=== PATIENT | male | born 1955 | race Caucasian/White ===

== ENCOUNTER 2016-08-04 11:47 | Inpatient (IN) ==
[2016-08-04] MEDS ORDERED: Ipratropium/Albuterol Neb 3 ML ONE (11:59)
[2016-08-04] MEDS ORDERED: Ipratropium/Albuterol Neb 3 ML IH ONE ×3 (12:12→12:38)
[2016-08-04] MEDS ORDERED: Levalbuterol Neb 1.25 MG/3 ML IH ONE (12:38)
--- NOTE | 2016-08-04 12:44 | Emergency Department Note ---
Disposition Clinical Impression: Acute exacerbation of chronic obstructive airways disease Disposition: Admitted As Inpatient Condition: Fair SOB HPI - General Chief Complaint: ED Shortness of Breath/Dyspnea Stated Complaint: has bad cold, Time Seen by Provider: 08/04/16 11:55 Source: patient Limitations: no limitations Nursing Notes Reviewed: Yes Vital Signs Reviewed: Yes - History of Present Illness 60-year-old male presents to the emergency department for evaluation of runny nose, sore throat, and productive cough. Patient is minimally symptoms for the last 6 days. Patient has a prior history of COPD and requires oxygen and nebulizers at home only when symptomatic. Patient has noticed over the last couple days of these require oxygen continuously around the clock and is required multiple breathing treatments at home. Patient complains of tightness to his chest and a feeling of not being able to breathe since last night. He states a fever 102 at home. He denies any localized chest pain denies any vomiting - Related Data Home Medications Medication Instructions Recorded Confirmed Albuterol Sulfate [Proair Hfa] 1 puff IH Q4H 08/04/16 08/04/16 Cyanocobalamin (Vitamin B-12) 1,000 mcg PO DAILY 08/04/16 08/04/16 [Vitamin B12] Cyclobenzaprine HCl 10 mg PO TID PRN 08/04/16 08/04/16 Diclofenac Sodium [Voltaren] 75 mg PO BID 08/04/16 08/04/16 Escitalopram [Lexapro] 10 mg PO DAILY 08/04/16 08/04/16 Fluticasone Propionate Nasal 50 mcg NS BID 08/04/16 08/04/16 [Flonase] Gabapentin [Neurontin] 400 mg PO TID 08/04/16 08/04/16 Ipratropium/Albuterol Neb [Duoneb] 3 ml IH Q6HR 08/04/16 08/04/16 Levofloxacin [Levaquin] 500 mg PO DAILY 08/04/16 08/04/16 Lisinopril [Zestril] 10 mg PO DAILY 08/04/16 08/04/16 Metformin [Glucophage] 1,000 mg PO BIDWM 08/04/16 08/04/16 Mupirocin [Bactroban Oint] 1 appl TP BID 08/04/16 08/04/16 PredniSONE [Deltasone] 20 mg PO DAILY 08/04/16 08/04/16 Allergies Allergy/AdvReac Type Severity Reaction Status Date / Time cephalexin AdvReac Rash Verified 08/04/16 12:08 clindamycin AdvReac Rash Verified 08/04/16 12:08 Review of Systems: Constitutional: See history of present illness HENT: [Negative for congestion.] Eyes: [Negative for discharge.] Respiratory: See history of present illness Cardiovascular: [Negative for chest pain.] Gastrointestinal: [Negative for nausea, vomiting, abdominal pain and diarrhea.] Endocrine: [Negative for excessive thirst,urination] Genitourinary: [Negative for dysuria and frequency.] Musculoskeletal: [Negative for myalgias and arthralgias.] Skin: [Negative for rash.] Neurological: [Negative for dizziness, localized weakness and headaches.] Psychiatric/Behavioral: [Negative for nervous/anxious.] All other systems reviewed and are negative. Past Medical History - Past Medical History Attestation: Yes The following information was validated with the patient. Source: patient Medical history: Reports: arthritis, asthma, COPD, diabetes, hypertension, liver disease, other Surgical history: Reports: hip replacement Psychiatric history: Reports: no psych history - Social History Smoking Status: Current every day smoker Smokeless Tobacco Status: Yes Alcohol use: Reports: none Drug use: Reports: none Physical Exam Constitutional: Patient is alert, obese, [well nourished, well developed], mildly tachypneic and cooperative. . The patient appears, nontoxic, and mildly ill. There is [no pain]. HENT: Head: Normocephalic and atraumatic. Right Ear: External ear normal. Left Ear: External ear normal. Nose: Nose normal. Mouth/Throat: Oropharynx is clear and mucous membranes show [good hydration.][] Eyes: Conjunctivae and EOM are normal. Pupils are equal, round, and reactive to light. Right eye exhibits no discharge. Left eye exhibits no discharge. Neck: Trachea is midline, normal range of motion and phonation normal. Neck supple. Cardiovascular: [Normal rate], regular rhythm, S1 normal, S2 normal, normal heart sounds and intact distal pulses. Exam reveals no gallop and no friction rub. No murmur heard. Pulmonary/Chest: Effort increased No stridor. Mild tachypnea. [No] respiratory distress. There are [no] decreased breath sounds. There are diffuse wheezes and rhonchi heard throughout all lung alexander. There are no Rales Abdominal: Soft. Bowel sounds are normal. There exhibits no distension and no mass. There is no hepatosplenomegaly. There is [no] tenderness, [no] CVA tenderness. There is no rigidity, no rebound, no guarding. Musculoskeletal: Normal range of motion and exhibits [no] edema or tenderness. Neurological: Patient is alert and oriented to [person, place, and time]. Patient displays no atrophy and no tremor. No cranial nerve deficit and exhibits normal muscle tone. Coordination normal. Skin: Skin is warm and dry. No rash noted. No erythema. Psychiatric: Patient has a normal mood,affect, behavior, judgment, and thought content. Course Vital Signs Temperature 99.0 F 08/04/16 12:04 Pulse Rate 109 08/04/16 12:04 Respiratory Rate 24 08/04/16 12:04 Blood Pressure 147/102 08/04/16 12:04 O2 Sat by Pulse Oximetry 98 08/04/16 12:04 Temperature 97.8 F 08/07/16 00:00 Pulse Rate 103 08/07/16 00:00 Respiratory Rate 16 08/07/16 00:00 Blood Pressure 130/85 08/07/16 00:00 O2 Sat by Pulse Oximetry 93 L 08/07/16 00:00 Oxygen Delivery Oxygen Delivery Aerosol Mask Shortness of Breath/Dyspnea - [facility] Narrative Medical decision making narrative: The patient has shown no improvement with breathing treatments and steroids. I discussed the case with Dr. David hospitalist who agrees with admission. - Lab Data Lab results reviewed: Yes I reviewed the patient's lab results. Result diagrams: 08/06/16 05:20 08/04/16 12:10 Lab Results 08/04/16 08/04/16 08/04/16 Range/Units 12:10 12:10 12:10 WBC 13.5 H (4.3-11.1) K/mcL RBC 4.34 (4.19-5.50) M/mcL Hgb 11.1 L (12.9-16.9) g/dL Hct 34.6 L (37.5-50.1) % MCV 79.7 L (83.0-100.0) fL MCH 25.6 L (28.0-33.3) pg MCHC 32.1 (31.6-35.5) g/dL RDW 15.3 H (11.5-14.5) % Plt Count 273 (140-400) K/mcL MPV 9.0 L (9.4-12.4) fL Immature Gran % 0.7 (0-4) % Seg Neutrophils % 79.2 % Lymphocytes % 12.3 % Monocytes % 6.6 % Eosinophils % 1.0 % Basophils % 0.2 % Neutrophils # 10.7 H (1.6-8.9) K/mcL Lymphocytes # 1.7 (0.6-4.6) K/mcL Monocytes # 0.9 (0.0-1.3) K/mcL Eosinophils # 0.1 (0.0-0.6) K/mcL Basophils # 0.0 (0.0-0.2) K/mcL PT 20.3 H (9.4-12.1) Seconds INR 1.8 APTT 31.9 (26.0-36.0) Seconds Sodium 136 (136-145) mEq/L Potassium 3.8 (3.5-4.5) mEq/L Chloride 97 L (98-109) mEq/L Carbon Dioxide 28 (19-29) mEq/L BUN 15 (8-26) mg/dL Creatinine 0.86 (0.72-1.25) mg/dL Est GFR ( Amer) > 60 (> 60) Est GFR (Non-Af Amer) > 60 (> 60) BUN/Creatinine Ratio 17 (6-26) Glucose 105 H (70-99) mg/dL POC Glucose (58-89) Calculated Osmolality 283 (280-300) Calcium 9.7 (8.6-10.8) mg/dL Total Bilirubin 0.8 (0.2-1.2) mg/dL Direct Bilirubin 0.4 (0.0-0.5) mg/dL Indirect Bilirubin 0.4 (0.0-1.2) mg/dL AST 26 (5-34) Units/L ALT 39 (0-55) Units/L Alkaline Phosphatase 94 (38-126) Units/L Troponin I (0-0.03) ng/mL B-Natriuretic Peptide (0-100) pg/mL Serum Total Protein 7.1 (6.0-8.3) g/dL Albumin 3.0 L (3.5-5.0) g/dL Globulin 4.1 H (2.4-3.5) g/dL Albumin/Globulin Ratio 0.7 L (1.1-2.2) 08/04/16 08/04/16 08/04/16 Range/Units 12:10 12:10 16:46 WBC (4.3-11.1) K/mcL RBC (4.19-5.50) M/mcL Hgb (12.9-16.9) g/dL Hct (37.5-50.1) % MCV (83.0-100.0) fL MCH (28.0-33.3) pg MCHC (31.6-35.5) g/dL RDW (11.5-14.5) % Plt Count (140-400) K/mcL MPV (9.4-12.4) fL Immature Gran % (0-4) % Seg Neutrophils % % Lymphocytes % % Monocytes % % Eosinophils % % Basophils % % Neutrophils # (1.6-8.9) K/mcL Lymphocytes # (0.6-4.6) K/mcL Monocytes # (0.0-1.3) K/mcL Eosinophils # (0.0-0.6) K/mcL Basophils # (0.0-0.2) K/mcL PT (9.4-12.1) Seconds INR APTT (26.0-36.0) Seconds Sodium (136-145) mEq/L Potassium (3.5-4.5) mEq/L Chloride (98-109) mEq/L Carbon Dioxide (19-29) mEq/L BUN (8-26) mg/dL Creatinine (0.72-1.25) mg/dL Est GFR ( Amer) (> 60) Est GFR (Non-Af Amer) (> 60) BUN/Creatinine Ratio (6-26) Glucose (70-99) mg/dL POC Glucose 148 H (58-89) Calculated Osmolality (280-300) Calcium (8.6-10.8) mg/dL Total Bilirubin (0.2-1.2) mg/dL Direct Bilirubin (0.0-0.5) mg/dL Indirect Bilirubin (0.0-1.2) mg/dL AST (5-34) Units/L ALT (0-55) Units/L Alkaline Phosphatase (38-126) Units/L Troponin I 0.01 (0-0.03) ng/mL B-Natriuretic Peptide < 10 (0-100) pg/mL Serum Total Protein (6.0-8.3) g/dL Albumin (3.5-5.0) g/dL Globulin (2.4-3.5) g/dL Albumin/Globulin Ratio (1.1-2.2) 08/04/16 08/05/16 08/05/16 Range/Units 20:09 07:19 11:25 WBC (4.3-11.1) K/mcL RBC (4.19-5.50) M/mcL Hgb (12.9-16.9) g/dL Hct (37.5-50.1) % MCV (83.0-100.0) fL MCH (28.0-33.3) pg MCHC (31.6-35.5) g/dL RDW (11.5-14.5) % Plt Count (140-400) K/mcL MPV (9.4-12.4) fL Immature Gran % (0-4) % Seg Neutrophils % % Lymphocytes % % Monocytes % % Eosinophils % % Basophils % % Neutrophils # (1.6-8.9) K/mcL Lymphocytes # (0.6-4.6) K/mcL Monocytes # (0.0-1.3) K/mcL Eosinophils # (0.0-0.6) K/mcL Basophils # (0.0-0.2) K/mcL PT (9.4-12.1) Seconds INR APTT (26.0-36.0) Seconds Sodium (136-145) mEq/L Potassium (3.5-4.5) mEq/L Chloride (98-109) mEq/L Carbon Dioxide (19-29) mEq/L BUN (8-26) mg/dL Creatinine (0.72-1.25) mg/dL Est GFR ( Amer) (> 60) Est GFR (Non-Af Amer) (> 60) BUN/Creatinine Ratio (6-26) Glucose (70-99) mg/dL POC Glucose 141 H 187 H 201 H (58-89) Calculated Osmolality (280-300) Calcium (8.6-10.8) mg/dL Total Bilirubin (0.2-1.2) mg/dL Direct Bilirubin (0.0-0.5) mg/dL Indirect Bilirubin (0.0-1.2) mg/dL AST (5-34) Units/L ALT (0-55) Units/L Alkaline Phosphatase (38-126) Units/L Troponin I (0-0.03) ng/mL B-Natriuretic Peptide (0-100) pg/mL Serum Total Protein (6.0-8.3) g/dL Albumin (3.5-5.0) g/dL Globulin (2.4-3.5) g/dL Albumin/Globulin Ratio (1.1-2.2) - Radiology Data Radiology results reviewed: Yes I reviewed the patient's radiology results. I have contemporaneously read the radiology report from the radiologist which has the following findings: Chest x-ray IMPRESSION: Mildly prominent lung markings at the bilateral infrahilar regions, may be related to bronchitis versus early pneumonia. - EKG Data EKG attestation: Yes I reviewed and interpreted this EKG. EKG shows normal: Reports: sinus rhythm, axis, intervals, QRS complexes, ST-T waves Rate: Reports: tachycardia
[2016-08-04 12:51] LABS: Basophils % 0.2 %; Eosinophils # 0.1 K/mcL (0.0-0.6); Hematocrit 34.6 % (37.5-50.1); Hemoglobin 11.1 g/dL (12.9-16.9); Immature Granulocytes % 0.7 % (0-4); Lymphocytes # 1.7 K/mcL (0.6-4.6); Lymphocytes % 12.3 %; Mean Corpuscular HGB Conc 32.1 g/dL (31.6-35.5); Mean Corpuscular Hemoglobin 25.6 pg (28.0-33.3); Mean Corpuscular Volume 79.7 fL (83.0-100.0); Monocytes # 0.9 K/mcL (0.0-1.3); Monocytes % 6.6 %; Neutrophils # 10.7 K/mcL (1.6-8.9); Platelet Count 273 K/mcL (140-400); Red Blood Count 4.34 M/mcL (4.19-5.50); Red Cell Distribution Width 15.3 % (11.5-14.5); Segmented Neutrophils % 79.2 %
[2016-08-04 12:53] LABS: Alanine Aminotransferase 39 Units/L (0-55); Albumin/Globulin Ratio 0.7 (1.1-2.2); Alkaline Phosphatase 94 Units/L (38-126); Aspartate Amino Transferase 26 Units/L (5-34); BUN/Creatinine Ratio 17 (6-26); Bilirubin,Direct 0.4 mg/dL (0.0-0.5); Bilirubin,Indirect 0.4 mg/dL (0.0-1.2); Bilirubin,Total 0.8 mg/dL (0.2-1.2); Blood Urea Nitrogen 15 mg/dL (8-26); Calcium 9.7 mg/dL (8.6-10.8); Carbon Dioxide 28 mEq/L (19-29); Chloride 97 mEq/L (98-109); Globulin 4.1 g/dL (2.4-3.5); Glucose 105 mg/dL (70-99); Osmolality,Calculated 283 (280-300); Potassium 3.8 mEq/L (3.5-4.5); Sodium 136 mEq/L (136-145); Total Protein 7.1 g/dL (6.0-8.3); eGFR For African Americans > 60 (> 60); eGFR For Non-African Americans > 60 (> 60)
[2016-08-04 13:08] LABS: INR 1.8; Prothrombin Time 20.3 Seconds (9.4-12.1)
[2016-08-04 13:11] LABS: Activated Partial Thrombo Time 31.9 Seconds (26.0-36.0)
[2016-08-04] MEDS ORDERED: Naloxone 0.4 MG/ML INJ IVP PRN ×2 (13:48→13:54)
[2016-08-04] MEDS ORDERED: Ondansetron ODT 4 MG TAB.RAPDIS SL PRN (13:54)
[2016-08-04] MEDS ORDERED: Ipratropium/Albuterol Neb 3 ML IH SCH ×2 (14:00→16:00)
[2016-08-04] MEDS ORDERED: Albuterol 2.5 MG/3 ML NEBULIZER IH SCH (14:00)
--- NOTE | 2016-08-04 14:33 | Electrocardiograph Report ---
[facility] Test Date: 2016-08-04 Pat Name: Ceht Bose Department: 2001 Room: 116 Gender: M [employer]: Tlc : 1955 Requested By: Brad Smith Order Number: [id number] Susanne MD: Zachary Granado DO Measurements Intervals [place] Rate: 108 P: 59 MD: 150 QRS: 51 QRSD: 106 T: 53 QT: 310 QTc: 373 Interpretive Statements Sinus tachycardia Electronically Signed On 08-04-16 14:32:05 EST by Zachary Granado DO
[2016-08-04] MEDS: Acetaminophen 325 MG TABLET PO PRN ×2 (15:33→23:12)
[2016-08-04] MEDS: Gabapentin 400 MG CAPSULE PO SCH ×2 (15:34→20:47)
--- NOTE | 2016-08-04 15:43 | Internal Med History&Physical ---
Date of Encounter: 08/10/16 Time of Encounter: 15:40 Assessment and Plan (1) AB (asthmatic bronchitis) Status: Acute Qualifiers: Asthma severity: moderate persistent Asthma complication type: with acute exacerbation Qualified Code(s): J45.41 - Moderate persistent asthma with ( acute) exacerbation (2) Pneumonia Status: Acute Aggressive steroids and antibiotics breathing treatments etc. (3) Acute exacerbation of COPD with asthma Status: Acute See above. History of asthma COPD and obviously an acute viral and/or bacterial infection Internal Medicine - H&P: HPI Chief complaint: Patient feels increasingly short of breath coughing productive green sputum Admitted From: Emergency Dept Plans for Post Hospital Care: Home History of present illness: Mr. Bose is a 60 year old male Patient states her last several days she has had increasing shortness of breath in spite of wearing O2 at all times and using his nebulizer. Past Med Surg Social Fam HX - Past Medical History Medical history: arthritis, asthma, COPD, diabetes, hypertension, liver disease , other Psychiatric history: no psych history - Past Surgical History Surgical History: hip replacement - Social History Smoking Status: Current every day smoker Smokeless Tobacco Status: Yes Alcohol use: none Drug use: none Internal Medicine - H&P: Meds Albuterol Sulfate [Proair Hfa] 1 puff IH Q4H 08/04/16 [History] Cyanocobalamin (Vitamin B-12) [Vitamin B12] 1,000 mcg PO DAILY 08/04/16 [History ] Cyclobenzaprine HCl 10 mg PO TID PRN 08/04/16 [History] Diclofenac Sodium [Voltaren] 75 mg PO BID 08/04/16 [History] Escitalopram [Lexapro] 10 mg PO DAILY 08/04/16 [History] Fluticasone Propionate Nasal [Flonase] 50 mcg NS BID 08/04/16 [History] Gabapentin [Neurontin] 400 mg PO TID 08/04/16 [History] Ipratropium/Albuterol Neb [Duoneb] 3 ml IH Q6HR 08/04/16 [History] Lisinopril [Zestril] 10 mg PO DAILY 08/04/16 [History] Metformin [Glucophage] 1,000 mg PO BIDWM 08/04/16 [History] Mupirocin [Bactroban Oint] 1 appl TP BID 08/04/16 [History] Levofloxacin [Levaquin] 500 mg PO DAILY #7 tablet 08/07/16 [Rx] PredniSONE [Deltasone] 60 mg PO DAILY #15 tablet 08/07/16 [Rx] Allergies cephalexin Adverse Reaction (Verified 08/04/16 12:08) Rash clindamycin Adverse Reaction (Verified 08/04/16 12:08) Rash All Systems PM: A 10-system review of systems was performed and is negative for pertinent findings except as documented above in the HPI. - Constitutional Vitals: Temp Pulse Resp BP Pulse Ox 98.3 F 100 24 136/82 95 08/04/16 15:17 08/04/16 15:17 08/04/16 15:17 08/04/16 15:17 08/04/16 15:17 - Head Head exam: Present: atraumatic, normal inspection, normocephalic - Neck Neck exam general surgery: Present: supple, trachea midline. Absent: lymphadenopathy - Respiratory Respiratory exam: Present: CTAB, prolonged expiratory phase. Absent: accessory muscle use, rales, rhonchi, wheezes Additional comments: Patient has some very coarse breath sounds increased rhonchi and expiratory wheezes bilaterally. - Cardiovascular Cardiovascular exam: Present: RRR, +S1, +S2. Absent: diastolic murmur, gallop, rubs, systolic murmur - GI/Abdominal GI/Abdominal exam: Present: normal bowel sounds, soft, no peritoneal signs. Absent: distended, tenderness Internal Med - H&P Results - Labs CBC & Chem 7: 08/06/16 05:20 08/04/16 12:10 Labs: Labs noted - VTE Reasons for not Prescribing Prophylaxis: Treatment not Indicated - Low risk for VTE
[2016-08-04] MEDS: Levofloxacin 500 MG/100 ML 500 MG/100 ML BAG IVPB SCH (16:03)
[2016-08-04] MEDS: Ipratropium/Albuterol Neb 3 ML IH SCH ×2 (16:04→20:47)
[2016-08-04] MEDS: MethylPREDNISolone 40 MG/ML VIAL IVP SCH ×2 (16:04→23:11)
[2016-08-04] MEDS: *HR* Metformin 500 MG TABLET PO SCH (16:04)
[2016-08-04] MEDS: Fluticasone Propionate Nasal 50 MCG/SPRAY BOTTLE NS SCH (20:47)
[2016-08-04] MEDS: Diclofenac Sodium 75 MG TABLET PO SCH (20:47)
[2016-08-05] MEDS ORDERED: Albuterol 2.5 MG/3 ML NEBULIZER IH SCH
[2016-08-05] MEDS: Ipratropium/Albuterol Neb 3 ML IH SCH ×4 (03:18→21:25)
[2016-08-05] MEDS: MethylPREDNISolone 40 MG/ML VIAL IVP SCH ×3 (06:23→17:29)
[2016-08-05] MEDS: Albuterol 2.5 MG/3 ML NEBULIZER IH PRN ×2 (06:28→16:14)
[2016-08-05] MEDS ORDERED: PredniSONE 20 MG TABLET PO SCH (09:00)
[2016-08-05] MEDS: Fluticasone Propionate Nasal 50 MCG/SPRAY BOTTLE NS SCH ×2 (09:51→21:11)
[2016-08-05] MEDS: *HR* Metformin 500 MG TABLET PO SCH ×2 (09:51→17:29)
[2016-08-05] MEDS: Gabapentin 400 MG CAPSULE PO SCH ×3 (09:51→21:11)
[2016-08-05] MEDS: Diclofenac Sodium 75 MG TABLET PO SCH ×2 (09:51→21:12)
[2016-08-05] MEDS: Cyanocobalamin (B-12) 1,000 MCG TABLET PO SCH (09:51)
--- NOTE | 2016-08-05 13:25 | Internal Med Progress Note ---
Date of Encounter: 08/05/16 Time of Encounter: 13:23 - Assessment and plan (1) AB (asthmatic bronchitis) Current Visit: Yes Status: Acute Assessment and plan: Possible bacterial or viral bronchitis along with COPD Qualifiers: Asthma severity: moderate persistent Asthma complication type: with acute exacerbation Qualified Code(s): J45.41 - Moderate persistent asthma with ( acute) exacerbation (2) Pneumonia Current Visit: Yes Status: Acute Assessment and plan: Questionable pneumonic process will follow chest x-ray. Current chest x-ray shows questionable area by basilarly. That might be worse (3) Acute exacerbation of COPD with asthma Current Visit: Yes Status: Acute Assessment and plan: Possible infectious etiology exacerbating this. - Time Spent With Patient less than 15 minutes - Subjective Interval history: Feels a little better 8 regions maybe a little easier. Her cough and up as much sputum - Constitutional Vitals: Temp Pulse Resp BP Pulse Ox 98.2 F 97 17 139/66 94 L 08/05/16 11:00 08/05/16 11:00 08/05/16 11:00 08/05/16 11:00 08/05/16 11:00 - Head Head exam: Present: atraumatic, normal inspection, normocephalic - Neck Neck exam general surgery: Present: supple, trachea midline. Absent: lymphadenopathy - Respiratory Respiratory exam: Present: CTAB. Absent: accessory muscle use, rales, rhonchi, wheezes Additional comments: Still some rhonchi and still some expiratory wheezes but they are improved from yesterday - GI/Abdominal GI/Abdominal exam: Present: normal bowel sounds, soft, no peritoneal signs. Absent: distended, tenderness Internal Medicine: Result - Labs CBC & Chem 7: 08/04/16 12:10 08/04/16 12:10 Labs: Lab is stable - ABG Interpretation ABG results: PT/INR, D-dimer PT 20.3 Seconds (9.4-12.1) H 08/04/16 12:10 - Impressions Impressions Chest X-Ray 08/05/16 15:38 IMPRESSION: Mildly increased bilateral lower lung airspace disease. Pneumonia and pulmonary consolidation are the primary considerations. D/ / Jina Farmer Cha, MD / Jina Farmer Cha, MD Interpreting Provider: Jina Farmer Cha, MD - VTE Reasons for not Prescribing Prophylaxis: Treatment not Indicated - Low risk for VTE Documentation of Mechanical Device: Graduated compression elastic hosiery Consult Discharge Plan - Plan Referrals: Elvira Santiago MD [Primary Care Provider] -
[2016-08-05] MEDS: Levofloxacin 500 MG/100 ML 500 MG/100 ML BAG IVPB SCH (14:20)
[2016-08-06] MEDS: MethylPREDNISolone 40 MG/ML VIAL IVP SCH ×4 (00:29→16:01)
[2016-08-06] MEDS: Albuterol 2.5 MG/3 ML NEBULIZER IH PRN ×2 (00:42→19:36)
[2016-08-06] MEDS: Ipratropium/Albuterol Neb 3 ML IH SCH ×4 (05:35→23:30)
[2016-08-06 05:46] LABS: Basophils # 0.1 K/mcL (0.0-0.2); Basophils % 0.5 %; Hematocrit 34.3 % (37.5-50.1); Hemoglobin 10.9 g/dL (12.9-16.9); Immature Granulocytes % 5.3 % (0-4); Lymphocytes # 1.2 K/mcL (0.6-4.6); Mean Corpuscular HGB Conc 31.8 g/dL (31.6-35.5); Mean Corpuscular Hemoglobin 25.1 pg (28.0-33.3); Mean Corpuscular Volume 78.9 fL (83.0-100.0); Mean Platelet Volume 9.2 fL (9.4-12.4); Monocytes # 0.7 K/mcL (0.0-1.3); Monocytes % 4.2 %; Neutrophils # 14.6 K/mcL (1.6-8.9); Platelet Count 304 K/mcL (140-400); Red Blood Count 4.35 M/mcL (4.19-5.50)
[2016-08-06] MEDS: Fluticasone Propionate Nasal 50 MCG/SPRAY BOTTLE NS SCH ×2 (09:12→23:28)
[2016-08-06] MEDS: Diclofenac Sodium 75 MG TABLET PO SCH ×2 (09:14→23:29)
[2016-08-06] MEDS: Cyanocobalamin (B-12) 1,000 MCG TABLET PO SCH (09:14)
[2016-08-06] MEDS: Gabapentin 400 MG CAPSULE PO SCH ×3 (09:14→23:29)
[2016-08-06] MEDS: *HR* Metformin 500 MG TABLET PO SCH ×2 (09:14→16:01)
[2016-08-06] MEDS: Levofloxacin 500 MG/100 ML 500 MG/100 ML BAG IVPB SCH (16:00)
[2016-08-07] MEDS: MethylPREDNISolone 40 MG/ML VIAL IVP SCH ×2 (00:05→06:19)
[2016-08-07] MEDS: Ipratropium/Albuterol Neb 3 ML IH SCH ×2 (04:28→08:52)
[2016-08-07] MEDS: Albuterol 2.5 MG/3 ML NEBULIZER IH PRN (06:19)
[2016-08-07] MEDS: Fluticasone Propionate Nasal 50 MCG/SPRAY BOTTLE NS SCH (08:51)
[2016-08-07] MEDS: *HR* Metformin 500 MG TABLET PO SCH (08:51)
[2016-08-07] MEDS: Diclofenac Sodium 75 MG TABLET PO SCH (08:52)
[2016-08-07] MEDS: Gabapentin 400 MG CAPSULE PO SCH (08:52)
[2016-08-07] MEDS: Cyanocobalamin (B-12) 1,000 MCG TABLET PO SCH (08:52)
--- NOTE | 2016-08-07 11:36 | Discharge Summary ---
Date of Encounter: 08/07/16 Time of Encounter: 11:33 - Discharge Diagnosis (1) Acute exacerbation of chronic obstructive airways disease Priority: Primary Status: Acute Comments: Improved - Discharge Medications Prescriptions: Levofloxacin [Levaquin] 500 mg PO DAILY #7 tablet PredniSONE [Deltasone] 60 mg PO DAILY #15 tablet Home Medications: Albuterol Sulfate [Proair Hfa] 1 puff IH Q4H 08/04/16 [History] Cyanocobalamin (Vitamin B-12) [Vitamin B12] 1,000 mcg PO DAILY 08/04/16 [History ] Cyclobenzaprine HCl 10 mg PO TID PRN 08/04/16 [History] Diclofenac Sodium [Voltaren] 75 mg PO BID 08/04/16 [History] Escitalopram [Lexapro] 10 mg PO DAILY 08/04/16 [History] Fluticasone Propionate Nasal [Flonase] 50 mcg NS BID 08/04/16 [History] Gabapentin [Neurontin] 400 mg PO TID 08/04/16 [History] Ipratropium/Albuterol Neb [Duoneb] 3 ml IH Q6HR 08/04/16 [History] Lisinopril [Zestril] 10 mg PO DAILY 08/04/16 [History] Metformin [Glucophage] 1,000 mg PO BIDWM 08/04/16 [History] Mupirocin [Bactroban Oint] 1 appl TP BID 08/04/16 [History] Levofloxacin [Levaquin] 500 mg PO DAILY #7 tablet 08/07/16 [Rx] PredniSONE [Deltasone] 60 mg PO DAILY #15 tablet 08/07/16 [Rx] Allergies/Adverse Reactions: Allergies cephalexin Adverse Reaction (Verified 08/04/16 12:08) Rash clindamycin Adverse Reaction (Verified 08/04/16 12:08) Rash Date of admission: 08/05/16 15:30 Primary care physician: Elvira Santiago Discharging clinician: Radha Hector Anticipated date of discharge: 08/07/16 - Patient Status Disposition: Home, Self-Care Condition: Fair Overall status at discharge: patient is back to baseline - Discharge Instructions Instructions: Asthma (DC) Follow Up With: Elvira Santiago MD [Primary Care Provider] - - Diet and Activity Activity: increase activity as tolerated Diet: advance to your usual diet Hospital course: Mr. Bose is a 60 year old male presents to the emergency department for evaluation of runny nose, sore throat, and productive cough. Patient is minimally symptoms for the last 6 days. Patient has a prior history of COPD and requires oxygen and nebulizers at home only when symptomatic. Patient has noticed over the last couple days of these require oxygen continuously around the clock and is required multiple breathing treatments at home. Patient complains of tightness to his chest and a feeling of not being able to breathe since last night. He states a fever 102 at home. He denies any localized chest pain denies any vomiting Patient was admitted for IV antibiotics. Pulmonary treatment was maintained. During his stay due to improved. In the morning of discharge he was feeling much better and wants to go home. He will be sent home to continue with his home nebulizer treatment. He was encouraged to quit smoking. Prescription for Levaquin and prednisone given. Follow up with his primary care physician in the next 2-3 days. Time spent discussing smoking cessation with patient: more than 10 minutes - Time Spent with Patient Total time spent providing and/or coordinating discharge services: Greater than 30 minutes - Constitutional Vitals: Temp Pulse Resp BP Pulse Ox 97.8 F 84 18 126/69 97 08/07/16 07:48 08/07/16 07:48 08/07/16 07:48 08/07/16 07:48 08/07/16 07:48 General appearance: Present: A&O X 3, pleasant, no acute distress - Respiratory Respiratory exam: Present: CTAB. Absent: accessory muscle use, rales, rhonchi, wheezes - Cardiovascular Cardiovascular exam: Present: RRR, +S1, +S2. Absent: diastolic murmur, gallop, rubs, systolic murmur - GI/Abdominal GI/Abdominal exam: Present: normal bowel sounds, soft, no peritoneal signs. Absent: distended, tenderness - Extremities Exam Extremities exam: Present: warm, radial pulses palpable and symetrical. Absent : calf tenderness, cyanotic, pedal edema - Neurological Exam Neurological exam: Present: CN II-XII intact, oriented X3, no focal deficits. Absent: pronater drift, facial droop, speech deficit - Skin Skin exam: Present: dry, intact - VTE Reasons for not Prescribing Prophylaxis: Treatment not Indicated - Low risk for VTE Documentation of Mechanical Device: Graduated compression elastic hosiery
[2016-08-07 12:07] VITALS: BP 98/51
== END 2016-08-07 13:00 | disposition home or self-care (01) | DRG 190 ==
LOC: EMEROOGRE 11:47 → INPGRE 11:47
PROVIDERS: ADMIT Internal Medicine; ATTEND Internal Medicine

== ENCOUNTER 2017-08-09 21:13 | Observation (INO) ==
--- NOTE | 2017-08-09 21:21 | Emergency Department Note ---
Disposition Clinical Impression: Acute exacerbation of chronic obstructive airways disease, Dehydration Disposition: Admitted As Inpatient SOB HPI - General Stated Complaint: Difficulty breathing Time Seen by Provider: 08/09/17 21:15 Source: patient Mode of arrival: ambulatory Limitations: no limitations Nursing Notes Reviewed: Yes Vital Signs Reviewed: Yes - History of Present Illness Patient says he thinks is coming down with the flu. He has been increasingly short of breath for the past couple of days. He has a cough but is not coughing anything up. He has not had a fever. He says he been using his breathing machine but can only afford albuterol handheld DuoNeb and that is not helping as much. Denies any chest pain Pt Subjective Complaint: shortness of breath, cough Onset (ago): day(s) (2) Severity: moderate Consistency/Duration: intermittent Improves with: oxygen, rest, bronchodilators Worsens with: exertion Known history of: COPD Associated symptoms: Reports: cough. Denies: chest pain, sputum production, nausea/vomiting, abdominal pain - Related Data Home Medications Medication Instructions Recorded Confirmed Albuterol Sulfate [Proair Hfa] 1 puff IH Q4H 08/04/16 08/09/17 Cyanocobalamin (Vitamin B-12) 1,000 mcg PO DAILY 08/04/16 08/09/17 [Vitamin B12] Cyclobenzaprine HCl 10 mg PO TID PRN 08/04/16 08/09/17 Diclofenac Sodium [Voltaren] 75 mg PO BID 08/04/16 08/09/17 Gabapentin [Neurontin] 400 mg PO QID 08/04/16 08/09/17 Ipratropium/Albuterol Neb [Duoneb] 3 ml IH Q6HR PRN 08/04/16 08/09/17 Lisinopril [Zestril] 5 mg PO BID 08/04/16 08/09/17 amLODIPine [Norvasc] 5 mg PO DAILY 06/19/17 08/09/17 Previous Rx's Medication Instructions Recorded Metoprolol [Lopressor] 25 mg PO BID #60 tablet 06/28/17 Tamsulosin [Flomax] 0.4 mg PO DAILY #30 capsule 06/28/17 Allergies Allergy/AdvReac Type Severity Reaction Status Date / Time cephalexin AdvReac Rash Verified 08/09/17 21:23 clindamycin AdvReac Rash Verified 08/09/17 21:23 All systems ED: reviewed and negative except as stated. Review of Systems: As Per HPI Constitutional: Reports: as per HPI Eyes: Denies: eye pain, eye discharge, vision change ENT ED: Denies: ear pain, throat pain, dental pain, hearing loss, epistaxis, congestion, dysphagia Cardiovascular: Denies: chest pain, palpitations, dyspnea on exertion, edema, syncope Respiratory: Reports: cough, dyspnea, wheezes. Denies: hemoptysis, stridor Gastrointestinal: Denies: abdominal pain, nausea, vomiting, diarrhea, constipation, hematemesis, melena, hematochezia Genitourinary: Denies: urgency, dysuria, frequency, hematuria Musculoskeletal: Denies: back pain, neck pain, arthralgia, myalgia Integumentary: Denies: rash, abrasion, lesions Neurological: Denies: headache, weakness, numbness, paresthesias, confusion, abnormal gait, vertigo Psychiatric: Denies: anxiety, depression, suicidal thoughts, homicidal thoughts , auditory hallucinations, visual hallucinations Endocrine: Denies: fatigue Hematological/Lymphatic: Denies: easy bleeding, easy bruising Allergic/Immunologic: Denies: facial swelling, urticaria Past Medical History - Past Medical History Attestation: Yes The following information was validated with the patient. Source: patient, nursing notes reviewed Medical history: Reports: arthritis, asthma, COPD, diabetes, hypertension, other Surgical history: Reports: herniorrhaphy, hip replacement Psychiatric history: Reports: anxiety, depression - Social History Smoking Status: Current every day smoker Smokeless Tobacco Status: Yes Alcohol use: Reports: none Drug use: Reports: none Physical Exam - General Limitations: no limitations General appearance: alert, in no apparent distress - Head Head exam: atraumatic - Eye Eye exam: Present: normal appearance, PERRL, EOMI - ENT ENT exam: normal exam, normal oropharynx, mucous membranes moist - Neck Neck exam: Present: normal inspection, full ROM, trachea midline - Chest Chest inspection: Present: normal inspection, symmetric chest wall rise - Respiratory Respiratory exam: Present: wheezes, prolonged expiratory phase. Absent: respiratory distress, accessory muscle use - Cardiovascular Cardiovascular exam: Present: regular rate - Abdominal Exam Abdominal exam: Present: soft, Non-Tender. Absent: tenderness, distention, guarding, rebound, rigidity - Extremities Exam Extremities exam: Present: normal inspection - Back Exam Back exam: Present: normal inspection - Neurological Exam Neurological exam: Present: alert, oriented X3, CN II-XII intact - Psychiatric Psychiatric exam: Present: normal affect, normal mood - Skin Skin exam: Present: warm, dry, intact Course Vital Signs Temperature 98.8 F 08/09/17 21:19 Pulse Rate 116 08/09/17 21:19 Respiratory Rate 32 08/09/17 21:19 Blood Pressure 134/86 08/09/17 21:19 O2 Sat by Pulse Oximetry 96 08/09/17 21:19 Temperature 98.5 F 08/09/17 23:13 Pulse Rate 115 08/09/17 23:13 Respiratory Rate 18 08/09/17 23:13 Blood Pressure 122/70 08/09/17 23:13 O2 Sat by Pulse Oximetry 95 08/10/17 00:08 Oxygen Delivery Oxygen Delivery Room Air Shortness of Breath/Dyspnea - MDM Narrative Medical decision making narrative: Case was discussed with Dr. David who accepts admission to the hospital. your blood pressure was normal today but follow up periodically with your doctor for a recheck - Lab Data Lab results reviewed: Yes I reviewed the patient's lab results. Result diagrams: 08/09/17 21:35 08/09/17 21:35 Lab Results 08/09/17 08/09/17 08/09/17 Range/Units 21:35 21:35 21:35 WBC 11.9 H (4.3-11.1) K/mcL RBC 4.27 (4.19-5.50) M/mcL Hgb 11.0 L (12.9-16.9) g/dL Hct 35.4 L (37.5-50.1) % MCV 82.9 L (83.0-100.0) fL MCH 25.8 L (28.0-33.3) pg MCHC 31.1 L (31.6-35.5) g/dL RDW 14.3 (11.5-14.5) % Plt Count 318 (140-400) K/mcL MPV 9.3 L (9.4-12.4) fL Immature Gran % 0.5 (0-4) % Seg Neutrophils % 70.2 % Lymphocytes % 17.8 % Monocytes % 5.5 % Eosinophils % 5.6 % Basophils % 0.4 % Neutrophils # 8.4 (1.6-8.9) K/mcL Lymphocytes # 2.1 (0.6-4.6) K/mcL Monocytes # 0.7 (0.0-1.3) K/mcL Eosinophils # 0.7 H (0.0-0.6) K/mcL Basophils # 0.1 (0.0-0.2) K/mcL Sodium 141 (136-145) mEq/L Potassium 5.2 H (3.5-4.5) mEq/L Chloride 103 (98-109) mEq/L Carbon Dioxide 27 (19-29) mEq/L BUN 32 H (8-26) mg/dL Creatinine 1.85 H (0.72-1.25) mg/dL Est GFR ( Amer) 45 L (> 60) Est GFR (Non-Af Amer) 37 L (> 60) BUN/Creatinine Ratio 17 (6-26) Glucose 111 H (70-99) mg/dL Calculated Osmolality 300 (280-300) Calcium 10.2 (8.6-10.8) mg/dL Troponin I 0.02 (0-0.03) ng/mL - Radiology Data Radiology results reviewed: Yes I reviewed the patient's radiology results. - EKG Data EKG attestation: Yes I reviewed and interpreted this EKG. EKG results narrative: EKG shows relative sinus tachycardia at a rate of 117 bpm by my read. [place] interval of 151 ms QRS duration of 86 ms QT QTC intervals 281 at 351 ms respectively R axis of 72 degrees
[2017-08-09] MEDS ORDERED: methylPREDNISolone 125 MG/2 ML VIAL IVP ONE (21:22)
[2017-08-09] MEDS ORDERED: Ipratropium/Albuterol Neb 3 ML IH ONE (21:22)
[2017-08-09 21:43] LABS: Basophils # 0.1 K/mcL (0.0-0.2); Basophils % 0.4 %; Eosinophils # 0.7 K/mcL (0.0-0.6); Eosinophils % 5.6 %; Hematocrit 35.4 % (37.5-50.1); Immature Granulocytes % 0.5 % (0-4); Lymphocytes # 2.1 K/mcL (0.6-4.6); Lymphocytes % 17.8 %; Mean Corpuscular HGB Conc 31.1 g/dL (31.6-35.5); Mean Corpuscular Hemoglobin 25.8 pg (28.0-33.3); Mean Corpuscular Volume 82.9 fL (83.0-100.0); Mean Platelet Volume 9.3 fL (9.4-12.4); Monocytes # 0.7 K/mcL (0.0-1.3); Monocytes % 5.5 %; Neutrophils # 8.4 K/mcL (1.6-8.9); Platelet Count 318 K/mcL (140-400); Red Blood Count 4.27 M/mcL (4.19-5.50); Red Cell Distribution Width 14.3 % (11.5-14.5); Segmented Neutrophils % 70.2 %
[2017-08-09 21:56] LABS: Calcium 10.2 mg/dL (8.6-10.8); Potassium 5.2 mEq/L (3.5-4.5)
[2017-08-09] MEDS ORDERED: Nitroglycerin 0.4 MG TAB.SUBL SL PRN (22:13)
[2017-08-09] MEDS ORDERED: Albuterol 2.5 MG/3 ML NEBULIZER IH ONE (22:14)
[2017-08-09] MEDS ORDERED: Levofloxacin 500 MG/100 ML 500 MG/100 ML BAG IVPB ONE (22:15)
[2017-08-09] MEDS ORDERED: Famotidine 20 MG TABLET PO SCH (22:45)
[2017-08-10] MEDS ORDERED: Nitroglycerin 0.4 MG TAB.SUBL SL PRN (00:52)
[2017-08-10] MEDS ORDERED: Acetaminophen 325 MG TABLET PO PRN (00:52)
[2017-08-10] MEDS ORDERED: 0.9 % Sodium Chloride 1,000 ML IVC SCH (00:52)
[2017-08-10] MEDS ORDERED: Naloxone 0.4 MG/ML INJ IVP PRN (00:52)
[2017-08-10] MEDS ORDERED: Mag Hydrox/Al Hydrox/Simeth 30 ML UDC PO PRN (00:52)
[2017-08-10] MEDS ORDERED: 0.9 % Sodium Chloride 1,000 ML ONE (01:06)
[2017-08-10] MEDS: Ipratropium/Albuterol Neb 3 ML IH SCH ×3 (03:58→13:45)
[2017-08-10 04:45] LABS: Basophils % 0.2 %; Eosinophils % 0.1 %; Hematocrit 34.5 % (37.5-50.1); Hemoglobin 10.6 g/dL (12.9-16.9); Immature Granulocytes % 0.5 % (0-4); Lymphocytes # 0.6 K/mcL (0.6-4.6); Lymphocytes % 4.8 %; Mean Corpuscular HGB Conc 30.7 g/dL (31.6-35.5); Mean Corpuscular Hemoglobin 25.7 pg (28.0-33.3); Mean Corpuscular Volume 83.5 fL (83.0-100.0); Mean Platelet Volume 9.6 fL (9.4-12.4); Monocytes # 0.1 K/mcL (0.0-1.3); Monocytes % 0.5 %; Neutrophils # 12.3 K/mcL (1.6-8.9); Platelet Count 284 K/mcL (140-400); Red Blood Count 4.13 M/mcL (4.19-5.50); Red Cell Distribution Width 14.2 % (11.5-14.5); Segmented Neutrophils % 93.9 %
[2017-08-10 04:55] LABS: Calcium 10.3 mg/dL (8.6-10.8)
[2017-08-10] MEDS ORDERED: Diclofenac Sodium 75 MG TABLET PO SCH (09:00)
[2017-08-10] MEDS ORDERED: amLODIPine 5 MG TABLET PO SCH (09:00)
[2017-08-10] MEDS ORDERED: Famotidine 20 MG TABLET PO SCH ×2 (09:00→21:00)
[2017-08-10] MEDS ORDERED: Cyanocobalamin (B-12) 1,000 MCG TABLET PO SCH (09:00)
[2017-08-10] MEDS: Gabapentin 400 MG CAPSULE PO SCH ×2 (10:08→12:33)
[2017-08-10 12:00] VITALS: BP 115/70
--- NOTE | 2017-08-10 12:14 | Electrocardiograph Report ---
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
--- NOTE | 2017-08-10 12:21 | Electrocardiograph Report ---
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
[2017-08-10] MEDS ORDERED: Benzonatate 100 MG CAPSULE PO PRN (12:56)
[2017-08-10] MEDS ORDERED: predniSONE 20 MG TABLET PO SCH (13:00)
--- NOTE | 2017-08-10 13:06 | Internal Med History&Physical ---
Date of Encounter: 08/10/17 Time of Encounter: 13:04 Assessment and Plan (1) Acute exacerbation of chronic obstructive airways disease Current visit: No Status: Acute Patient admitted through ED with complaints of increasing shortness of breath and flulike symptoms that began approximately 2 weeks ago. Patient currently is afebrile. Chest x-ray showed no acute infectious process. Patient continues with a persistent dry cough, which he states has been present for the past week. Patient states a history of frequent bronchitis and progressing COPD. Continues with tobacco abuse. Will continue with current bronchodilators. We will start on prednisone for possible viral bronchitis. Patient has remained afebrile with no sputum production noted during cough. We will discuss with Frankie for further recommendations (2) Diabetes Current visit: No Status: Chronic Patient is a type II diabetic who states he was diet-controlled at home. States he has taken metformin before in the past. Patient's glucose on labs was greater than 200, but patient has received a dose of large Solu-Medrol while in the emergency department. We will start on fingersticks and obtain a hemoglobin A1c. We will continue with diet-controlled management. Qualifiers: Diabetes mellitus type: type 2 Diabetes mellitus complication status: with kidney complications Diabetes mellitus complication detail: with chronic kidney disease Diabetes mellitus long term care pharmacist insulin use: without chcf use Chronic kidney disease stage: stage 3 (moderate) Qualified Code(s): E11.22 - Type 2 diabetes mellitus with diabetic chronic kidney disease; N18.3 - Chronic kidney disease, stage 3 (moderate); N18.3 - Chronic kidney disease, stage 3 (moderate) (3) Chronic kidney disease Current visit: Yes Status: Chronic Patient states long history of chronic kidney disease. Patient's creatinine on admission was 1.95 with a BUN of 35. Patient's potassium on last labs was 6.0. Patient currently on no potassium supplements. We will give a dose of Kayexalate and recheck patient's labs in the morning. Qualifiers: Chronic kidney disease stage: stage 3 (moderate) Qualified Code(s): N18.3 - Chronic kidney disease, stage 3 (moderate) Internal Medicine - H&P: HPI Chief complaint: dyspnea Admitted From: Home Plans for Post Hospital Care: Home History of present illness: Mr. Bose is a 61 year old male who was admitted to the emergency department for complaints of shortness of breath. Patient has a long history of progressing COPD and continues to smoke at home. Patient states that he has had increasing weakness and flulike symptoms over the past 2 weeks and then during the past 2 days he became increasingly short of breath. Patient states that he uses nebulizer treatments at home and has oxygen for when necessary use. Patient states that he has had a chronic cough that has persisted over the past 2 weeks, but rarely produces any sputum. Denies any fever or chills. Denies any chest discomforts. Denies nausea or vomiting. Patient has had 2 chest x-rays since his admission with both showing no acute infectious process. Patient has had serial troponins performed with both being negative. Patient is a diet-controlled diabetic home and states that his blood sugars are usually okay. Noted on admission his last glucose was 200. Patient also with hyperkalemia on last labs with potassium of 6.0 Past Med Surg Social Fam HX - Past Medical History Medical history: arthritis, asthma, COPD, diabetes, hypertension, renal disease , other Psychiatric history: anxiety, depression - Past Surgical History Surgical History: herniorrhaphy, hip replacement - Social History Smoking Status: Current every day smoker Packs per day: 1 Smokeless Tobacco Status: Yes Alcohol use: none Drug use: none - Family History Father Living Status: Hx Family Cardiac Disorders: Yes Mother Adopted: No Family Member Ethnicity: Non- Living Status: Internal Medicine - H&P: Meds Albuterol Sulfate [Proair Hfa] 1 puff IH Q4H 08/04/16 [History] Cyanocobalamin (Vitamin B-12) [Vitamin B12] 1,000 mcg PO DAILY 08/04/16 [History ] Cyclobenzaprine HCl 10 mg PO TID PRN 08/04/16 [History] Diclofenac Sodium [Voltaren] 75 mg PO BID 08/04/16 [History] Gabapentin [Neurontin] 400 mg PO QID 08/04/16 [History] Ipratropium/Albuterol Neb [Duoneb] 3 ml IH Q6HR PRN 08/04/16 [History] Lisinopril [Zestril] 5 mg PO BID 08/04/16 [History] amLODIPine [Norvasc] 5 mg PO DAILY 06/19/17 [History] Metoprolol [Lopressor] 25 mg PO BID #60 tablet 06/28/17 [Rx] Tamsulosin [Flomax] 0.4 mg PO DAILY #30 capsule 06/28/17 [Rx] 3 Allergy/AdvReac Type Severity Reaction Status Date / Time cephalexin AdvReac Rash Verified 08/09/17 21:23 clindamycin AdvReac Rash Verified 08/09/17 21:23 All Systems PM: A 10-system review of systems was performed and is negative for pertinent findings except as documented above in the HPI. - Constitutional Constitutional: as per HPI - EENT Eyes: no change in vision, no discharge, no pain, no photophobia Ears: no ear discharge, no ear pain, no tinnitus Nose, mouth and throat: no dysphagia, no nasal discharge, no neck pain, no sore throat - Cardiovascular Cardiovascular ROS IM: no chest pain, no diaphoresis, no dyspnea, no lightheadedness, no palpitations, no syncope - Respiratory Respiratory: cough, dyspnea, dyspnea on exertion - Gastrointestinal Gastrointestinal: no abdominal pain, no diarrhea, no hematemesis, no hematochezia, no melena, no nausea, no vomiting - Musculoskeletal Musculoskeletal ROS IM: no numbness, no tingling - Integumentary Integumentary IM: no rash, no unusual bruising - Neurological Neurological ROS: no confusion, no convulsions, no focal weakness, no numbness, no tingling, no tremor(s) - Constitutional Vitals: Temp Pulse Resp BP Pulse Ox 98.6 F 84 16 115/70 95 08/10/17 11:59 08/10/17 11:59 08/10/17 11:59 08/10/17 11:59 08/10/17 11:59 General appearance: Present: A&O X 3 - Head Head exam: Present: atraumatic, normocephalic - Eye Eye exam: Present: PERRL, conjuntiva pink, sclera anicteric Pupils: Present: PERRL - Neck Neck exam general surgery: Present: supple, trachea midline. Absent: lymphadenopathy - Respiratory Respiratory exam: Absent: accessory muscle use, rales, rhonchi, wheezes Additional comments: Patient's lungs were clear to alexander, but diminished throughout lower basilar alexander. Patient noted to have a frequent dry cough that was triggered during deep inspiration. No hypoxia. Respiratory effort appears relaxed while at rest. - Cardiovascular Cardiovascular exam: Present: RRR, +S1, +S2. Absent: diastolic murmur, gallop, rubs, systolic murmur - GI/Abdominal GI/Abdominal exam: Present: normal bowel sounds, soft, no peritoneal signs. Absent: distended, tenderness - Extremities Exam Extremities exam: Present: warm, radial pulses palpable and symmetrical. Absent : calf tenderness, cyanotic, pedal edema - Neurological Exam Neurological exam: Present: CN II-XII intact, oriented X3, no focal deficits. Absent: pronater drift, facial droop, speech deficit - Skin Skin exam: Present: dry, intact Internal Med - H&P Results - Labs CBC & Chem 7: 08/10/17 04:35 08/10/17 04:35 Labs: Short CBC 08/10/17 Range/Units 04:35 WBC 13.1 H (4.3-11.1) K/mcL Hgb 10.6 L (12.9-16.9) g/dL Hct 34.5 L (37.5-50.1) % Plt Count 284 (140-400) K/mcL Neutrophils # 12.3 H (1.6-8.9) K/mcL BMP 08/10/17 04:35 Sodium 139 Potassium 6.0 H Chloride 104 Carbon Dioxide 24 BUN 35 H Creatinine 1.95 H Glucose 216 H Calcium 10.3 Cardiac Enzymes 08/10/17 08/10/17 Range/Units 04:35 10:42 Troponin I 0.01 0.00 (0-0.03) ng/mL - Impressions ITS Impressions Chest X-Ray 08/10/17 00:52 IMPRESSION: 1. No acute cardiopulmonary process identified. 2. Stable findings suggesting COPD. D/ / Julio Cesar Lange MD / Julio Cesar Lange MD Interpreting Provider: Julio Cesar Lange MD
[2017-08-10 14:07] LABS: Hemoglobin A1C 5.5 %
--- NOTE | 2017-08-10 15:06 | Discharge Summary ---
Date of Encounter: 08/10/17 Time of Encounter: 15:04 - Discharge Diagnosis (1) AB (asthmatic bronchitis) Priority: Primary Status: Acute Qualifiers: Asthma severity: moderate persistent Asthma complication type: with acute exacerbation Qualified Code(s): J45.41 - Moderate persistent asthma with ( acute) exacerbation (2) Acute exacerbation of COPD with asthma Priority: Primary Status: Acute (3) Chronic kidney disease Priority: Primary Status: Chronic Qualifiers: Chronic kidney disease stage: stage 3 (moderate) Qualified Code(s): N18.3 - Chronic kidney disease, stage 3 (moderate) - Discharge Medications Home Medications: Albuterol Sulfate [Proair Hfa] 1 puff IH Q4H 08/04/16 [History] Cyanocobalamin (Vitamin B-12) [Vitamin B12] 1,000 mcg PO DAILY 08/04/16 [History ] Cyclobenzaprine HCl 10 mg PO TID PRN 08/04/16 [History] Diclofenac Sodium [Voltaren] 75 mg PO BID 08/04/16 [History] Gabapentin [Neurontin] 400 mg PO QID 08/04/16 [History] Ipratropium/Albuterol Neb [Duoneb] 3 ml IH Q6HR PRN 08/04/16 [History] Lisinopril [Zestril] 5 mg PO BID 08/04/16 [History] amLODIPine [Norvasc] 5 mg PO DAILY 06/19/17 [History] Metoprolol [Lopressor] 25 mg PO BID #60 tablet 06/28/17 [Rx] Tamsulosin [Flomax] 0.4 mg PO DAILY #30 capsule 06/28/17 [Rx] Allergies/Adverse Reactions: 3 Allergy/AdvReac Type Severity Reaction Status Date / Time cephalexin AdvReac Rash Verified 08/09/17 21:23 clindamycin AdvReac Rash Verified 08/09/17 21:23 Date of admission: 08/09/17 22:45 Primary care physician: PCP NONE Consults: 08/10/17 00:38 Consult to Nutrition [CONS] Routine Comment: Consulting Provider: NUTRITION Reason for Dietary Consult: MST Score Discharging clinician: Toribio David Anticipated date of discharge: 08/10/17 - Patient Status Disposition: Home, Self-Care Condition: Good Functional capacity at discharge: independent ambulation Overall status at discharge: patient is progressing back to baseline - Discharge Instructions Forms: ED Satisfaction Letter - Diet and Activity Activity: wear oxygen at all times Diet: advance to your usual diet Interval History: Patient presents emergency room increasing shortness of breath. Has a history of COPD has home O2 has albuterol nebulizer but continues to smoke. Hospital course: Mr. Bose is a 61 year old male Patient is much improved patient's wheezing states he feels better he is eating he has the albuterol and O2 at home on Tuesday Messi decreasing dose of prednisone and some general antibiotics. He states he has small amount of sputum but it has dried up now - Time Spent with Patient Total time spent providing and/or coordinating discharge services: Less than 30 minutes - Constitutional Vitals: Temp Pulse Resp BP Pulse Ox 98.6 F 84 16 115/70 95 08/10/17 11:59 08/10/17 11:59 08/10/17 11:59 08/10/17 11:59 08/10/17 11:59 General appearance: Present: A&O X 3 - Head Head exam: Present: atraumatic, normal inspection, normocephalic - Neck Neck exam general surgery: Present: supple, trachea midline. Absent: lymphadenopathy - Respiratory Respiratory exam: Present: CTAB. Absent: accessory muscle use, rales, rhonchi, wheezes - Cardiovascular Cardiovascular exam: Present: RRR, +S1, +S2. Absent: diastolic murmur, gallop, rubs, systolic murmur - GI/Abdominal GI/Abdominal exam: Present: normal bowel sounds, soft, no peritoneal signs. Absent: distended, tenderness
== END 2017-08-10 16:00 | disposition home or self-care (01) ==
LOC: INPGRE 21:13 → EMEROOGRE 21:13 → INPGRE 23:07
PROVIDERS: ADMIT Internal Medicine; ATTEND Internal Medicine

== ENCOUNTER 2017-09-22 20:41 | Inpatient (IN) ==
[2017-09-22] MEDS ORDERED: Ipratropium/Albuterol Neb 3 ML IH ONE ×2 (20:58→21:51)
[2017-09-22] MEDS ORDERED: Levofloxacin 750 MG/150 ML 750 MG/150 ML BAG IVPB ONE (20:58)
[2017-09-22] MEDS ORDERED: methylPREDNISolone 125 MG/2 ML VIAL IVP ONE (20:58)
--- NOTE | 2017-09-22 21:03 | Emergency Department Note ---
Disposition Clinical Impression: Acute exacerbation of chronic obstructive airways disease Disposition: Admitted As Inpatient Time of Disposition: 22:02 SOB HPI - General Chief Complaint: ED Shortness of Breath/Dyspnea Stated Complaint: Sob Time Seen by Provider: 09/22/17 20:58 Source: patient Limitations: no limitations Nursing Notes Reviewed: Yes Vital Signs Reviewed: Yes - History of Present Illness Ill for 1 week. Seen by PMD and treated with azithromycin and prednisone. Denies fever. Reports nonproductive cough. Patient is a smoker. Patient has been up and around active all day long. No problems until one hour ago he became somewhat suddenly extremely dyspneic and tachypneic with no relief with his nebulizer at home. Patient reports 2 episodes of Guillian [place] and his "immune system" is not what it should be Pt Subjective Complaint: shortness of breath, cough Onset (ago): hour(s) (1) Context: recent illness Severity: severe Consistency/Duration: constant, gradually worsening Improves with: oxygen, rest, upright position Worsens with: lying flat, exertion, coughing Known history of: COPD, congestive heart failure Associated symptoms: Reports: cough, wheezing, orthopnea, diaphoresis, sense of impending doom. Denies: fever, sputum production, lower extremity pain, polyuria, polydipsia, palpitations, hemoptysis, syncope, abdominal pain, rash Cough present: Yes Cough Description: Voluntary, Non-Productive, Dry, Hacking Cough Frequency: Intermittent Sputum production: No Sputum Amount: None - Related Data Home oxygen amount: none Home Medications Medication Instructions Recorded Confirmed Albuterol Sulfate [Proair Hfa] 1 puff IH Q4H 08/04/16 09/22/17 Cyanocobalamin (Vitamin B-12) 1,000 mcg PO DAILY 08/04/16 09/22/17 [Vitamin B12] Cyclobenzaprine HCl 10 mg PO TID PRN 08/04/16 09/22/17 Diclofenac Sodium [Voltaren] 75 mg PO BID 08/04/16 09/22/17 Gabapentin [Neurontin] 400 mg PO QID 08/04/16 09/22/17 Ipratropium/Albuterol Neb [Duoneb] 3 ml IH Q6HR PRN 08/04/16 09/22/17 Lisinopril [Zestril] 5 mg PO BID 08/04/16 09/22/17 amLODIPine [Norvasc] 5 mg PO DAILY 06/19/17 09/22/17 predniSONE [PredniSONE] 20 mg PO DAILY 09/22/17 09/22/17 Previous Rx's Medication Instructions Recorded Metoprolol [Lopressor] 25 mg PO BID #60 tablet 06/28/17 Tamsulosin [Flomax] 0.4 mg PO DAILY #30 capsule 06/28/17 Allergies Allergy/AdvReac Type Severity Reaction Status Date / Time cephalexin AdvReac Rash Verified 09/22/17 20:45 clindamycin AdvReac Rash Verified 09/22/17 20:45 All systems ED: reviewed and negative except as stated. Review of Systems: As Per HPI Respiratory: Reports: as per HPI Past Medical History - Past Medical History Medical history: Reports: arthritis, asthma, COPD, diabetes, hypertension, renal disease, other Surgical history: Reports: herniorrhaphy, hip replacement Psychiatric history: Reports: anxiety, depression - Social History Smoking Status: Current every day smoker Smokeless Tobacco Status: Yes Alcohol use: Reports: none Drug use: Reports: none Physical Exam Constitutional: Patient is oriented to person, place, and time. Skin color is pink. Appears well hydrated, body habitus obese . Appears acutely ill, acutely dyspneic, tachypneic able to speak only a few words at a time cause of his dyspnea Head: Normocephalic and atraumatic. External ear exam normal Nose: Nose normal. Mouth/Throat: Uvula is midline, oropharynx is clear and moist and mucous membranes are normal. Eyes: Conjunctivae nl, extraocular motions and lids are normal. Pupils are equal , round, and reactive to light. Neck: Normal range of motion and phonation normal. Neck supple. Cardiovascular: Rapid rate, regular rhythm, normal heart sounds. Pulmonary/Chest: No Respiratory distress. Respiratory Effort normal and breath sounds diminished. Bilaterally without merlin wheezing. Abdominal: Soft. Normal appearance and bowel sounds are normal. no tenderness, no masses, no guarding, no rebound Musculoskeletal: Good distal pulses. Soft compartments. Brisk cap refill. Extremities: Normal range of motion.Intact peripheral pulses. No Edema. Extremity skin color nl, no calf tenderness or palpable cords. Neurological: Patient is alert and oriented without evidence of obvious motor deficits Skin: Skin is warm, dry and intact. color is normal, cap refill is quick Psychiatric: Patient has normal mood and affect. Patient speech is normal and behavior is normal. Thought content normal. - General Limitations: no limitations General appearance: alert, in distress Course - Reevaluation(s) Reevaluation #1: Patient is tolerating the BiPAP reluctantly. Lab called and indicated his elevated CO2. He agreed to continue the BiPAP but reported giving him a headache, he reports chest pain, he states nervous. Fentanyl was administered. Time: 21:52 Reevaluation #2: Contact made by phone with floor who indicates Dr. Suazo is director sanitation bureau for hospitalist here at [place]. I believe patient is appropriate for admission here. Left a message on cell phone at [phone] Time: 22:04 Reevaluation #3: Discussed case with Dr. Suazo director sanitation bureau for hospitalist. He agrees to accept the patient. We discussed specifically patient's treatments including Lovenox, DuoNeb, Levaquin, Solu-Medrol, he has requested that I place orders into the chart for the patient's admission. I have graded as a courtesy to do so. Nursing indicates that we are to BiPAP machines in the hospital and sensation of the patient on BiPAP to keep the patient here. I have requested a repeat VBG at this point to determine if the patient remains acidotic and hypercapnic. pt agreeable to plan and indicates he is feeling better. Time: 22:51 Vital Signs Temperature 98.8 F 09/22/17 20:41 Pulse Rate 125 09/22/17 20:41 Respiratory Rate 32 09/22/17 20:41 Blood Pressure 155/108 09/22/17 20:41 O2 Sat by Pulse Oximetry 91 09/22/17 20:41 Temperature 98.8 F 09/22/17 20:41 Pulse Rate 111 09/22/17 21:54 Respiratory Rate 28 09/22/17 21:06 Blood Pressure 127/99 09/22/17 21:54 O2 Sat by Pulse Oximetry 99 09/22/17 21:54 Oxygen Delivery Oxygen Delivery Bipap Shortness of Breath/Dyspnea - [facility] Narrative Medical decision making narrative: Patient presents acutely uncomfortable with the rather extreme degree of dyspnea. He has had both CHF and COPD. We will evaluate for other causes as below - Differential Diagnosis Likely: acute exacerbation of chronic obstructive airways disease, congestive heart failure, pneumonia, pulmonary embolism, pneumothorax, arrhythmia - Medical Records Medical records reviewed: Yes I reviewed the patient's medical records. - Lab Data Lab results reviewed: Yes I reviewed the patient's lab results. Result diagrams: 09/22/17 20:55 09/22/17 20:55 Lab Results 09/22/17 09/22/17 09/22/17 Range/Units 20:55 20:55 20:55 WBC 12.9 H (4.3-11.1) K/mcL RBC 5.24 (4.19-5.50) M/mcL Hgb 13.0 (12.9-16.9) g/dL Hct 42.5 (37.5-50.1) % MCV 81.1 L (83.0-100.0) fL MCH 24.8 L (28.0-33.3) pg MCHC 30.6 L (31.6-35.5) g/dL RDW 14.7 H (11.5-14.5) % Plt Count 310 (140-400) K/mcL MPV 9.7 (9.4-12.4) fL Immature Gran % 1.6 (0-4) % Seg Neutrophils % 71.2 % Lymphocytes % 19.3 % Monocytes % 5.7 % Eosinophils % 1.7 % Basophils % 0.5 % Neutrophils # 9.2 H (1.6-8.9) K/mcL Lymphocytes # 2.5 (0.6-4.6) K/mcL Monocytes # 0.7 (0.0-1.3) K/mcL Eosinophils # 0.2 (0.0-0.6) K/mcL Basophils # 0.1 (0.0-0.2) K/mcL PT 12.2 H (9.4-12.1) Seconds INR 1.1 APTT 28.7 (26.0-36.0) Seconds D-Dimer 825 H (0-500) ng/mLFEU VBG pH (7.32-7.42) pH Units VBG pCO2 (41-51) mmHg VBG pO2 (25-50) mmHg VBG HCO3 (21-27) mEq/L Sodium 140 (136-145) mEq/L Potassium 4.5 (3.5-5.1) mEq/L Chloride 102 (98-107) mEq/L Carbon Dioxide 30 H (23-29) mEq/L BUN 33 H (8-23) mg/dL Creatinine 1.74 H (0.70-1.30) mg/dL Est GFR ( Amer) 48 L (> 60) Est GFR (Non-Af Amer) 40 L (> 60) BUN/Creatinine Ratio 19 (6-26) Glucose 144 H (70-105) mg/dL Calculated Osmolality 300 (280-300) Lactic Acid (0.5-2.2) mmol/L Calcium 9.9 (8.6-10.3) mg/dL Total Bilirubin 0.2 L (0.3-1.0) mg/dL Direct Bilirubin 0.0 (0.0-0.2) mg/dL Indirect Bilirubin 0.2 (0.0-1.2) mg/dL AST 14 (13-39) Units/L ALT 20 (7-52) Units/L Alkaline Phosphatase 91 (34-104) Units/L Troponin I (< 0.04) ng/mL B-Natriuretic Peptide (Less than 100) pg/mL Serum Total Protein 7.4 (6.4-8.9) g/dL Albumin 4.4 (3.5-5.7) g/dL Globulin 3.0 (2.4-3.5) g/dL Albumin/Globulin Ratio 1.5 (1.1-2.2) 09/22/17 09/22/17 09/22/17 Range/Units 20:55 20:55 20:55 WBC (4.3-11.1) K/mcL RBC (4.19-5.50) M/mcL Hgb (12.9-16.9) g/dL Hct (37.5-50.1) % MCV (83.0-100.0) fL MCH (28.0-33.3) pg MCHC (31.6-35.5) g/dL RDW (11.5-14.5) % Plt Count (140-400) K/mcL MPV (9.4-12.4) fL Immature Gran % (0-4) % Seg Neutrophils % % Lymphocytes % % Monocytes % % Eosinophils % % Basophils % % Neutrophils # (1.6-8.9) K/mcL Lymphocytes # (0.6-4.6) K/mcL Monocytes # (0.0-1.3) K/mcL Eosinophils # (0.0-0.6) K/mcL Basophils # (0.0-0.2) K/mcL PT (9.4-12.1) Seconds INR APTT (26.0-36.0) Seconds D-Dimer (0-500) ng/mLFEU VBG pH (7.32-7.42) pH Units VBG pCO2 (41-51) mmHg VBG pO2 (25-50) mmHg VBG HCO3 (21-27) mEq/L Sodium (136-145) mEq/L Potassium (3.5-5.1) mEq/L Chloride (98-107) mEq/L Carbon Dioxide (23-29) mEq/L BUN (8-23) mg/dL Creatinine (0.70-1.30) mg/dL Est GFR ( Amer) (> 60) Est GFR (Non-Af Amer) (> 60) BUN/Creatinine Ratio (6-26) Glucose (70-105) mg/dL Calculated Osmolality (280-300) Lactic Acid 1.4 (0.5-2.2) mmol/L Calcium (8.6-10.3) mg/dL Total Bilirubin (0.3-1.0) mg/dL Direct Bilirubin (0.0-0.2) mg/dL Indirect Bilirubin (0.0-1.2) mg/dL AST (13-39) Units/L ALT (7-52) Units/L Alkaline Phosphatase (34-104) Units/L Troponin I < 0.03 (< 0.04) ng/mL B-Natriuretic Peptide 10 (Less than 100) pg/mL Serum Total Protein (6.4-8.9) g/dL Albumin (3.5-5.7) g/dL Globulin (2.4-3.5) g/dL Albumin/Globulin Ratio (1.1-2.2) 09/22/17 Range/Units 21:31 WBC (4.3-11.1) K/mcL RBC (4.19-5.50) M/mcL Hgb (12.9-16.9) g/dL Hct (37.5-50.1) % MCV (83.0-100.0) fL MCH (28.0-33.3) pg MCHC (31.6-35.5) g/dL RDW (11.5-14.5) % Plt Count (140-400) K/mcL MPV (9.4-12.4) fL Immature Gran % (0-4) % Seg Neutrophils % % Lymphocytes % % Monocytes % % Eosinophils % % Basophils % % Neutrophils # (1.6-8.9) K/mcL Lymphocytes # (0.6-4.6) K/mcL Monocytes # (0.0-1.3) K/mcL Eosinophils # (0.0-0.6) K/mcL Basophils # (0.0-0.2) K/mcL PT (9.4-12.1) Seconds INR APTT (26.0-36.0) Seconds D-Dimer (0-500) ng/mLFEU VBG pH 7.26 L (7.32-7.42) pH Units VBG pCO2 70 H* (41-51) mmHg VBG pO2 33 (25-50) mmHg VBG HCO3 31 H (21-27) mEq/L Sodium (136-145) mEq/L Potassium (3.5-5.1) mEq/L Chloride (98-107) mEq/L Carbon Dioxide (23-29) mEq/L BUN (8-23) mg/dL Creatinine (0.70-1.30) mg/dL Est GFR ( Amer) (> 60) Est GFR (Non-Af Amer) (> 60) BUN/Creatinine Ratio (6-26) Glucose (70-105) mg/dL Calculated Osmolality (280-300) Lactic Acid (0.5-2.2) mmol/L Calcium (8.6-10.3) mg/dL Total Bilirubin (0.3-1.0) mg/dL Direct Bilirubin (0.0-0.2) mg/dL Indirect Bilirubin (0.0-1.2) mg/dL AST (13-39) Units/L ALT (7-52) Units/L Alkaline Phosphatase (34-104) Units/L Troponin I (< 0.04) ng/mL B-Natriuretic Peptide (Less than 100) pg/mL Serum Total Protein (6.4-8.9) g/dL Albumin (3.5-5.7) g/dL Globulin (2.4-3.5) g/dL Albumin/Globulin Ratio (1.1-2.2) - Radiology Data Radiology results reviewed: Yes I reviewed the patient's radiology results. no acute process - EKG Data EKG attestation: Yes I reviewed and interpreted this EKG. EKG results narrative: Sinus tachycardia with no evidence of acute ischemia. Compared to previous EKG 08/10/17 reveals similar EKG shows normal: Reports: sinus rhythm Rate: Reports: tachycardia [place]/QRS: Reports: normal Interpretation: Reports: other (repeat ECG at 2200 for chest pain and EKG reveals sinus tachycardia but no evidence of changes from the first or any acute EKG changes)
[2017-09-22 21:24] LABS: Basophils # 0.1 K/mcL (0.0-0.2); Basophils % 0.5 %; Eosinophils # 0.2 K/mcL (0.0-0.6); Eosinophils % 1.7 %; Hematocrit 42.5 % (37.5-50.1); Immature Granulocytes % 1.6 % (0-4); Lymphocytes # 2.5 K/mcL (0.6-4.6); Lymphocytes % 19.3 %; Mean Corpuscular HGB Conc 30.6 g/dL (31.6-35.5); Mean Corpuscular Hemoglobin 24.8 pg (28.0-33.3); Mean Corpuscular Volume 81.1 fL (83.0-100.0); Mean Platelet Volume 9.7 fL (9.4-12.4); Monocytes # 0.7 K/mcL (0.0-1.3); Monocytes % 5.7 %; Neutrophils # 9.2 K/mcL (1.6-8.9); Platelet Count 310 K/mcL (140-400); Red Blood Count 5.24 M/mcL (4.19-5.50); Red Cell Distribution Width 14.7 % (11.5-14.5); Segmented Neutrophils % 71.2 %
[2017-09-22 21:33] LABS: INR 1.1; Prothrombin Time 12.2 Seconds (9.4-12.1)
[2017-09-22] MEDS ORDERED: *HR* FentaNYL (PF) 100 MCG/2 ML VIAL IVP ONE (21:33)
[2017-09-22 21:35] LABS: VBG HCO3 31 mEq/L (21-27); VBG PH 7.26 pH Units (7.32-7.42); VBG PO2 33 mmHg (25-50)
[2017-09-22 21:36] LABS: Activated Partial Thrombo Time 28.7 Seconds (26.0-36.0)
[2017-09-22 21:40] LABS: Albumin 4.4 g/dL (3.5-5.7); Albumin/Globulin Ratio 1.5 (1.1-2.2); Bilirubin,Indirect 0.2 mg/dL (0.0-1.2); Bilirubin,Total 0.2 mg/dL (0.3-1.0); Calcium 9.9 mg/dL (8.6-10.3); Potassium 4.5 mEq/L (3.5-5.1); Total Protein 7.4 g/dL (6.4-8.9)
[2017-09-22 22:42] LABS: VBG PCO2 70 mmHg (41-51)
[2017-09-22 23:15] LABS: VBG HCO3 24 mEq/L (21-27); VBG PCO2 42 mmHg (41-51); VBG PH 7.37 pH Units (7.32-7.42); VBG PO2 58 mmHg (25-50)
[2017-09-22] MEDS ORDERED: Acetaminophen 325 MG TABLET PO PRN (23:31)
[2017-09-22] MEDS ORDERED: 0.9 % Sodium Chloride 1,000 ML IVC SCH (23:31)
[2017-09-22] MEDS ORDERED: Naloxone 0.4 MG/ML INJ IVP PRN (23:31)
[2017-09-23] MEDS: Ipratropium/Albuterol Neb 3 ML IH SCH ×3 (00:19→08:34)
[2017-09-23] MEDS ORDERED: *HR* Enoxaparin 40 MG/0.4 ML SYRINGE SQ SCH (06:00)
[2017-09-23] MEDS ORDERED: MethylPREDNISolone 40 MG/ML VIAL IVP SCH (06:00)
[2017-09-23 06:48] LABS: Albumin 4.1 g/dL (3.5-5.7); Albumin/Globulin Ratio 1.5 (1.1-2.2); Bilirubin,Total 0.3 mg/dL (0.3-1.0); Calcium 9.9 mg/dL (8.6-10.3); Globulin 2.7 g/dL (2.4-3.5); Magnesium 1.9 mg/dL (1.6-2.6); Potassium 5.5 mEq/L (3.5-5.1); Total Protein 6.8 g/dL (6.4-8.9)
[2017-09-23 06:51] LABS: Basophils % 0.3 %; Hematocrit 38.8 % (37.5-50.1); Hemoglobin 11.9 g/dL (12.9-16.9); Immature Granulocytes % 1.7 % (0-4); Lymphocytes # 0.8 K/mcL (0.6-4.6); Lymphocytes % 7.2 %; Mean Corpuscular HGB Conc 30.7 g/dL (31.6-35.5); Mean Corpuscular Hemoglobin 24.6 pg (28.0-33.3); Mean Corpuscular Volume 80.2 fL (83.0-100.0); Mean Platelet Volume 9.9 fL (9.4-12.4); Monocytes # 0.1 K/mcL (0.0-1.3); Monocytes % 0.6 %; Neutrophils # 9.4 K/mcL (1.6-8.9); Platelet Count 246 K/mcL (140-400); Red Blood Count 4.84 M/mcL (4.19-5.50); Red Cell Distribution Width 14.6 % (11.5-14.5); Segmented Neutrophils % 90.2 %
[2017-09-23 08:03] VITALS: BP 126/70
[2017-09-23] MEDS ORDERED: Gabapentin 400 MG CAPSULE PO SCH (09:00)
[2017-09-23] MEDS ORDERED: Cyanocobalamin (B-12) 1,000 MCG TABLET PO SCH (09:00)
[2017-09-23] MEDS ORDERED: amLODIPine 5 MG TABLET PO SCH (09:00)
--- NOTE | 2017-09-23 11:36 | Internal Med History&Physical ---
Date of Encounter: 09/23/17 Time of Encounter: 10:50 Assessment and Plan (1) Acute exacerbation of COPD with asthma Current visit: No Status: Acute He has markedly improved overnight. Because of his recent azithromycin and his "diminished immune system," we will place him on 1 week of Levaquin, 4 days of 40 mg of prednisone, and ask him to follow with his PCP in 7-10 days. (2) Hyperkalemia Current visit: No Status: Acute Apparently, this has been present in the past. A repeat potassium was ordered. We will ask that he modify his diet and get potassium rechecked with his PCP at an early visit, see above. (3) Diabetes Current visit: No Status: Chronic Will continue current regimen. Qualifiers: Diabetes mellitus type: type 2 Diabetes mellitus complication status: with kidney complications Diabetes mellitus complication detail: with chronic kidney disease Diabetes mellitus intermediate insulin use: without intermediate use Chronic kidney disease stage: stage 3 (moderate) Qualified Code(s): E11.22 - Type 2 diabetes mellitus with diabetic chronic kidney disease; N18.3 - Chronic kidney disease, stage 3 (moderate); N18.3 - Chronic kidney disease, stage 3 (moderate) (4) Hypertension Current visit: No Status: Acute Clinically stable at present. We will continue current regimen although he may need to have his lisinopril discontinued and another medication used, given his hyperkalemia. Qualifiers: Hypertension type: essential hypertension Qualified Code(s): I10 - Essential (primary) hypertension (5) Tobacco abuse Current visit: No Status: Acute He has been smoking 5-6 cigarettes per day and states that he will absolutely quit after this episode. I encouraged him to follow through with this and advised that this is a "warning sign." (6) Chronic kidney disease Current visit: No Status: Chronic This is stable versus his baseline, apparently, with associated hyperkalemia. Will defer management to his primary care physician. Qualifiers: Chronic kidney disease stage: stage 3 (moderate) Qualified Code(s): N18.3 - Chronic kidney disease, stage 3 (moderate) Internal Medicine - H&P: HPI Chief complaint: Dyspnea Admitted From: Home Plans for Post Hospital Care: Home History of present illness: Mr. Bose is a 61 year old male who has long-standing COPD, cardiomegaly, class I heart failure, prostatism. He was in his usual state of health until he developed bronchitis symptoms, about a week ago. His had been sick with pneumonia and grandchildren sick with flu. He has oxygen at home which he uses on an as-needed basis. He recently was treated with azithromycin and 20 mg daily of prednisone. Today was to be his last dose of prednisone and he completed his azithromycin a day or so ago. When he has shortness of breath, he will typically wear this at 2 L and he has home blood pressure monitor (which was normal yesterday) and oximeter that really did not desaturate. Overnight, he was on BiPAP for about 3 hours and this reversed his CO2 retention, his dyspnea, hypoxia, and other symptoms. He is feeling normal now. He feels comfortable on 2 L of oxygen as well as off oxygen. His O2 saturation on room air is now 99%. He is a chronic smoker and admits to attempts to wean himself. However, he is still smoking 6-7 cigarettes per day but states that he will definitely quit after this exacerbation. I strongly encouraged him to do so. He noted progressive dyspnea, especially yesterday. He presented to the ED with worsening shortness of breath. He did not have significant increase in cough or sputum production, change in sputum character, hemoptysis, fevers, chills, sweats. He did have some lightheadedness, on occasion. No fever, as far as he knows. He denies orthopnea, change in ankle edema, does admit to some chest pressure but related to breathing, only. It was not exertional. Review of systems is remarkable for a ventral hernia with an enlarged umbilical complement which is been present for some time. He occasionally has discomfort there but no symptoms consistent with incarceration, obstruction, etc. He is edentulous. He gives a history of 2 episodes of Frank ray which sounds credible based on his details. 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 The second episode was not as prolonged but left him with persistent peripheral neuropathy and diminished proprioception which led to frequent lightheadedness or dizziness. 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 Past Med Surg Social Fam HX - Past Medical History Medical history: arthritis, asthma, CHF, COPD, hypertension, renal disease, other Psychiatric history: anxiety, depression - Past Surgical History Surgical History: herniorrhaphy, hip replacement, other - Social History Smoking Status: Current every day smoker Packs per day: 1/2 Smokeless Tobacco Status: Yes Alcohol use: none Drug use: none - Family History Father Living Status: Hx Family Cardiac Disorders: Yes Mother Adopted: No Family Member Ethnicity: Non- Living Status: Internal Medicine - H&P: Meds Cyanocobalamin (Vitamin B-12) [Vitamin B12] 500 mcg PO DAILY 08/04/16 [History] Cyclobenzaprine HCl 10 mg PO TID PRN 08/04/16 [History] Diclofenac Sodium [Voltaren] 75 mg PO BID 08/04/16 [History] Gabapentin [Neurontin] 400 mg PO QID 08/04/16 [History] Ipratropium/Albuterol Neb [Duoneb] 3 ml IH Q6HR PRN 08/04/16 [History] Lisinopril [Zestril] 5 mg PO BID 08/04/16 [History] amLODIPine [Norvasc] 5 mg PO DAILY 06/19/17 [History] Metoprolol [Lopressor] 25 mg PO BID #60 tablet 06/28/17 [Rx] Tamsulosin [Flomax] 0.4 mg PO DAILY #30 capsule 06/28/17 [Rx] Cholecalciferol (Vitamin D3) [Vitamin D] 1,000 unit PO 09/22/17 [History] predniSONE [PredniSONE] 20 mg PO DAILY 09/22/17 [History] 3 Allergy/AdvReac Type Severity Reaction Status Date / Time cephalexin AdvReac Rash Verified 09/22/17 20:45 clindamycin AdvReac Rash Verified 09/22/17 20:45 All Systems PM: A 10-system review of systems was performed and is negative for pertinent findings except as documented above in the HPI. - Constitutional Vitals: Temp Pulse Resp BP Pulse Ox 98.6 F 83 18 126/70 96 09/23/17 08:00 09/23/17 08:00 09/23/17 08:00 09/23/17 08:00 09/23/17 09:38 General appearance: Present: cooperative, A&O X 3, no acute distress, answers questions appropriately - Head Head exam: Present: atraumatic, normal inspection, normocephalic - Neck Neck exam general surgery: Present: full ROM, trachea midline. Absent: lymphadenopathy, tenderness, nuchal rigidity, thyromegaly Additional comments: Carotids are 2+ bilaterally without bruit. - Respiratory Respiratory exam: Present: rales. Absent: accessory muscle use Additional comments: Rales which are dry, at right base only. Otherwise, no wheezing or rhonchi, no signs of consolidation, no abnormalities to indicate diminished airflow. - Cardiovascular Cardiovascular exam: Present: RRR, +S1, +S2. Absent: systolic murmur - GI/Abdominal GI/Abdominal exam: Present: normal bowel sounds, soft. Absent: hepatomegaly, mass, splenomegaly, tenderness Additional comments: Has a ventral hernia with an umbilical component as described in history. He has an umbilical hernia that is approximately 6 cm in circumference and both hernias are easily reducible, nontender. He has no abdominal or femoral bruits. Obese and therefore difficult to palpate deeply. - Extremities Exam Extremities exam: Present: normal capillary refill. Absent: calf tenderness, pedal edema Additional comments: He has discoloration of the lower calves and near the ankles consistent with chronic venous stasis changes. - Back Exam Back exam: Absent: CVA tenderness (L), CVA tenderness (R) - Skin Skin exam: Absent: cyanosis, excoriation, petechiae, rash, urticaria Internal Med - H&P Results - Labs CBC & Chem 7: 09/23/17 06:10 09/23/17 06:15 Labs: Short CBC 09/23/17 Range/Units 06:10 WBC 10.5 (4.3-11.1) K/mcL Hgb 11.9 L (12.9-16.9) g/dL Hct 38.8 (37.5-50.1) % Plt Count 246 (140-400) K/mcL Neutrophils # 9.4 H (1.6-8.9) K/mcL BMP 09/23/17 09/23/17 06:10 06:15 Sodium 137 Potassium 5.5 H 5.6 H Chloride 104 Carbon Dioxide 27 BUN 33 H Creatinine 1.61 H Glucose 174 H Calcium 9.9 Liver Function 09/23/17 Range/Units 06:10 Total Bilirubin 0.3 (0.3-1.0) mg/dL AST 11 L (13-39) Units/L ALT 21 (7-52) Units/L Alkaline Phosphatase 77 (34-104) Units/L Albumin 4.1 (3.5-5.7) g/dL
--- NOTE | 2017-09-23 12:02 | Discharge Summary ---
- NOTES TO OUTPATIENT PROVIDER Notes to Outpatient Provider: Consider discontinuation of lisinopril given marginal hyperkalemia. 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 insulin use: without snf use Chronic kidney disease stage: stage 3 (moderate) Qualified Code(s): E11.22 - Type 2 diabetes mellitus with diabetic chronic kidney disease; N18.3 - Chronic kidney disease, stage 3 (moderate); N18.3 - Chronic kidney disease, stage 3 (moderate) (4) Hypertension Priority: Secondary Status: Acute Qualifiers: Hypertension type: essential hypertension Qualified Code(s): I10 - Essential (primary) hypertension (5) Tobacco abuse Priority: Secondary Status: Acute (6) Chronic kidney disease Priority: Secondary Status: Chronic Qualifiers: Chronic kidney disease stage: stage 3 (moderate) Qualified Code(s): N18.3 - Chronic kidney disease, stage 3 (moderate) Hospital course: Mr. Bose is a 61 year old male with acute shortness of breath. He was admitted and treated with IV steroids and received only 1 dose of Levaquin. He was placed on BiPAP for about 3 hours and improved markedly. He is currently feeling like he is at his baseline and is ready to go home. He had an elevated potassium. He is to follow-up with his primary care within a week to 10 days. Suggestion is made to consider discontinuation of lisinopril. See history of present illness on H&P this date. - Time Spent with Patient Total time spent providing and/or coordinating discharge services: - Discharge Medications Prescriptions: levoFLOXacin [Levaquin] 500 mg PO DAILY 7 Days #7 tablet predniSONE [PredniSONE] 40 mg PO DAILY 4 Days #4 tablet Home Medications: Cyanocobalamin (Vitamin B-12) [Vitamin B12] 500 mcg PO DAILY 08/04/16 [History] Cyclobenzaprine HCl 10 mg PO TID PRN 08/04/16 [History] Diclofenac Sodium [Voltaren] 75 mg PO BID 08/04/16 [History] Gabapentin [Neurontin] 400 mg PO QID 08/04/16 [History] Ipratropium/Albuterol Neb [Duoneb] 3 ml IH Q6HR PRN 08/04/16 [History] Lisinopril [Zestril] 5 mg PO BID 08/04/16 [History] amLODIPine [Norvasc] 5 mg PO DAILY 06/19/17 [History] Metoprolol [Lopressor] 25 mg PO BID #60 tablet 06/28/17 [Rx] Tamsulosin [Flomax] 0.4 mg PO DAILY #30 capsule 06/28/17 [Rx] Cholecalciferol (Vitamin D3) [Vitamin D] 1,000 unit PO 09/22/17 [History] PredniSONE 40 mg 09/23/17 [History] levoFLOXacin [Levaquin] 500 mg PO DAILY 7 Days #7 tablet 09/23/17 [Rx] predniSONE [PredniSONE] 40 mg PO DAILY 4 Days #4 tablet 09/23/17 [Rx] Allergies/Adverse Reactions: 3 Allergy/AdvReac Type Severity Reaction Status Date / Time cephalexin AdvReac Rash Verified 09/22/17 20:45 clindamycin AdvReac Rash Verified 09/22/17 20:45 Date of admission: 09/22/17 23:52 Primary care physician: PCP NONE - Constitutional Vitals: Temp Pulse Resp BP Pulse Ox 98.6 F 83 18 126/70 96 09/23/17 08:00 09/23/17 08:00 09/23/17 08:00 09/23/17 08:00 09/23/17 09:38 General appearance: Present: cooperative, A&O X 3, no acute distress, answers questions appropriately Exam: See history and physical this date. - Patient Status Disposition: Home, Self-Care Condition: Good Overall status at discharge: patient is back to baseline - Discharge Instructions Follow Up With: Irena White NIGHT SHIFT SUPERVISOR [Advanced Practice Nurse] - - Diet and Activity Activity: resume usual activities as tolerated Diet: advance to your usual diet
--- NOTE | 2017-09-23 18:09 | Electrocardiograph Report ---
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
--- NOTE | 2017-09-23 18:17 | Electrocardiograph Report ---
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
[2017-09-23] MEDS ORDERED: Levofloxacin 500 MG/100 ML 500 MG/100 ML BAG IVPB SCH (21:00)
== END 2017-09-23 12:50 | disposition home or self-care (01) | DRG 191 ==
LOC: EMEROOGRE 20:41 → INPGRE 20:41

== ENCOUNTER 2017-10-21 19:41 | Observation (INO) ==
--- NOTE | 2017-10-21 20:09 | Emergency Department Note ---
Disposition Clinical Impression: COPD (chronic obstructive pulmonary disease), Dehydration Disposition: Admitted As Inpatient Reasons to Return/Additional Instructions: Your blood pressure was slightly elevated tonight so please follow-up to primary care Dr when discharged from the hospital Referrals: Irena White CNP [Primary Care Provider] - SOB HPI - General Stated Complaint: difficulty breathing Time Seen by Provider: 10/21/17 19:50 Source: patient Mode of arrival: ambulatory Limitations: no limitations Nursing Notes Reviewed: Yes Vital Signs Reviewed: Yes - History of Present Illness Patient presents complaining of shortness of breath. He says his been feeling coming on all day. His history of COPD and was in the emergency department a week ago was placed on steroids and antibiotics and be doing fine up until today. He denies any chest pain belly pain diarrhea or other complaints other than cough and shortness of breath. Has not had a fever that he is aware of Pt Subjective Complaint: shortness of breath, cough Onset (ago): day(s) (1) Context: recent illness Severity: moderate Consistency/Duration: constant Improves with: nothing Worsens with: nothing Known history of: COPD Associated symptoms: Reports: cough, wheezing. Denies: chest pain, fever - Related Data Home Medications Medication Instructions Recorded Confirmed Cyanocobalamin (Vitamin B-12) 500 mcg PO DAILY 08/04/16 10/14/17 [Vitamin B12] Cyclobenzaprine HCl 10 mg PO TID PRN 08/04/16 10/14/17 Diclofenac Sodium [Voltaren] 75 mg PO BID 08/04/16 10/14/17 Gabapentin [Neurontin] 400 mg PO QID 08/04/16 10/14/17 Ipratropium/Albuterol Neb [Duoneb] 3 ml IH Q6HR PRN 08/04/16 10/14/17 Lisinopril [Zestril] 5 mg PO BID 08/04/16 10/14/17 amLODIPine [Norvasc] 5 mg PO DAILY 06/19/17 10/14/17 Cholecalciferol (Vitamin D3) 1,000 unit PO DAILY 09/22/17 10/15/17 [Vitamin D] Azithromycin [Zithromax] 250 mg PO DAILY 10/15/17 10/15/17 Previous Rx's Medication Instructions Recorded Metoprolol [Lopressor] 25 mg PO BID #60 tablet 06/28/17 Tamsulosin [Flomax] 0.4 mg PO DAILY #30 capsule 06/28/17 predniSONE [PredniSONE] 40 mg PO DAILY 4 Days #4 tablet 09/23/17 Doxycycline 100 mg PO BID #13 capsule 10/15/17 Fluticasone/Salmeterol [Advair 1 each IH BID #1 blst.w.dev 10/15/17 500-50 Diskus] Ipratropium [Atrovent Inhaler] 2 puff IH Q6HR #1 hfa.aer.ad 10/15/17 PredniSONE [Deltasone] 40 mg PO DAILY #8 tablet 10/15/17 Allergies Allergy/AdvReac Type Severity Reaction Status Date / Time cephalexin AdvReac Rash Verified 09/22/17 20:45 clindamycin AdvReac Rash Verified 09/22/17 20:45 All systems ED: reviewed and negative except as stated. Review of Systems: As Per HPI Constitutional: Denies: fever, chills, weakness, weight change Eyes: Denies: eye pain, eye discharge, vision change ENT ED: Reports: as per HPI Cardiovascular: Denies: chest pain, palpitations, dyspnea on exertion, edema, syncope Respiratory: Reports: as per HPI, cough, dyspnea, wheezes. Denies: hemoptysis, stridor Gastrointestinal: Denies: abdominal pain, nausea, vomiting, diarrhea, constipation, hematemesis, melena, hematochezia Genitourinary: Denies: urgency, dysuria, frequency, hematuria Musculoskeletal: Denies: back pain, neck pain, arthralgia, myalgia Integumentary: Denies: rash, abrasion, lesions Neurological: Denies: headache, weakness, numbness, paresthesias, confusion, abnormal gait, vertigo Psychiatric: Denies: anxiety, depression, suicidal thoughts, homicidal thoughts , auditory hallucinations, visual hallucinations Endocrine: Denies: fatigue Hematological/Lymphatic: Denies: easy bleeding, easy bruising Allergic/Immunologic: Denies: facial swelling, urticaria Past Medical History - Past Medical History Attestation: Yes The following information was validated with the patient. Source: patient Medical history: Reports: arthritis, asthma, CHF, COPD, hypertension, renal disease, other Surgical history: Reports: herniorrhaphy, hip replacement, other Psychiatric history: Reports: anxiety, depression - Social History Smoking Status: Current every day smoker Smokeless Tobacco Status: Yes Alcohol use: Reports: none Drug use: Reports: none Physical Exam - General Limitations: no limitations General appearance: alert, in no apparent distress - Head Head exam: atraumatic, normocephalic, normal inspection - Eye Eye exam: Present: normal appearance, PERRL, EOMI - ENT ENT exam: normal exam - Neck Neck exam: Present: normal inspection, full ROM, trachea midline - Chest Chest inspection: Present: normal inspection, symmetric chest wall rise - Respiratory Respiratory exam: Present: respiratory distress (mild), prolonged expiratory phase. Absent: accessory muscle use - Cardiovascular Cardiovascular exam: Present: normal rhythm, tachycardia - Abdominal Exam Abdominal exam: Present: soft, Non-Tender, normal bowel sounds - Extremities Exam Extremities exam: Present: normal inspection - Back Exam Back exam: Present: normal inspection - Neurological Exam Neurological exam: Present: alert, oriented X3 - Psychiatric Psychiatric exam: Present: normal affect, normal mood - Skin Skin exam: Present: warm, dry, intact Shortness of Breath/Dyspnea - MDM Narrative Medical decision making narrative: Case was discussed with Dr. Vaz the hospitalist who accepts admission to hospital - Lab Data Lab results reviewed: Yes I reviewed the patient's lab results. - Radiology Data Radiology results reviewed: Yes I reviewed the patient's radiology results. - EKG Data EKG attestation: Yes I reviewed and interpreted this EKG. EKG results narrative: EKG shows a sinus tachycardia with a rate of 123 bpm RI interval 146 ms QRS duration 84 ms QT interval 271 ms QTC 344 ms R axis of 66 degrees
[2017-10-21] MEDS ORDERED: Ipratropium/Albuterol Neb 3 ML IH ONE (20:10)
[2017-10-21] MEDS ORDERED: methylPREDNISolone 125 MG/2 ML VIAL IVP ONE (20:10)
[2017-10-21] MEDS ORDERED: 0.9 % Sodium Chloride 1,000 ML IVC SCH (20:15)
[2017-10-21 20:32] LABS: Basophils # 0.1 K/mcL (0.0-0.2); Basophils % 0.7 %; Eosinophils # 0.3 K/mcL (0.0-0.6); Eosinophils % 1.7 %; Hematocrit 41.6 % (37.5-50.1); Hemoglobin 12.8 g/dL (12.9-16.9); Immature Granulocytes % 4.2 % (0-4); Lymphocytes # 2.4 K/mcL (0.6-4.6); Lymphocytes % 13.8 %; Mean Corpuscular HGB Conc 30.8 g/dL (31.6-35.5); Mean Corpuscular Hemoglobin 24.5 pg (28.0-33.3); Mean Corpuscular Volume 79.7 fL (83.0-100.0); Mean Platelet Volume 9.6 fL (9.4-12.4); Monocytes # 1.2 K/mcL (0.0-1.3); Monocytes % 6.6 %; Neutrophils # 12.9 K/mcL (1.6-8.9); Platelet Count 307 K/mcL (140-400); Red Blood Count 5.22 M/mcL (4.19-5.50); Red Cell Distribution Width 16.3 % (11.5-14.5)
[2017-10-21 20:47] LABS: BUN/Creatinine Ratio 30 (6-26); Blood Urea Nitrogen 51 mg/dL (8-23); Calcium 10.3 mg/dL (8.6-10.3); Carbon Dioxide 27 mEq/L (23-29); Chloride 101 mEq/L (98-107); Glucose 160 mg/dL (70-105); Osmolality,Calculated 303 (280-300); Sodium 138 mEq/L (136-145); eGFR For African Americans 50 (> 60); eGFR For Non-African Americans 41 (> 60)
[2017-10-21 20:48] LABS: Troponin I < 0.03 ng/mL (< 0.04)
[2017-10-21] MEDS ORDERED: Levofloxacin 500 MG/100 ML 500 MG/100 ML BAG IVPB ONE (22:40)
[2017-10-21] MEDS ORDERED: Naloxone 0.4 MG/ML INJ IVP PRN (22:40)
[2017-10-21] MEDS: 0.9 % Sodium Chloride 1,000 ML IVC SCH (23:05)
[2017-10-21] MEDS: Gabapentin 400 MG CAPSULE PO SCH (23:09)
[2017-10-21] MEDS: Diclofenac Sodium 75 MG TABLET PO SCH (23:09)
[2017-10-22] MEDS ORDERED: Ipratropium/Albuterol Neb 3 ML IH SCH
[2017-10-22] MEDS: Ipratropium/Albuterol Neb 3 ML IH SCH ×6 (00:12→21:19)
[2017-10-22 05:55] LABS: Basophils # 0.1 K/mcL (0.0-0.2); Basophils % 0.4 %; Eosinophils % 0.1 %; Hematocrit 37.5 % (37.5-50.1); Hemoglobin 11.5 g/dL (12.9-16.9); Immature Granulocytes % 4.6 % (0-4); Lymphocytes # 0.9 K/mcL (0.6-4.6); Lymphocytes % 6.2 %; Mean Corpuscular HGB Conc 30.7 g/dL (31.6-35.5); Mean Corpuscular Hemoglobin 24.4 pg (28.0-33.3); Mean Corpuscular Volume 79.4 fL (83.0-100.0); Mean Platelet Volume 9.8 fL (9.4-12.4); Monocytes # 0.1 K/mcL (0.0-1.3); Monocytes % 0.8 %; Neutrophils # 12.7 K/mcL (1.6-8.9); Platelet Count 254 K/mcL (140-400); Red Blood Count 4.72 M/mcL (4.19-5.50); Segmented Neutrophils % 87.9 %
[2017-10-22 06:11] LABS: Calcium 9.6 mg/dL (8.6-10.3); Potassium 5.5 mEq/L (3.5-5.1)
[2017-10-22] MEDS ORDERED: Furosemide 20 MG/2 ML VIAL IVP ONE (10:27)
--- NOTE | 2017-10-22 10:32 | Internal Med History&Physical ---
Date of Encounter: 10/22/17 Time of Encounter: 10:28 Assessment and Plan (1) Acute exacerbation of COPD with asthma Current visit: No Status: Acute pt gets Hypoxic on minimal exertion , Duo neb ,IV antibiotics and steroid . Supportive treatment and ambulation . Need to assess oxygen needs on exertion. BNP ordered to assess elements of heart failure , clinically he seems to be fluid overload .One dose of Lasix and followup labs tomorrow . (2) Diabetes Current visit: No Status: Chronic sliding scale and further adjustments as needed Qualifiers: Diabetes mellitus type: type 2 Diabetes mellitus regulatory affairs intern insulin use: without regulatory affairs intern use Diabetes mellitus complication status: with kidney complications Diabetes mellitus complication detail: with chronic kidney disease Chronic kidney disease stage: stage 3 (moderate) Qualified Code(s): E11.22 - Type 2 diabetes mellitus with diabetic chronic kidney disease; N18.3 - Chronic kidney disease, stage 3 (moderate); N18.3 - Chronic kidney disease, stage 3 (moderate) (3) Hypertension Current visit: No Status: Chronic stable continue to adjust meds Qualifiers: Hypertension type: essential hypertension Qualified Code(s): I10 - Essential (primary) hypertension (4) Renal insufficiency Current visit: Yes Status: Acute cause not known at the present time . Will followup .This could be due to many reasons including fluid retention however at the present it seems more like rerenal . . Internal Medicine - H&P: HPI Chief complaint: SOB on exertion Admitted From: Home History of present illness: Mr. Bose is a 61 year old male with recent discharge from hospital where he was admitted for COPD exacerbation .he came back to ED with increase in SOB . He denies any chest , PND orthopnea .Most of the time his SOB is on exertion . No complains of nausea vomiting or diarrhea no fever or chills . Cough is minimal . He complains of soarness in his throat no difficulty in swallowing ,or dysphagia / Past Med Surg Social Fam HX - Past Medical History Medical history: arthritis, asthma, CHF, COPD, hypertension, renal disease, other Psychiatric history: anxiety, depression - Past Surgical History Surgical History: herniorrhaphy, hip replacement, other - Social History Smoking Status: Current every day smoker Smokeless Tobacco Status: Yes Alcohol use: none Drug use: none - Family History Father Adopted: [place]: Joan Bose Family Member Ethnicity: Non- Living Status: Age at : 85 Cause of : IA Hx Family Cardiac Disorders: Yes Hx Family Respiratory Disorders: Yes Hx Family Cancer: Yes Hx Family GI Disorders: No Hx Family Genitourinary Disorders: No Hx Family Endocrine Disorder: Yes Hx Family Musculoskeletal Disorders: No Hx Family Neuromuscular Disorders: No Hx Family Neurologic Disorders: No Hx Family HEENT Disorders: No Hx Family Autoimmune Disorders: No Hx Family Reproductive Disorders: No Hx Family Psychosocial Disorders: No Hx Family Medical Disorders: No Mother Adopted: [place]: Homa Bose Family Member Ethnicity: Non- Living Status: Age at : 59 Cause of : cancer Hx Family Cardiac Disorders: Yes Hx Family Respiratory Disorders: Yes Hx Family Cancer: Yes Hx Family GI Disorders: No Hx Family Genitourinary Disorders: No Hx Family Endocrine Disorder: Yes Hx Family Musculoskeletal Disorders: No Hx Family Neuromuscular Disorders: No Hx Family Neurologic Disorders: No Hx Family HEENT Disorders: No Hx Family Autoimmune Disorders: No Hx Family Reproductive Disorders: No Hx Family Psychosocial Disorders: No Hx Family Medical Disorders: No Internal Medicine - H&P: Meds Cyanocobalamin (Vitamin B-12) [Vitamin B12] 500 mcg PO DAILY 08/04/16 [History] Cyclobenzaprine HCl 10 mg PO TID PRN 08/04/16 [History] Diclofenac Sodium [Voltaren] 75 mg PO BID 08/04/16 [History] Gabapentin [Neurontin] 400 mg PO TID 08/04/16 [History] Ipratropium/Albuterol Neb [Duoneb] 3 ml IH Q6HR PRN 08/04/16 [History] Lisinopril [Zestril] 5 mg PO BID 08/04/16 [History] amLODIPine [Norvasc] 5 mg PO DAILY 06/19/17 [History] Metoprolol [Lopressor] 25 mg PO BID #60 tablet 06/28/17 [Rx] Tamsulosin [Flomax] 0.4 mg PO DAILY #30 capsule 06/28/17 [Rx] Cholecalciferol (Vitamin D3) [Vitamin D] 1,000 unit PO DAILY 09/22/17 [History] Fluticasone/Salmeterol [Advair 500-50 Diskus] 1 each IH BID #1 blst.w.dev [Rx] Ipratropium [Atrovent Inhaler] 2 puff IH Q6HR #1 hfa.aer.ad 10/15/17 [Rx] 3 Allergy/AdvReac Type Severity Reaction Status Date / Time cephalexin AdvReac Rash Verified 09/22/17 20:45 clindamycin AdvReac Rash Verified 09/22/17 20:45 All Systems PM: A 10-system review of systems was performed and is negative for pertinent findings except as documented above in the HPI. - Constitutional Constitutional: fatigue, lethargy, no anorexia, no chills, no excessive sweating , no fever(s), no falls, no night sweats, no weakness, no weight gain - EENT Eyes: no blurry vision, no diplopia, no discharge, no floaters, no loss of peripheral vision, no photophobia Ears: no decreased hearing Nose, mouth and throat: dry mouth, sore throat, no bleeding gums, no dysphagia, no epistaxis, no facial pain, no hoarseness, no nasal discharge, no odynophagia , no tongue swelling - Cardiovascular Cardiovascular ROS IM: dyspnea, dyspnea on exertion, edema, orthopnea, no chest pain, no claudication, no diaphoresis, no lightheadedness, no palpitations, no paroxysmal nocturnal dyspnea, no syncope - Respiratory Respiratory: cough, dyspnea, dyspnea on exertion, wheezing, chest congestion, no hemoptysis, no stridor, no pain on inspiration - Gastrointestinal Gastrointestinal: no belching, no bloating, no constipation, no diarrhea, no dyspepsia, no dysphagia, no heartburn, no hematemesis, no hematochezia - Genitourinary Genitourinary ROS male: no difficulty urinating, no flank pain, no hematuria, no nocturia, no penile discharge - Neurological Neurological ROS: no confusion, no convulsions, no disequilibrium, no lack of coordination, no loss of vision, no memory loss, no numbness - Psychiatric Psychiatric: no anxiety, no depression, no homicidal ideation, no hopelessness - Constitutional Vitals: Temp Pulse Resp BP Pulse Ox 97.6 F 91 18 109/69 94 10/22/17 07:12 10/22/17 07:12 10/22/17 07:12 10/22/17 07:12 10/22/17 07:12 General appearance: Present: A&O X 3, pleasant, obese. Absent: mild distress - Eye Eye exam: Present: EOMI, normal appearance, PERRL. Absent: scleral icterus, conjuntiva pink - ENT ENT exam: Present: mucous membranes dry Additional comments: whitish spots noted on left oropharynx - Neck Neck exam general surgery: Present: supple. Absent: tenderness, nuchal rigidity - Respiratory Respiratory exam: Present: decreased breath sounds, prolonged expiratory phase, rhonchi, wheezes. Absent: chest wall tenderness Additional comments: few basal crackles and prolonged expiration - Cardiovascular Cardiovascular exam: Present: RRR, +S1, +S2, systolic murmur - GI/Abdominal GI/Abdominal exam: Present: normal bowel sounds, soft. Absent: distended, firm , guarding, rebound, rigid - Extremities Exam Extremities exam: Present: pedal edema Additional comments: has pitting edema both legs more on the left no calf tenderness - Neurological Exam Neurological exam: Present: alert, CN II-XII intact, oriented X3, no focal deficits, strengths equal and symetr throughout. Absent: facial droop, speech deficit Internal Med - H&P Results - Labs CBC & Chem 7: 10/22/17 05:45 10/22/17 05:45 Labs: Short CBC 10/22/17 Range/Units 05:45 WBC 14.4 H (4.3-11.1) K/mcL Hgb 11.5 L (12.9-16.9) g/dL Hct 37.5 (37.5-50.1) % Plt Count 254 (140-400) K/mcL Neutrophils # 12.7 H (1.6-8.9) K/mcL BMP 10/22/17 05:45 Sodium 133 L Potassium 5.5 H Chloride 102 Carbon Dioxide 25 BUN 52 H Creatinine 1.60 H Glucose 274 H Calcium 9.6 - Impressions ITS Impressions Chest X-Ray 10/22/17 06:00 IMPRESSION: Patchy left basilar opacity suggestive of atelectasis. Continued follow-up is suggested as a developing left lower lobe pneumonia could have this appearance. D/ : / 10/22/2017 09:51:21 Julio Cesar Lange MD / [email or web address] Interpreting Provider: Julio Cesar Lange MD
[2017-10-22] MEDS ORDERED: D5% in Water 1,000 ML IVC PRN (10:42)
[2017-10-22] MEDS ORDERED: *HR* Dextrose 50 % in Water (Syg) 50 ML SYRINGE IVP PRN (10:42)
[2017-10-22] MEDS ORDERED: Dextrose Gel 15 GM PO PRN ×2 (10:42)
[2017-10-22] MEDS: Gabapentin 400 MG CAPSULE PO SCH ×4 (10:44→21:18)
[2017-10-22] MEDS: Cyanocobalamin (B-12) 1,000 MCG TABLET PO SCH (10:44)
[2017-10-22] MEDS: amLODIPine 5 MG TABLET PO SCH (10:44)
[2017-10-22] MEDS: Diclofenac Sodium 75 MG TABLET PO SCH ×2 (10:44→21:19)
[2017-10-22] MEDS: Cholecalciferol (D-3) 1,000 UNIT TABLET PO SCH (10:44)
[2017-10-22] MEDS: Insulin LISPRO 300 UNITS/3 ML VIAL SQ SCH ×4 (10:56→22:55)
[2017-10-22] MEDS: Levofloxacin 500 MG/100 ML 500 MG/100 ML BAG IVPB SCH (21:17)
[2017-10-22] MEDS: Nystatin SUSP 5 ML UD.LIQ PO SCH (21:19)
[2017-10-23] MEDS: Ipratropium/Albuterol Neb 3 ML IH SCH ×6 (01:11→21:18)
[2017-10-23 05:24] LABS: Basophils # 0.1 K/mcL (0.0-0.2); Basophils % 0.3 %; Eosinophils # 0.1 K/mcL (0.0-0.6); Eosinophils % 0.4 %; Hematocrit 37.8 % (37.5-50.1); Hemoglobin 11.7 g/dL (12.9-16.9); Immature Granulocytes % 2.8 % (0-4); Lymphocytes # 2.3 K/mcL (0.6-4.6); Lymphocytes % 13.8 %; Mean Corpuscular Hemoglobin 24.7 pg (28.0-33.3); Mean Corpuscular Volume 79.7 fL (83.0-100.0); Mean Platelet Volume 9.7 fL (9.4-12.4); Monocytes % 5.9 %; Neutrophils # 12.9 K/mcL (1.6-8.9); Platelet Count 249 K/mcL (140-400); Red Blood Count 4.74 M/mcL (4.19-5.50); Red Cell Distribution Width 16.5 % (11.5-14.5); Segmented Neutrophils % 76.8 %
[2017-10-23] MEDS: *HR* Enoxaparin 40 MG/0.4 ML SYRINGE SQ SCH (05:30)
[2017-10-23 05:45] LABS: Calcium 9.8 mg/dL (8.6-10.3); Potassium 4.9 mEq/L (3.5-5.1)
[2017-10-23] MEDS: 0.9 % Sodium Chloride 1,000 ML IVC SCH (07:47)
[2017-10-23] MEDS: Cyanocobalamin (B-12) 1,000 MCG TABLET PO SCH (09:23)
[2017-10-23] MEDS: Diclofenac Sodium 75 MG TABLET PO SCH (09:23)
[2017-10-23] MEDS: amLODIPine 5 MG TABLET PO SCH (09:23)
[2017-10-23] MEDS: Gabapentin 400 MG CAPSULE PO SCH ×4 (09:23→21:18)
[2017-10-23] MEDS: predniSONE 20 MG TABLET PO SCH (09:23)
[2017-10-23] MEDS: Nystatin SUSP 5 ML UD.LIQ PO SCH ×4 (09:23→21:18)
[2017-10-23] MEDS: Cholecalciferol (D-3) 1,000 UNIT TABLET PO SCH (09:23)
[2017-10-23] MEDS: Insulin LISPRO 300 UNITS/3 ML VIAL SQ SCH ×4 (09:27→21:20)
--- NOTE | 2017-10-23 10:15 | Internal Med Progress Note ---
Date of Encounter: 10/23/17 Time of Encounter: 10:13 - Assessment and plan (1) Acute exacerbation of COPD with asthma Current Visit: No Status: Acute Assessment and plan: increase in WBC most likely due to steroid afebrile. His breathing and examination has improved however he still is hypoxic when he walks. he is also interested to go home Advised to stay another day a followup xray for tomorrow and then he could go home if he feels back to his normal self and once his oxygen needs which might be prn only have been fully assessed. He BNP is 10 element of Heart failure has been ruled out . 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 Diabetes mellitus complication status: with kidney complications Diabetes mellitus complication detail: with chronic kidney disease Chronic kidney disease stage: stage 3 (moderate) Qualified Code(s): E11.22 - Type 2 diabetes mellitus with diabetic chronic kidney disease; N18.3 - Chronic kidney disease, stage 3 (moderate); N18.3 - Chronic kidney disease, stage 3 (moderate) (3) Hypertension Current Visit: No Status: Chronic Assessment and plan: stable no new change Qualifiers: Hypertension type: essential hypertension Qualified Code(s): I10 - Essential (primary) hypertension (4) Renal insufficiency Current Visit: Yes Status: Acute Assessment and plan: Improving . - Subjective Interval history: Seen as followup he seems to be doing much better and feels that his breasting has improved he is getting less SOB however still get hypoxic . making urine . felt better after getting one Lasix no fever or chill - Constitutional Vitals: Temp Pulse Resp BP Pulse Ox 97.7 F 81 18 122/75 93 10/23/17 07:55 10/23/17 07:55 10/23/17 07:55 10/23/17 07:55 10/23/17 07:55 General appearance: Present: A&O X 3, pleasant, obese. Absent: mild distress - Head Head exam: Present: atraumatic - Eye Eye exam: Present: EOMI, PERRL. Absent: scleral icterus, conjuntiva pink - Neck Neck exam general surgery: Present: supple. Absent: tenderness, nuchal rigidity - Respiratory Respiratory exam: Present: CTAB. Absent: respiratory distress, rhonchi, stridor , wheezes, tachypnea Additional comments: essentially clear chest today no prolong expiatory wheeze - Cardiovascular Cardiovascular exam: Present: +S1, +S2. Absent: irregular rhythm, JVD - GI/Abdominal GI/Abdominal exam: Present: normal bowel sounds, soft. Absent: firm, guarding, rebound, rigid - Extremities Exam Extremities exam: Present: pedal edema. Absent: tenderness Additional comments: improved from last night - Neurological Exam Neurological exam: Present: alert, CN II-XII intact, oriented X3, reflexes normal, no focal deficits, strengths equal and symetr throughout. Absent: facial droop, speech deficit Internal Medicine: Result - Labs CBC & Chem 7: 10/23/17 04:20 10/23/17 04:20 Labs: Short CBC 10/23/17 Range/Units 04:20 WBC 16.8 H (4.3-11.1) K/mcL Hgb 11.7 L (12.9-16.9) g/dL Hct 37.8 (37.5-50.1) % Plt Count 249 (140-400) K/mcL Neutrophils # 12.9 H (1.6-8.9) K/mcL BMP 10/23/17 04:20 Sodium 134 L Potassium 4.9 Chloride 102 Carbon Dioxide 26 BUN 49 H Creatinine 1.48 H Glucose 190 H Calcium 9.8 - Impressions Impressions Chest X-Ray 10/22/17 06:00 IMPRESSION: Patchy left basilar opacity suggestive of atelectasis. Continued follow-up is suggested as a developing left lower lobe pneumonia could have this appearance. D/ / 10/22/2017 09:51:21 Julio Cesar Lange MD / [facility] Interpreting Provider: Julio Cesar Lange MD Consult Discharge Plan - Plan
[2017-10-23] MEDS: Levofloxacin 500 MG/100 ML 500 MG/100 ML BAG IVPB SCH (21:19)
[2017-10-24] MEDS: Ipratropium/Albuterol Neb 3 ML IH SCH ×3 (01:14→09:32)
[2017-10-24] MEDS: *HR* Enoxaparin 40 MG/0.4 ML SYRINGE SQ SCH (05:12)
[2017-10-24 07:13] VITALS: BP 113/80
[2017-10-24] MEDS: Insulin LISPRO 300 UNITS/3 ML VIAL SQ SCH (08:11)
[2017-10-24] MEDS: Nystatin SUSP 5 ML UD.LIQ PO SCH (09:32)
[2017-10-24] MEDS: amLODIPine 5 MG TABLET PO SCH (09:32)
[2017-10-24] MEDS: Cholecalciferol (D-3) 1,000 UNIT TABLET PO SCH (09:33)
[2017-10-24] MEDS: Cyanocobalamin (B-12) 1,000 MCG TABLET PO SCH (09:33)
[2017-10-24] MEDS: Gabapentin 400 MG CAPSULE PO SCH (09:33)
[2017-10-24] MEDS: predniSONE 20 MG TABLET PO SCH (09:37)
--- NOTE | 2017-10-24 11:26 | Discharge Summary ---
- NOTES TO OUTPATIENT PROVIDER Notes to Outpatient Provider: Patient is being provided with one week of Levaquin because he had failed response to Vibramycin and azithromycin, successively. Date of Encounter: 10/24/17 Time of Encounter: 11:26 - Discharge Diagnosis (1) Acute exacerbation of chronic obstructive airways disease Priority: Primary Status: Acute (2) Renal insufficiency Priority: Secondary Status: Acute Comments: Clinically and by laboratory, stable. (3) Diabetes Priority: Secondary Status: Chronic Qualifiers: Diabetes mellitus type: type 2 Diabetes mellitus fdc insulin use: without fdc use Diabetes mellitus complication status: with kidney complications Diabetes mellitus complication detail: with chronic kidney disease Chronic kidney disease stage: stage 3 (moderate) Qualified Code(s): E11.22 - Type 2 diabetes mellitus with diabetic chronic kidney disease; N18.3 - Chronic kidney disease, stage 3 (moderate); N18.3 - Chronic kidney disease, stage 3 (moderate) (4) Hypertension Priority: Secondary Status: Chronic Comments: Clinically stable. Qualifiers: Hypertension type: essential hypertension Qualified Code(s): I10 - Essential (primary) hypertension Hospital course: Mr. Bose is a 61 year old male who was treated as an outpatient with Vibramycin for 7 days followed by azithromycin for 7 days and still had productive cough and dyspnea on exertion. He returned to the emergency department and was thus admitted to to an observation bed be treated with IV steroids and IV levofloxacin. His oxygenation and symptoms improved and he was converted to oral medications. On the day of discharge he notes much less cough, decreased sputum production, minimal dyspnea on exertion compared to his admission. No acute changes or complaints. Patient has no complaint of chest discomfort, dyspnea, orthopnea, palpitations, nausea or vomiting, constipation or diarrhea, other changes in bowel habits, difficulty with urination, rash or itching, or other new complaints, except as mentioned above. Review of systems is otherwise unremarkable. He is discharged to outpatient follow-up, will be given a steroid taper of prednisone 40 mg daily for 5 days followed by 20 mg daily for 5 days followed by 10 mg until follow-up with his primary care physician. He will be given 7 days of levofloxacin. He also asks for a prescription for his DuoNeb nebulized treatments and for his albuterol MDI rescue inhaler. We will comply. - Time Spent with Patient Total time spent providing and/or coordinating discharge services: - Discharge Medications Home Medications: Cyanocobalamin (Vitamin B-12) [Vitamin B12] 500 mcg PO DAILY 08/04/16 [History] Cyclobenzaprine HCl 10 mg PO TID PRN 08/04/16 [History] Gabapentin [Neurontin] 400 mg PO TID 08/04/16 [History] Ipratropium/Albuterol Neb [Duoneb] 3 ml IH Q6HR PRN 08/04/16 [History] Lisinopril [Zestril] 5 mg PO BID 08/04/16 [History] amLODIPine [Norvasc] 5 mg PO DAILY 06/19/17 [History] Metoprolol [Lopressor] 25 mg PO BID #60 tablet 06/28/17 [Rx] Tamsulosin [Flomax] 0.4 mg PO DAILY #30 capsule 06/28/17 [Rx] Cholecalciferol (Vitamin D3) [Vitamin D] 1,000 unit PO DAILY 09/22/17 [History] Fluticasone/Salmeterol [Advair 500-50 Diskus] 1 each IH BID #1 blst.w.dev [Rx] Ipratropium [Atrovent Inhaler] 2 puff IH Q6HR #1 hfa.aer.ad 10/15/17 [Rx] Allergies/Adverse Reactions: 3 Allergy/AdvReac Type Severity Reaction Status Date / Time cephalexin AdvReac Rash Verified 09/22/17 20:45 clindamycin AdvReac Rash Verified 09/22/17 20:45 Date of admission: 10/21/17 22:37 Primary care physician: Irena White CNP Discharging clinician: Niels Napoles Anticipated date of discharge: 10/24/17 - Constitutional Vitals: Temp Pulse Resp BP Pulse Ox 97.8 F 85 18 113/80 93 10/24/17 07:12 10/24/17 07:12 10/24/17 07:12 10/24/17 07:12 10/24/17 07:12 General appearance: Present: A&O X 3, pleasant, obese. Absent: mild distress Exam: Examinatioin: (Except as mentioned above): General: In no apparent distress. Alert and oriented 3. Nondiaphoretic. Head: Atraumatic and normocephalic. Respiratory: No use of accessory muscles. He has sonorous rhonchi, throughout. Airflow seems quite good. Cardiovascular: Regular rate and rhythm without murmur appreciated. Abdomen: Bowel sounds are normal. No hepatosplenomegaly mass or tenderness appreciated. Obese and therefore difficult to palpate deeply. Extremities: No cyanosis clubbing or edema. However, he does have chronic venous stasis changes without evidence of cellulitis. Skin: Warm and non-diaphoretic with no new lesions noted. - Patient Status Disposition: Home, Self-Care Condition: Good Overall status at discharge: patient is progressing back to baseline - Discharge Instructions Follow Up With: Irena White CNP [Primary Care Provider] - Forms: ED Satisfaction Letter
--- NOTE | 2017-10-25 06:46 | Electrocardiograph Report ---
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
== END 2017-10-24 12:55 | disposition home or self-care (01) ==
LOC: INPGRE 19:41 → EMEROOGRE 19:41 → INPGRE 22:35

== ENCOUNTER 2019-02-05 11:27 | Observation (INO) ==
[2019-02-05] MEDS ORDERED: Ipratropium/Albuterol Neb 3 ML ONE ×2 (11:31→11:32)
[2019-02-05] MEDS ORDERED: Ipratropium/Albuterol Neb 3 ML IH ONE (11:32)
[2019-02-05] MEDS ORDERED: levoFLOXacin 750 MG/150 ML 750 MG/150 ML BAG IVPB ONE (11:32)
--- NOTE | 2019-02-05 11:38 | Emergency Department Note ---
Disposition Clinical Impression: COPD (chronic obstructive pulmonary disease), UTI (urinary tract infection) Disposition: Admitted As Inpatient Condition: Fair Forms: ED Satisfaction Letter Time of Disposition: 12:44 SOB HPI - General Chief Complaint: ED Shortness of Breath/Dyspnea Stated Complaint: difficulty breathing Time Seen by Provider: 02/05/19 11:31 Source: patient Mode of arrival: ambulatory Limitations: no limitations Nursing Notes Reviewed: Yes Vital Signs Reviewed: Yes - History of Present Illness 63-year-old male who was at his doctor's appointment for follow-up today who was sent in because he was having respiratory distress in the office. Patient stat es he got worse after he sat out on the front porch and was out in the heat over the course the weekend. As result he had increasing shortness of breath despite having air-conditioning and a dehumidifier in the house he is just progressively worsened to the point where he now presents here to the ER. He denies diarrhea melena hematochezia hematemesis he denies numbness tingling weakness denies any syncope denies any rashes lesions denies any blurred vision double vision loss vision since have been reviewed and are otherwise negative. Pt Subjective Complaint: shortness of breath Onset (ago): day(s) Context: recent illness, other (COPD history) Severity: severe Consistency/Duration: constant, gradually worsening Improves with: oxygen, bronchodilators Worsens with: exertion, movement, coughing Known history of: COPD - Related Data Home Medications Medication Instructions Recorded Confirmed Cyclobenzaprine HCl 10 mg PO TID PRN 08/04/16 01/18/19 Gabapentin [Neurontin] 400 mg PO QID 08/04/16 01/18/19 Ipratropium/Albuterol Neb [Duoneb] 3 ml IH Q4H PRN 08/04/16 01/18/19 Acetaminophen [Tylenol] 650 mg PO Q6HR PRN 01/07/19 01/18/19 Albuterol Sulfate [Ventolin Hfa] 2 puff IH Q6H PRN 01/07/19 01/18/19 Losartan Potassium [Cozaar] 50 mg PO DAILY 01/07/19 01/18/19 glipiZIDE [Glipizide] 10 mg PO BID 01/09/19 01/18/19 predniSONE [PredniSONE] 40 mg PO DAILY 01/18/19 01/18/19 Previous Rx's Medication Instructions Recorded Tamsulosin [Flomax] 0.4 mg PO DAILY #30 capsule 06/28/17 Budesonide/Formoterol 160/4.5 2 puff IH BIDR 30 Days #2 inh 01/12/19 [Symbicort 160/4.5] ALPRAZolam [Xanax 1 MG Tablet] 1 mg PO BID PRN 30 Days #60 tablet 01/16/19 Losartan Potassium 50 mg PO DAILY #30 tablet 01/19/19 Allergies Allergy/AdvReac Type Severity Reaction Status Date / Time cephalexin AdvReac Rash Verified 01/18/19 21:23 clindamycin AdvReac Rash Verified 01/18/19 21:23 All systems ED: reviewed and negative except as stated. Review of Systems: As Per HPI Constitutional: Denies: fever, chills, weakness Eyes: Denies: eye pain, eye discharge ENT ED: Denies: ear pain, throat pain Cardiovascular: Reports: dyspnea on exertion. Denies: chest pain, palpitations Respiratory: Reports: cough, dyspnea, wheezes Gastrointestinal: Denies: abdominal pain, nausea, vomiting Genitourinary: Denies: urgency, dysuria, frequency Musculoskeletal: Denies: back pain, neck pain Integumentary: Denies: rash, abrasion Neurological: Denies: headache Psychiatric: Denies: anxiety Endocrine: Denies: fatigue Hematological/Lymphatic: Denies: easy bleeding Allergic/Immunologic: Denies: facial swelling Past Medical History - Past Medical History Source: patient, old records reviewed, nursing notes reviewed Medical history: Reports: arthritis, asthma, CHF, COPD, diabetes, hypertension Surgical history: Reports: other Psychiatric history: Reports: anxiety, depression - Social History Smoking Status: Former smoker Smokeless Tobacco Status: Yes Alcohol use: Reports: none Drug use: Reports: none Physical Exam - General Limitations: no limitations General appearance: alert, in distress - Head Head exam: atraumatic, normocephalic, normal inspection - Eye Eye exam: Present: normal appearance, PERRL, EOMI - ENT ENT exam: normal exam, normal oropharynx, mucous membranes moist, TM's normal bilaterally, normal external ear exam - Neck Neck exam: Present: normal inspection, full ROM, trachea midline - Chest Chest inspection: Present: normal inspection, symmetric chest wall rise - Respiratory Respiratory exam: Present: wheezes, prolonged expiratory phase. Absent: accessory muscle use - Cardiovascular Cardiovascular exam: Present: regular rate, normal rhythm, normal heart sounds - Abdominal Exam Abdominal exam: Present: soft, Non-Tender, distention, normal bowel sounds. Absent: mass, pulsatile mass - Expanded Upper Extremity Exam Shoulder exam: Present: normal inspection, full ROM Arm exam: Present: normal inspection, full ROM Elbow exam: Present: normal inspection, full ROM Forearm/Wrist exam: Present: normal inspection, full ROM Hand exam: Present: normal inspection, full ROM Vascular exam: Normal: capillary refill, radial pulse - Expanded Lower Extremity Exam Hip/Pelvis exam: Present: normal inspection, full ROM Upper leg exam: Present: normal inspection, full ROM Knee exam: Present: normal inspection, full ROM Lower leg exam: Present: normal inspection, full ROM Ankle exam: Present: normal inspection, full ROM Foot/toe exam: Present: normal inspection, full ROM Neurovascular/Tendon exam: Present: normal capillary refill, normal fine/light touch. Absent: motor deficit, sensory deficit, tendon deficit Gait: observed and normal - Back Exam Back exam: Present: normal inspection, full ROM. Absent: muscle spasm - Neurological Exam Neurological exam: Present: alert, oriented X3, CN II-XII intact, normal gait - Psychiatric Psychiatric exam: Present: normal affect, normal mood - Skin Skin exam: Present: warm, dry, intact, normal color - Other Other exam information: Patient does appear ill but does not appear to be toxic in appearance Course Course Narrative: Patient was seen and examined patient was given a DuoNeb treatment patient was breathing a little bit easier the patient still is dyspneic it appears to be a COPD exacerbation from reviewing of the chest x-ray does not appear to be other congestive heart failure remaining of labs appear to be within normal he does have an underlying UTI which we will go ahead and start him on antibiotic which will help both with his COPD exacerbation because of his recurrent some thick yellow-green phlegm that he is bringing up with though the chest x-ray shows no pneumonia and his cup the underlying UTI he did not meet criteria for sepsis but his lactic acid was within normal as result patient did not receive fluid resuscitation because his blood pressure was stable and also the lactic was normal we will continue to monitor patient admitted services of Dr. Napoles at [facility] Vital Signs Temperature 99.0 F 02/05/19 11:30 Pulse Rate 101 02/05/19 11:30 Respiratory Rate 28 02/05/19 11:30 Blood Pressure 140/80 02/05/19 11:30 O2 Sat by Pulse Oximetry 96 02/05/19 11:30 Temperature 99.0 F 02/05/19 11:30 Pulse Rate 106 02/05/19 12:28 Respiratory Rate 20 02/05/19 12:28 Blood Pressure 134/87 02/05/19 12:28 O2 Sat by Pulse Oximetry 95 02/05/19 12:28 Oxygen Delivery Oxygen Delivery Room Air Shortness of Breath/Dyspnea - Differential Diagnosis Likely: acute exacerbation of chronic obstructive airways disease, pneumonia - Medical Records Medical records reviewed: Yes I reviewed the patient's medical records. - Lab Data Lab results reviewed: Yes I reviewed the patient's lab results. Result diagrams: 02/05/19 12:00 02/05/19 12:00 Lab Results 02/05/19 02/05/19 02/05/19 Range/Units 12:00 12:00 12:00 WBC 8.6 (4.3-11.1) K/mcL RBC 4.88 (4.19-5.50) M/mcL Hgb 12.4 L (12.9-16.9) g/dL Hct 41.0 (37.5-50.1) % MCV 84.0 (83.0-100.0) fL MCH 25.4 L (28.0-33.3) pg MCHC 30.2 L (31.6-35.5) g/dL RDW 18.9 H (11.5-14.5) % Plt Count 150 (140-400) K/mcL MPV 9.1 L (9.4-12.4) fL Immature Gran % 4.2 H (0-4) % Seg Neutrophils % 66.4 % Lymphocytes % 15.8 % Monocytes % 7.1 % Eosinophils % 5.8 % Basophils % 0.7 % Neutrophils # 5.7 (1.6-8.9) K/mcL Lymphocytes # 1.4 (0.6-4.6) K/mcL Monocytes # 0.6 (0.0-1.3) K/mcL Eosinophils # 0.5 (0.0-0.6) K/mcL Basophils # 0.1 (0.0-0.2) K/mcL Nucleated RBCs/100 WBC 0.2 H (0) /100 WBC PT (9.4-12.1) Seconds INR APTT (26.0-36.0) Seconds Sodium (136-145) mEq/L Potassium (3.5-5.1) mEq/L Chloride (98-107) mEq/L Carbon Dioxide (23-29) mEq/L BUN (8-23) mg/dL Creatinine (0.70-1.30) mg/dL Est GFR ( Amer) (> 60) Est GFR (Non-Af Amer) (> 60) BUN/Creatinine Ratio (6-26) Glucose (70-105) mg/dL Calculated Osmolality (280-300) Lactic Acid (0.5-2.2) mmol/L Calcium (8.6-10.3) mg/dL Phosphorus (2.7-4.5) mg/dL Magnesium (1.6-2.6) mg/dL Total Bilirubin (0.3-1.0) mg/dL AST (13-39) Units/L ALT (7-52) Units/L Alkaline Phosphatase (34-104) Units/L Troponin I < 0.03 (< 0.04) ng/mL B-Natriuretic Peptide (Less than 100) pg/mL Serum Total Protein (6.4-8.9) g/dL Albumin (3.5-5.7) g/dL Globulin (2.4-3.5) g/dL Albumin/Globulin Ratio (1.1-2.2) Urine Color Yellow (Yellow) Urine Clarity Clear (Clear) Urine pH 6.0 (5.0-8.0) pH Units Ur Specific [place] 1.010 (1.010-1.025) Urine Protein Negative (Neg-Trace) mg/dL Urine Glucose (UA) 100 H (Normal) mg/dL Urine Ketones Negative (Negative) mg/dL Urine Blood Negative (Negative) Urine Nitrite Positive A (Negative) Urine Bilirubin Negative (Negative) Urine Urobilinogen Normal (Normal) mg/dL Ur Leukocyte Esterase Trace H (Negative) Urine Microscopic WBC 0-3 (0-3) per hpf Ur Squamous Epith Cells Few (None-Few) per lpf Urine Bacteria Few (None-Few) per hpf Ur Culture Indicated? YES A (NO) 02/05/19 02/05/19 02/05/19 Range/Units 12:00 12:00 12:00 WBC (4.3-11.1) K/mcL RBC (4.19-5.50) M/mcL Hgb (12.9-16.9) g/dL Hct (37.5-50.1) % MCV (83.0-100.0) fL MCH (28.0-33.3) pg MCHC (31.6-35.5) g/dL RDW (11.5-14.5) % Plt Count (140-400) K/mcL MPV (9.4-12.4) fL Immature Gran % (0-4) % Seg Neutrophils % % Lymphocytes % % Monocytes % % Eosinophils % % Basophils % % Neutrophils # (1.6-8.9) K/mcL Lymphocytes # (0.6-4.6) K/mcL Monocytes # (0.0-1.3) K/mcL Eosinophils # (0.0-0.6) K/mcL Basophils # (0.0-0.2) K/mcL Nucleated RBCs/100 WBC (0) /100 WBC PT 12.0 (9.4-12.1) Seconds INR 1.1 APTT 30.1 (26.0-36.0) Seconds Sodium 135 L (136-145) mEq/L Potassium 4.8 (3.5-5.1) mEq/L Chloride 101 (98-107) mEq/L Carbon Dioxide 30 H (23-29) mEq/L BUN 33 H (8-23) mg/dL Creatinine 1.02 (0.70-1.30) mg/dL Est GFR ( Amer) > 60 (> 60) Est GFR (Non-Af Amer) > 60 (> 60) BUN/Creatinine Ratio 32 H (6-26) Glucose 163 H (70-105) mg/dL Calculated Osmolality 291 (280-300) Lactic Acid 1.1 (0.5-2.2) mmol/L Calcium 9.3 (8.6-10.3) mg/dL Phosphorus 2.7 (2.7-4.5) mg/dL Magnesium 2.1 (1.6-2.6) mg/dL Total Bilirubin 0.4 (0.3-1.0) mg/dL AST 12 L (13-39) Units/L ALT 33 (7-52) Units/L Alkaline Phosphatase 83 (34-104) Units/L Troponin I (< 0.04) ng/mL B-Natriuretic Peptide (Less than 100) pg/mL Serum Total Protein 6.2 L (6.4-8.9) g/dL Albumin 3.8 (3.5-5.7) g/dL Globulin 2.4 (2.4-3.5) g/dL Albumin/Globulin Ratio 1.6 (1.1-2.2) Urine Color (Yellow) Urine Clarity (Clear) Urine pH (5.0-8.0) pH Units Ur Specific [place] (1.010-1.025) Urine Protein (Neg-Trace) mg/dL Urine Glucose (UA) (Normal) mg/dL Urine Ketones (Negative) mg/dL Urine Blood (Negative) Urine Nitrite (Negative) Urine Bilirubin (Negative) Urine Urobilinogen (Normal) mg/dL Ur Leukocyte Esterase (Negative) Urine Microscopic WBC (0-3) per hpf Ur Squamous Epith Cells (None-Few) per lpf Urine Bacteria (None-Few) per hpf Ur Culture Indicated? (NO) 02/05/19 Range/Units 12:00 WBC (4.3-11.1) K/mcL RBC (4.19-5.50) M/mcL Hgb (12.9-16.9) g/dL Hct (37.5-50.1) % MCV (83.0-100.0) fL MCH (28.0-33.3) pg MCHC (31.6-35.5) g/dL RDW (11.5-14.5) % Plt Count (140-400) K/mcL MPV (9.4-12.4) fL Immature Gran % (0-4) % Seg Neutrophils % % Lymphocytes % % Monocytes % % Eosinophils % % Basophils % % Neutrophils # (1.6-8.9) K/mcL Lymphocytes # (0.6-4.6) K/mcL Monocytes # (0.0-1.3) K/mcL Eosinophils # (0.0-0.6) K/mcL Basophils # (0.0-0.2) K/mcL Nucleated RBCs/100 WBC (0) /100 WBC PT (9.4-12.1) Seconds INR APTT (26.0-36.0) Seconds Sodium (136-145) mEq/L Potassium (3.5-5.1) mEq/L Chloride (98-107) mEq/L Carbon Dioxide (23-29) mEq/L BUN (8-23) mg/dL Creatinine (0.70-1.30) mg/dL Est GFR ( Amer) (> 60) Est GFR (Non-Af Amer) (> 60) BUN/Creatinine Ratio (6-26) Glucose (70-105) mg/dL Calculated Osmolality (280-300) Lactic Acid (0.5-2.2) mmol/L Calcium (8.6-10.3) mg/dL Phosphorus (2.7-4.5) mg/dL Magnesium (1.6-2.6) mg/dL Total Bilirubin (0.3-1.0) mg/dL AST (13-39) Units/L ALT (7-52) Units/L Alkaline Phosphatase (34-104) Units/L Troponin I (< 0.04) ng/mL B-Natriuretic Peptide 13 (Less than 100) pg/mL Serum Total Protein (6.4-8.9) g/dL Albumin (3.5-5.7) g/dL Globulin (2.4-3.5) g/dL Albumin/Globulin Ratio (1.1-2.2) Urine Color (Yellow) Urine Clarity (Clear) Urine pH (5.0-8.0) pH Units Ur Specific [place] (1.010-1.025) Urine Protein (Neg-Trace) mg/dL Urine Glucose (UA) (Normal) mg/dL Urine Ketones (Negative) mg/dL Urine Blood (Negative) Urine Nitrite (Negative) Urine Bilirubin (Negative) Urine Urobilinogen (Normal) mg/dL Ur Leukocyte Esterase (Negative) Urine Microscopic WBC (0-3) per hpf Ur Squamous Epith Cells (None-Few) per lpf Urine Bacteria (None-Few) per hpf Ur Culture Indicated? (NO) - Radiology Data Radiology results reviewed: Yes I reviewed the patient's radiology results. - EKG Data EKG attestation: Yes I reviewed and interpreted this EKG. EKG results narrative: Heart rate of 100 NM 144 QRS 86 QT 309 axis LXXII Critical Care Time Critical Care Time: No
[2019-02-05 12:20] LABS: Basophils # 0.1 K/mcL (0.0-0.2); Basophils % 0.7 %; Eosinophils # 0.5 K/mcL (0.0-0.6); Eosinophils % 5.8 %; Hemoglobin 12.4 g/dL (12.9-16.9); Immature Granulocytes % 4.2 % (0-4); Lymphocytes # 1.4 K/mcL (0.6-4.6); Lymphocytes % 15.8 %; Mean Corpuscular HGB Conc 30.2 g/dL (31.6-35.5); Mean Corpuscular Hemoglobin 25.4 pg (28.0-33.3); Mean Platelet Volume 9.1 fL (9.4-12.4); Monocytes # 0.6 K/mcL (0.0-1.3); Monocytes % 7.1 %; Neutrophils # 5.7 K/mcL (1.6-8.9); Nucleated Red Blood Cells 0.2 /100 WBC (0); Platelet Count 150 K/mcL (140-400); Red Blood Count 4.88 M/mcL (4.19-5.50); Red Cell Distribution Width 18.9 % (11.5-14.5); Segmented Neutrophils % 66.4 %; White Blood Count 8.6 K/mcL (4.3-11.1)
[2019-02-05 12:21] LABS: INR 1.1
[2019-02-05 12:23] LABS: Activated Partial Thrombo Time 30.1 Seconds (26.0-36.0)
[2019-02-05 12:24] LABS: Bilirubin,Urine Negative (Negative); Blood,Urine Negative (Negative); Clarity,Urine Clear (Clear); Color,Urine Yellow (Yellow); Glucose,Urine (UA) 100 mg/dL (Normal); Ketones,Urine Negative (Negative); Leukocyte Esterase,Urine Trace (Negative); Nitrite,Urine Positive (Negative); Protein,Urine Negative (Neg-Trace); Urobilinogen,Urine Normal (Normal)
[2019-02-05 12:30] LABS: Alanine Aminotransferase 33 Units/L (7-52); Albumin 3.8 g/dL (3.5-5.7); Albumin/Globulin Ratio 1.6 (1.1-2.2); Alkaline Phosphatase 83 Units/L (34-104); Aspartate Amino Transferase 12 Units/L (13-39); BUN/Creatinine Ratio 32 (6-26); Bilirubin,Total 0.4 mg/dL (0.3-1.0); Blood Urea Nitrogen 33 mg/dL (8-23); Calcium 9.3 mg/dL (8.6-10.3); Carbon Dioxide 30 mEq/L (23-29); Chloride 101 mEq/L (98-107); Globulin 2.4 g/dL (2.4-3.5); Glucose 163 mg/dL (70-105); Magnesium 2.1 mg/dL (1.6-2.6); Osmolality,Calculated 291 (280-300); Phosphorous 2.7 mg/dL (2.7-4.5); Potassium 4.8 mEq/L (3.5-5.1); Sodium 135 mEq/L (136-145); Total Protein 6.2 g/dL (6.4-8.9); eGFR For African Americans > 60 (> 60); eGFR For Non-African Americans > 60 (> 60)
[2019-02-05 12:34] LABS: Bacteria,Urine Few per hpf (None-Few); Squamous Epithelial Cell,Urine Few per lpf (None-Few); WBC,Urine 0-3 per hpf (0-3)
--- NOTE | 2019-02-05 14:40 | Internal Med History&Physical ---
Date of Encounter: 02/05/19 Time of Encounter: 14:38 Assessment and Plan (1) Acute exacerbation of chronic obstructive airways disease Current visit: Yes Status: Resolved Continue antibiotics and IV steroids. Continue BiPAP and oxygen. Will monitor O2 sats. (2) UTI (urinary tract infection) Current visit: Yes Status: Acute Continue antibiotics. Monitor for culture. Qualifiers: Urinary tract infection type: site unspecified Hematuria presence: without hematuria Qualified Code(s): N39.0 - Urinary tract infection, site not specified (3) CHF (congestive heart failure) Current visit: Yes Status: Chronic Controlled with current medication. Monitor for decompensation. Stable at this time. Qualifiers: Heart failure type: unspecified Heart failure chronicity: acute on chronic Qualified Code(s): I50.9 - Heart failure, unspecified (4) MARILYNN (obstructive sleep apnea) Current visit: Yes Status: Chronic Continue BiPAP. (5) Hypertension Current visit: Yes Status: Chronic Controlled with current medication. Monitor blood pressure. Qualifiers: Hypertension type: essential hypertension Qualified Code(s): I10 - Essential (primary) hypertension Internal Medicine - H&P: HPI Admitted From: Emergency Dept Plans for Post Hospital Care: Home History of present illness: Mr. Bose is a 63 year old male admitted for observation for COPD. Patient presented to the emergency room at [facility] today after increasing shortness of breath. Patient was hospitalized about 2 weeks ago for pneumonia. Has history of arthritis, asthma, CHF, COPD, diabetes, hypertension. Wears oxygen and BiPAP machine at home. Scheduled in the next couple weeks for sleep study. Sister is at bedside at this time. Patient states that shortness of breath started worse this morning as he presented to the physicians office for an appointment. States yesterday he was sitting outside on the porch grilling and felt a little short of breath at that time as well. Denies fever, chills, nausea, vomiting or diarrhea. Denies chest pain. Urine is positive for infec tion. Denies any urinary symptoms. Culture pending. Past Med Surg Social Fam HX - Past Medical History Medical history: arthritis, asthma, CHF, COPD, diabetes, hypertension Additional medical history: PT STATES HE STARTED SMOKING @17 YRS OF AGE. NOSE FX. CPID. ENLARGED LIVER Psychiatric history: anxiety, depression - Past Surgical History Surgical History: other Additional surgical history: 03/31/18 MYELOGRAM @[facility]. HERNIA REPAIR X2. Bilateral Carpal Tunnel Surgery. 2 hip replacements - Social History Smoking Status: Former smoker Smokeless Tobacco Status: Yes Alcohol use: none Drug use: none - Family History Father Adopted: No Family Member Ethnicity: Non- Living Status: Hx Family Cardiac Disorders: Yes ([place], [place]) Hx Family Respiratory Disorders: Yes (COPD) Hx Family Cancer: No Hx Family GI Disorders: No Hx Family Endocrine Disorder: No Hx Family Neuromuscular Disorders: No Hx Family Neurologic Disorders: No Hx Family HEENT Disorders: No Hx Family Autoimmune Disorders: No Mother Adopted: No Family Member Ethnicity: Non- Living Status: Hx Family Cardiac Disorders: No Hx Family Respiratory Disorders: No Hx Family Cancer: Yes Hx Family GI Disorders: No Hx Family Endocrine Disorder: No Hx Family Neuromuscular Disorders: No Hx Family Neurologic Disorders: No Hx Family HEENT Disorders: No Hx Family Autoimmune Disorders: No Internal Medicine - H&P: Meds Cyclobenzaprine HCl 10 mg PO TID PRN 08/04/16 [History] Gabapentin [Neurontin] 400 mg PO QID 08/04/16 [History] Ipratropium/Albuterol Neb [Duoneb] 3 ml IH Q4H PRN 08/04/16 [History] Tamsulosin [Flomax] 0.4 mg PO DAILY #30 capsule 06/28/17 [Rx] Acetaminophen [Tylenol] 650 mg PO Q6HR PRN 01/07/19 [History] Albuterol Sulfate [Ventolin Hfa] 2 puff IH Q6H PRN 01/07/19 [History] Losartan Potassium [Cozaar] 50 mg PO DAILY 01/07/19 [History] glipiZIDE [Glipizide] 10 mg PO BID 01/09/19 [History] Budesonide/Formoterol 160/4.5 [Symbicort 160/4.5] 2 puff IH BIDR 30 Days #2 inh 01/12/19 [Rx] ALPRAZolam [Xanax 1 MG Tablet] 1 mg PO BID PRN 30 Days #60 tablet 01/16/19 [Rx] Allergy/AdvReac Type Severity Reaction Status Date / Time cephalexin AdvReac Rash Verified 01/18/19 21:23 clindamycin AdvReac Rash Verified 01/18/19 21:23 All Systems PM: A 10-system review of systems was performed and is negative for pertinent findings except as documented above in the HPI. - Constitutional Constitutional: no chills, no fever(s), no night sweats - EENT Eyes: no change in vision, no discharge, no pain, no photophobia Ears: no ear discharge, no ear pain, no tinnitus Nose, mouth and throat: no dysphagia, no nasal discharge, no neck pain, no sore throat - Cardiovascular Cardiovascular ROS IM: no chest pain, no diaphoresis, no dyspnea, no lightheadedness, no palpitations, no syncope - Respiratory Respiratory: as per HPI, cough, dyspnea, no excessive phlegm production - Gastrointestinal Gastrointestinal: no abdominal pain, no diarrhea, no hematemesis, no hematochezia, no melena, no nausea, no vomiting - Musculoskeletal Musculoskeletal ROS IM: no numbness, no tingling - Integumentary Integumentary IM: no rash, no unusual bruising - Neurological Neurological ROS: no confusion, no convulsions, no focal weakness, no numbness, no tingling, no tremor(s) - Hematologic/Lymphatic Hematologic/Lymphatic: no easy bruising - Constitutional Vitals: Temp Pulse Resp BP Pulse Ox 99.0 F 108 24 132/77 93 02/05/19 11:30 02/05/19 13:38 02/05/19 13:38 02/05/19 13:38 02/05/19 13:38 General appearance: Present: cooperative, A&O X 3, morbidly obese, pleasant, answers questions appropriately - Head Head exam: Present: atraumatic, normocephalic - Eye Eye exam: Present: PERRL, conjuntiva pink, sclera anicteric Pupils: Present: PERRL - Neck Neck exam general surgery: Present: supple, trachea midline. Absent: lymphadenopathy - Respiratory Respiratory exam: Absent: accessory muscle use, rales, rhonchi, wheezes Additional comments: Decreased breath sounds, left upper lobe expiratory wheezes. - Cardiovascular Cardiovascular exam: Present: RRR, +S1, +S2. Absent: diastolic murmur, gallop, rubs, systolic murmur - GI/Abdominal GI/Abdominal exam: Present: normal bowel sounds, soft, no peritoneal signs. Absent: distended, tenderness - Extremities Exam Extremities exam: Present: warm, radial pulses palpable and symmetrical. Absent: calf tenderness, cyanotic, pedal edema - Neurological Exam Neurological exam: Present: CN II-XII intact, oriented X3, no focal deficits. Absent: pronater drift, facial droop, speech deficit - Skin Skin exam: Present: dry, intact Internal Med - H&P Results - Labs CBC & Chem 7: 02/05/19 12:00 02/05/19 12:00 Labs: Short CBC 02/05/19 Range/Units 12:00 WBC 8.6 (4.3-11.1) K/mcL Hgb 12.4 L (12.9-16.9) g/dL Hct 41.0 (37.5-50.1) % Plt Count 150 (140-400) K/mcL Neutrophils # 5.7 (1.6-8.9) K/mcL BMP 02/05/19 12:00 Sodium 135 L Potassium 4.8 Chloride 101 Carbon Dioxide 30 H BUN 33 H Creatinine 1.02 Glucose 163 H Calcium 9.3 Cardiac Enzymes 02/05/19 Range/Units 12:00 Troponin I < 0.03 (< 0.04) ng/mL Liver Function 02/05/19 Range/Units 12:00 Total Bilirubin 0.4 (0.3-1.0) mg/dL AST 12 L (13-39) Units/L ALT 33 (7-52) Units/L Alkaline Phosphatase 83 (34-104) Units/L Albumin 3.8 (3.5-5.7) g/dL Urine 02/05/19 Range/Units 12:00 Urine Color Yellow (Yellow) Urine Clarity Clear (Clear) Urine pH 6.0 (5.0-8.0) pH Units Ur Specific [place] 1.010 (1.010-1.025) Urine Protein Negative (Neg-Trace) mg/dL Urine Glucose (UA) 100 H (Normal) mg/dL - Impressions ITS Impressions Chest X-Ray 02/05/19 11:33 IMPRESSION: No acute cardiopulmonary process is identified. No left basilar pneumonic infiltrate. D/ / Ramos Laura MD / Ramos Laura MD Interpreting Provider: Ramos Laura MD
[2019-02-05] MEDS ORDERED: Acetaminophen 325 MG TABLET PO PRN (14:53)
[2019-02-05] MEDS ORDERED: ALPRAZolam 1 MG TABLET PO PRN (14:53)
[2019-02-05] MEDS ORDERED: Dextrose Gel 15 GM/37.5 ML TUBE PO PRN ×2 (14:55)
[2019-02-05] MEDS ORDERED: D5% in Water 1,000 ML IVC PRN (14:55)
[2019-02-05] MEDS ORDERED: *HR* Dextrose 50 % in Water (Syg) 50 ML SYRINGE IVP PRN (14:55)
[2019-02-05] MEDS: Ipratropium/Albuterol Neb 3 ML IH PRN ×2 (15:22→21:23)
[2019-02-05] MEDS ORDERED: Ipratropium/Albuterol Neb 3 ML IH SCH (16:00)
[2019-02-05] MEDS: GlipiZIDE 5 MG TABLET PO SCH (17:06)
[2019-02-05] MEDS: Gabapentin 400 MG CAPSULE PO SCH ×2 (17:06→21:23)
[2019-02-05] MEDS: *HR* Heparin 5,000 UNIT/ML VIAL SQ SCH (17:06)
[2019-02-05] MEDS: Insulin LISPRO 300 UNITS/3 ML VIAL SQ SCH (17:07)
[2019-02-05] MEDS: methylPREDNISolone 125 MG/2 ML VIAL IVP SCH (17:07)
[2019-02-05] MEDS ORDERED: Insulin LISPRO 300 UNITS/3 ML VIAL SQ SCH (21:00)
[2019-02-05] MEDS: Budesonide/Formoterol 160/4.5 1 PUFF INH IH SCH (21:23)
--- NOTE | 2019-02-05 22:58 | Electrocardiograph Report ---
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
[2019-02-06] MEDS: Ipratropium/Albuterol Neb 3 ML IH PRN ×3 (00:11→10:02)
[2019-02-06] MEDS: methylPREDNISolone 125 MG/2 ML VIAL IVP SCH ×2 (00:11→07:48)
[2019-02-06] MEDS: *HR* Heparin 5,000 UNIT/ML VIAL SQ SCH (05:02)
[2019-02-06 07:45] VITALS: BP 154/83
[2019-02-06] MEDS: GlipiZIDE 5 MG TABLET PO SCH (07:48)
[2019-02-06] MEDS: Gabapentin 400 MG CAPSULE PO SCH (07:48)
[2019-02-06] MEDS: Insulin LISPRO 300 UNITS/3 ML VIAL SQ SCH (07:50)
[2019-02-06] MEDS ORDERED: levoFLOXacin 750 MG/150 ML 750 MG/150 ML BAG IVPB SCH (09:00)
--- NOTE | 2019-02-06 09:45 | Physician Discharge Referral ---
Home Health/Hosp Referral Info Transfer to: Home Health Provider in Charge Post Discharge: PCP - Diagnosis (1) Acute exacerbation of chronic obstructive airways disease Priority: Primary Status: Resolved (2) UTI (urinary tract infection) Priority: Secondary Status: Acute (3) CHF (congestive heart failure) Priority: Secondary Status: Chronic (4) MARILYNN (obstructive sleep apnea) Priority: Secondary Status: Chronic (5) Hypertension Priority: Secondary Status: Chronic - Respiratory Orders Oxygen / L per min Smoking Cessation: Smoking cessation has been advised. For more information, call the [place] [employer] Quit Line at [phone]. - Diet/Nutrition Diet/Nutrition Orders: Regular - Activity Activity Orders: Ambulate - Services Needed Following services are medically necessary services: Nursing, Physical Therapy - Transfer Medications Home Medications: Cyclobenzaprine HCl 10 mg PO TID PRN 08/04/16 [History] Gabapentin [Neurontin] 400 mg PO QID 08/04/16 [History] Ipratropium/Albuterol Neb [Duoneb] 3 ml IH Q4H PRN 08/04/16 [History] Tamsulosin [Flomax] 0.4 mg PO DAILY #30 capsule 06/28/17 [Rx] Acetaminophen [Tylenol] 650 mg PO Q6HR PRN 01/07/19 [History] Albuterol Sulfate [Ventolin Hfa] 2 puff IH Q6H PRN 01/07/19 [History] Losartan Potassium [Cozaar] 50 mg PO DAILY 01/07/19 [History] glipiZIDE [Glipizide] 10 mg PO BID 01/09/19 [History] Budesonide/Formoterol 160/4.5 [Symbicort 160/4.5] 2 puff IH BIDR 30 Days #2 inh 01/12/19 [Rx] ALPRAZolam [Xanax 1 MG Tablet] 1 mg PO BID PRN 30 Days #60 tablet 01/16/19 [Rx] Allergies/Adverse Reactions: Allergy/AdvReac Type Severity Reaction Status Date / Time cephalexin AdvReac Rash Verified 01/18/19 21:23 clindamycin AdvReac Rash Verified 01/18/19 21:23 Certification: Further, I certify that my clinical findings support that this patient is homebound (i.e. absences from home require considerable and taxing effort and are for medical reasons or hindu services or infrequently or short duration when for other reasons) because: Homebound Reason: Patient requires assistance of a person or device to safely leave home, Leaving home requires considerable and taxing effort due to condition Attestation: My signature below is to certify that this patient is under my care and that I, or nurse practitioner, or a physician's pet care assistant working with me, has a [id number] encounter with this patient.
--- NOTE | 2019-02-06 09:48 | Discharge Summary ---
- NOTES TO OUTPATIENT PROVIDER Notes to Outpatient Provider: Started on Levemir 10 units. Home health nurse to teach diabetic teaching and insulin injections. Orders not resulted at time of discharge: Pending orders 02/05/19 12:00 Culture,Blood [BC] Stat Culture,Urine [RM] Stat Date of Encounter: 02/06/19 Time of Encounter: 09:46 - Discharge Diagnosis (1) Acute exacerbation of chronic obstructive airways disease Priority: Primary Status: Resolved Comments: Improving. Continue inhaled meds and BiPAP at home. Continue Levaquin and prednisone. Follow up with PCP and one week. (2) UTI (urinary tract infection) Priority: Secondary Status: Acute Comments: Will continue to monitor for urine culture. Continue Levaquin at this time. Denies any urinary symptoms Qualifiers: Urinary tract infection type: site unspecified Hematuria presence: without hematuria Qualified Code(s): N39.0 - Urinary tract infection, site not specified (3) CHF (congestive heart failure) Priority: Secondary Status: Chronic Comments: Controlled with current medication. Follow up with PCP. Qualifiers: Heart failure type: unspecified Heart failure chronicity: acute on chronic Qualified Code(s): I50.9 - Heart failure, unspecified (4) MARILYNN (obstructive sleep apnea) Priority: Secondary Status: Chronic Comments: Continue BiPAP at night. Scheduled for sleep study in March. (5) Hypertension Priority: Secondary Status: Chronic Comments: Controlled with current medication. Monitor blood pressure. Qualifiers: Hypertension type: essential hypertension Qualified Code(s): I10 - Essential (primary) hypertension (6) Diabetes Priority: Secondary Status: Chronic Comments: Glucose elevated. Has been on steroids. [facility] Will continue with insulin but start long-acting instead, Levemir 10 unit at bedtime. Home health nurse to provide diabetic education and insulin administration education. Follow up with PCP. 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 Bose is a 63 year old male discharging to home after being admitted with COPD exacerbation. Patient has had a couple admissions over the past couple months. Both due to COPD exacerbation. Education provided. Wears BiPAP at night and has home oxygen. Has taking steroids for breathing. This is elevated blood sugars. Will start Levemir 10 unit. Home health nurse to provide diabetic education and diabetic insulin injection education. Will also have home health PT to eval and treat for deconditioning. Instructed to follow up with PCP within one week. Prescriptions provided for Levaquin 750 mg daily for 7 days, prednisone 40 mg for 5 days then 20 mg for 5 days, Levemir 10 units at bedtime. Instructed patient to check blood sugar ac & hs. states feeling much better. denies fever, chills, SOB, chest pain, NVD. denies any further questions. Discharge discussed with: patient, family, nurse, social work - Time Spent with Patient Total time spent providing and/or coordinating discharge services: Time spent: Less than 30 minutes - Discharge Medications Prescriptions: No Action Tamsulosin [Flomax] 0.4 mg PO DAILY #30 capsule glipiZIDE [Glipizide] 10 mg PO BID Budesonide/Formoterol 160/4.5 [Symbicort 160/4.5] 2 puff IH BIDR 30 Days #2 inh ALPRAZolam [Xanax 1 MG Tablet] 1 mg PO BID PRN 30 Days #60 tablet PRN Reason: Anxiety Gabapentin [Neurontin] 400 mg PO QID Ipratropium/Albuterol Neb [Duoneb] 3 ml IH Q4H PRN PRN Reason: Shortness Of Breath Cyclobenzaprine HCl 10 mg PO TID PRN PRN Reason: Muscle Spasm Albuterol Sulfate [Ventolin Hfa] 2 puff IH Q6H PRN PRN Reason: Shortness Of Breath Losartan Potassium [Cozaar] 50 mg PO DAILY Acetaminophen [Tylenol] 650 mg PO Q6HR PRN PRN Reason: Pain Home Medications: Cyclobenzaprine HCl 10 mg PO TID PRN 08/04/16 [History] Gabapentin [Neurontin] 400 mg PO QID 08/04/16 [History] Ipratropium/Albuterol Neb [Duoneb] 3 ml IH Q4H PRN 08/04/16 [History] Tamsulosin [Flomax] 0.4 mg PO DAILY #30 capsule 06/28/17 [Rx] Acetaminophen [Tylenol] 650 mg PO Q6HR PRN 01/07/19 [History] Albuterol Sulfate [Ventolin Hfa] 2 puff IH Q6H PRN 01/07/19 [History] Losartan Potassium [Cozaar] 50 mg PO DAILY 01/07/19 [History] glipiZIDE [Glipizide] 10 mg PO BID 01/09/19 [History] Budesonide/Formoterol 160/4.5 [Symbicort 160/4.5] 2 puff IH BIDR 30 Days #2 inh 01/12/19 [Rx] ALPRAZolam [Xanax 1 MG Tablet] 1 mg PO BID PRN 30 Days #60 tablet 01/16/19 [Rx] Allergies/Adverse Reactions: Allergy/AdvReac Type Severity Reaction Status Date / Time cephalexin AdvReac Rash Verified 01/18/19 21:23 clindamycin AdvReac Rash Verified 01/18/19 21:23 Date of admission: 02/05/19 13:35 Primary care physician: PCP NONE Discharging clinician: Niels Napoles Anticipated date of discharge: 02/06/19 - Constitutional Vitals: Temp Pulse Resp BP Pulse Ox 97.5 F L 94 20 154/83 95 02/06/19 07:42 02/06/19 07:42 02/06/19 07:42 02/06/19 07:42 02/06/19 07:42 General appearance: Present: cooperative, A&O X 3, morbidly obese, pleasant, no acute distress, answers questions appropriately - Head Head exam: Present: atraumatic, normocephalic - Eye Eye exam: Present: PERRL, conjuntiva pink, sclera anicteric Pupils: Present: PERRL - Neck Neck exam general surgery: Present: supple, trachea midline. Absent: lymphadenopathy - Respiratory Respiratory exam: Present: CTAB. Absent: accessory muscle use, rales, rhonchi, wheezes Additional comments: diminished bilat bases. - Cardiovascular Cardiovascular exam: Present: RRR, +S1, +S2. Absent: diastolic murmur, gallop, rubs, systolic murmur - GI/Abdominal GI/Abdominal exam: Present: normal bowel sounds, soft, no peritoneal signs. Absent: distended, tenderness - Extremities Exam Extremities exam: Present: warm, radial pulses palpable and symmetrical. Absent: calf tenderness, cyanotic, pedal edema - Neurological Exam Neurological exam: Present: CN II-XII intact, oriented X3, no focal deficits. Absent: pronater drift, facial droop, speech deficit - Skin Skin exam: Present: dry, intact - Patient Status Disposition: Home Health Service Condition: Good Functional capacity at discharge: independent ambulation Overall status at discharge: patient is progressing back to baseline - Discharge Instructions Follow Up With: NONE,PCP [Primary Care Provider] - - Diet and Activity Activity: as per physical therapy, increase activity as tolerated Diet: diabetic diet
[2019-02-06] MEDS: Budesonide/Formoterol 160/4.5 1 PUFF INH IH SCH (10:02)
== END 2019-02-06 11:27 | disposition home health service (06) ==
LOC: EMEROOGRE 11:27 → INPGRE 11:27 → EMEROOGRE 12:46 → INPGRE 14:04

== ENCOUNTER 2019-04-28 23:19 | Observation (INO) ==
[2019-04-28] MEDS ORDERED: Nitroglycerin 0.4 MG TAB.SUBL SL PRN (23:25)
[2019-04-28] MEDS ORDERED: 0.9 % Sodium Chloride 1,000 ML IVC SCH (23:30)
--- NOTE | 2019-04-28 23:47 | Emergency Department Note ---
Disposition Clinical Impression: Acute exacerbation of COPD with asthma, Chest pain, Fever Disposition: Transfer Short-Term Hosp Time of Disposition: 02:00 General Adult HPI - General Stated complaint: Chest pain Time Seen by Provider: 04/28/19 23:24 Source: patient Mode of arrival: EMS Limitations: no limitations Nursing Notes Reviewed: Yes Vital Signs Reviewed: Yes - History of Present Illness HPI Narrative: Patient complains of shortness of breath fever for the past couple days. His been coughing up occasional greenish sputum. His chest wall is been sore since the day after he threw some water softener salt the back of his truck. Onset (ago): day(s) (To 3 days) Location: chest Radiation: non-radiation Pain Severity: mild Quality: aching Consistency: constant Improves with: nothing Worsens with: nothing Associated symptoms: Reports: chest pain, cough, fever/chills, shortness of breath - Related Data Home Medications Medication Instructions Recorded Confirmed Ipratropium/Albuterol Neb [Duoneb] 3 ml IH 5XD PRN 08/04/16 04/29/19 Acetaminophen [Tylenol] 650 mg PO Q6HR PRN 01/07/19 04/29/19 Albuterol Sulfate [Ventolin Hfa] 2 puff IH Q6H PRN 01/07/19 04/29/19 Losartan Potassium [Cozaar] 50 mg PO DAILY 01/07/19 04/29/19 ALPRAZolam [Xanax 1 MG Tablet] 1 mg PO TID 04/12/19 04/29/19 Cyclobenzaprine [Flexeril] 10 mg PO TID 04/12/19 04/29/19 Glimepiride [Amaryl] 2 mg PO DAILY 04/12/19 04/29/19 Insulin ASPART [Novolog Flexpen] 2 - 6 unit SQ TIDWM 04/12/19 04/29/19 Insulin DETEMIR [Levemir Flextouch] 28 unit SQ HS 04/12/19 04/29/19 Previous Rx's Medication Instructions Recorded Finasteride [Proscar] 5 mg PO DAILY #30 tablet 04/16/19 Gabapentin [Neurontin] 400 mg PO QID #21 04/16/19 Gabapentin [Neurontin] 400 mg PO QID #21 capsule 04/16/19 Allergies Allergy/AdvReac Type Severity Reaction Status Date / Time cephalexin AdvReac Rash Verified 04/12/19 16:38 clindamycin AdvReac Rash Verified 04/12/19 16:38 Influenza Virus Vaccines AdvReac See Verified 04/29/19 03:00 Comments All systems ED: reviewed and negative except as stated. Review of Systems: As Per HPI Constitutional: Reports: as per HPI, fever Eyes: Denies: eye pain, eye discharge, vision change ENT ED: Denies: ear pain, throat pain, dental pain, hearing loss, epistaxis, congestion, dysphagia Cardiovascular: Reports: as per HPI, chest pain. Denies: palpitations, syncope, paroxysmal nocturnal dyspnea Respiratory: Reports: as per HPI, cough, dyspnea Gastrointestinal: Denies: abdominal pain, nausea, vomiting, diarrhea, constipation, hematemesis, melena, hematochezia Genitourinary: Denies: urgency, dysuria, frequency, hematuria Musculoskeletal: Denies: back pain, neck pain, arthralgia, myalgia Integumentary: Denies: rash, abrasion, lesions Neurological: Denies: headache, weakness, numbness, paresthesias, confusion, abnormal gait, vertigo Psychiatric: Denies: anxiety, depression, suicidal thoughts, homicidal thoughts, auditory hallucinations, visual hallucinations Endocrine: Denies: fatigue Hematological/Lymphatic: Denies: easy bleeding, easy bruising Past Medical History - Past Medical History Attestation: Yes The following information was validated with the patient. Source: patient, nursing notes reviewed Medical history: Reports: arthritis, asthma, CHF, COPD, diabetes, hypertension Surgical history: Reports: other Psychiatric history: Reports: anxiety, depression - Social History Smoking Status: Former smoker Smokeless Tobacco Status: Yes Alcohol use: Reports: none Drug use: Reports: none Physical Exam - General Limitations: no limitations General appearance: alert, in no apparent distress - Head Head exam: atraumatic, normocephalic, normal inspection - Eye Eye exam: Present: normal appearance, PERRL, EOMI - ENT ENT exam: normal exam, normal oropharynx, mucous membranes moist - Neck Neck exam: Present: normal inspection - Chest Chest inspection: Present: normal inspection, symmetric chest wall rise - Respiratory Respiratory exam: Present: wheezes, prolonged expiratory phase. Absent: respiratory distress, stridor, accessory muscle use - Cardiovascular Cardiovascular exam: Present: normal rhythm, tachycardia - Abdominal Exam Abdominal exam: Present: soft, Non-Tender, normal bowel sounds - Extremities Exam Extremities exam: Present: normal inspection, full ROM. Absent: tenderness, pedal edema - Back Exam Back exam: Present: normal inspection, full ROM. Absent: tenderness - Neurological Exam Neurological exam: Present: alert, oriented X3 - Psychiatric Psychiatric exam: Present: normal affect, normal mood - Skin Skin exam: Present: warm, dry, intact, normal color Course Vital Signs Temperature 102.2 F H 04/28/19 23:30 Pulse Rate 126 04/28/19 23:30 Respiratory Rate 24 04/28/19 23:30 Blood Pressure 136/87 04/28/19 23:30 O2 Sat by Pulse Oximetry 96 04/28/19 23:30 Temperature 98.3 F 04/29/19 04:00 Pulse Rate 107 04/29/19 04:00 Respiratory Rate 21 04/29/19 04:00 Blood Pressure 122/81 04/29/19 04:00 O2 Sat by Pulse Oximetry 96 04/29/19 04:00 Oxygen Delivery Oxygen Delivery Nasal Cannula Medical Decision Making - [facility] Narrative Medical decision making narrative: I reviewed the patient's medication list - Lab Data Lab results reviewed: Yes I reviewed the patient's lab results. Result diagrams: 04/29/19 05:40 04/29/19 05:40 Lab Results 04/28/19 04/28/19 04/28/19 Range/Units 23:50 23:50 23:50 WBC 14.6 H (4.3-11.1) K/mcL RBC 4.43 (4.19-5.50) M/mcL Hgb 11.3 L (12.9-16.9) g/dL Hct 35.9 L (37.5-50.1) % MCV 81.0 L (83.0-100.0) fL MCH 25.5 L (28.0-33.3) pg MCHC 31.5 L (31.6-35.5) g/dL RDW 15.7 H (11.5-14.5) % Plt Count 249 (140-400) K/mcL MPV 9.5 (9.4-12.4) fL Immature Gran % 1.7 (0-4) % Seg Neutrophils % 80.1 % Lymphocytes % 9.4 % Monocytes % 7.0 % Eosinophils % 1.4 % Basophils % 0.4 % Neutrophils # 11.7 H (1.6-8.9) K/mcL Lymphocytes # 1.4 (0.6-4.6) K/mcL Monocytes # 1.0 (0.0-1.3) K/mcL Eosinophils # 0.2 (0.0-0.6) K/mcL Basophils # 0.1 (0.0-0.2) K/mcL Sodium 131 L (136-145) mEq/L Potassium 4.3 (3.5-5.1) mEq/L Chloride 94 L (98-107) mEq/L Carbon Dioxide 30 H (23-29) mEq/L BUN 13 (8-23) mg/dL Creatinine 1.49 H (0.70-1.30) mg/dL Est GFR ( Amer) 58 L (> 60) Est GFR (Non-Af Amer) 47 L (> 60) BUN/Creatinine Ratio 9 (6-26) Glucose 216 H (70-105) mg/dL Calculated Osmolality 279 L (280-300) Lactic Acid 0.9 (0.5-2.2) mmol/L Calcium 9.6 (8.6-10.3) mg/dL Total Bilirubin 0.9 (0.3-1.0) mg/dL AST 11 L (13-39) Units/L ALT 15 (7-52) Units/L Alkaline Phosphatase 76 (34-104) Units/L Troponin I < 0.03 (< 0.04) ng/mL Serum Total Protein 6.8 (6.4-8.9) g/dL Albumin 3.9 (3.5-5.7) g/dL Globulin 2.9 (2.4-3.5) g/dL Albumin/Globulin Ratio 1.3 (1.1-2.2) Urine Color (Yellow) Urine Clarity (Clear) Urine pH (5.0-8.0) pH Units Ur Specific [place] (1.010-1.025) Urine Protein (Neg-Trace) mg/dL Urine Glucose (UA) (Normal) mg/dL Urine Ketones (Negative) mg/dL Urine Blood (Negative) Urine Nitrite (Negative) Urine Bilirubin (Negative) Urine Urobilinogen (Normal) mg/dL Ur Leukocyte Esterase (Negative) Urine Microscopic RBC (0-3) per hpf Urine Microscopic WBC (0-3) per hpf Ur Squamous Epith Cells (None-Few) per lpf Urine Bacteria (None-Few) per hpf Ur Culture Indicated? (NO) 04/29/19 Range/Units 00:53 WBC (4.3-11.1) K/mcL RBC (4.19-5.50) M/mcL Hgb (12.9-16.9) g/dL Hct (37.5-50.1) % MCV (83.0-100.0) fL MCH (28.0-33.3) pg MCHC (31.6-35.5) g/dL RDW (11.5-14.5) % Plt Count (140-400) K/mcL MPV (9.4-12.4) fL Immature Gran % (0-4) % Seg Neutrophils % % Lymphocytes % % Monocytes % % Eosinophils % % Basophils % % Neutrophils # (1.6-8.9) K/mcL Lymphocytes # (0.6-4.6) K/mcL Monocytes # (0.0-1.3) K/mcL Eosinophils # (0.0-0.6) K/mcL Basophils # (0.0-0.2) K/mcL Sodium (136-145) mEq/L Potassium (3.5-5.1) mEq/L Chloride (98-107) mEq/L Carbon Dioxide (23-29) mEq/L BUN (8-23) mg/dL Creatinine (0.70-1.30) mg/dL Est GFR ( Amer) (> 60) Est GFR (Non-Af Amer) (> 60) BUN/Creatinine Ratio (6-26) Glucose (70-105) mg/dL Calculated Osmolality (280-300) Lactic Acid (0.5-2.2) mmol/L Calcium (8.6-10.3) mg/dL Total Bilirubin (0.3-1.0) mg/dL AST (13-39) Units/L ALT (7-52) Units/L Alkaline Phosphatase (34-104) Units/L Troponin I (< 0.04) ng/mL Serum Total Protein (6.4-8.9) g/dL Albumin (3.5-5.7) g/dL Globulin (2.4-3.5) g/dL Albumin/Globulin Ratio (1.1-2.2) Urine Color Yellow (Yellow) Urine Clarity Clear (Clear) Urine pH 7.5 (5.0-8.0) pH Units Ur Specific [place] 1.015 (1.010-1.025) Urine Protein 100 H (Neg-Trace) mg/dL Urine Glucose (UA) Normal (Normal) mg/dL Urine Ketones Negative (Negative) mg/dL Urine Blood Large H (Negative) Urine Nitrite Positive A (Negative) Urine Bilirubin Negative (Negative) Urine Urobilinogen Normal (Normal) mg/dL Ur Leukocyte Esterase Small H (Negative) Urine Microscopic RBC 3-5 H (0-3) per hpf Urine Microscopic WBC 3-5 H (0-3) per hpf Ur Squamous Epith Cells Few (None-Few) per lpf Urine Bacteria Few (None-Few) per hpf Ur Culture Indicated? YES A (NO) - Radiology Data Radiology results reviewed: Yes I reviewed the patient's radiology results. - EKG Data EKG #1 EKG attestation: Yes I reviewed and interpreted this EKG. EKG results narrative: EKG shows a relative sinus tachycardia at a rate of 125 bpm. GA interval is 154 ms QRS duration 95 ms QT interval 282 QTC 407 ms. QRS axis 77 degrees. No ischemic changes appreciated.
[2019-04-28] MEDS: Aspirin 81 MG TAB.CHEW PO STA (23:54)
[2019-04-29] MEDS: Aspirin 81 MG TAB.CHEW PO STA (00:20)
[2019-04-29 00:25] LABS: Basophils # 0.1 K/mcL (0.0-0.2); Basophils % 0.4 %; Eosinophils # 0.2 K/mcL (0.0-0.6); Eosinophils % 1.4 %; Hematocrit 35.9 % (37.5-50.1); Hemoglobin 11.3 g/dL (12.9-16.9); Immature Granulocytes % 1.7 % (0-4); Lymphocytes # 1.4 K/mcL (0.6-4.6); Lymphocytes % 9.4 %; Mean Corpuscular HGB Conc 31.5 g/dL (31.6-35.5); Mean Corpuscular Hemoglobin 25.5 pg (28.0-33.3); Mean Platelet Volume 9.5 fL (9.4-12.4); Neutrophils # 11.7 K/mcL (1.6-8.9); Platelet Count 249 K/mcL (140-400); Red Blood Count 4.43 M/mcL (4.19-5.50); Red Cell Distribution Width 15.7 % (11.5-14.5); Segmented Neutrophils % 80.1 %; White Blood Count 14.6 K/mcL (4.3-11.1)
[2019-04-29 00:42] LABS: Troponin I < 0.03 ng/mL (< 0.04)
[2019-04-29 00:56] LABS: Bilirubin,Urine Negative (Negative); Blood,Urine Large (Negative); Clarity,Urine Clear (Clear); Color,Urine Yellow (Yellow); Glucose,Urine (UA) Normal (Normal); Ketones,Urine Negative (Negative); Leukocyte Esterase,Urine Small (Negative); Nitrite,Urine Positive (Negative); PH,Urine 7.5 pH Units (5.0-8.0); Protein,Urine 100 mg/dL (Neg-Trace); Specific Gravity,Urine 1.015 (1.010-1.025); Urobilinogen,Urine Normal (Normal)
[2019-04-29 00:57] LABS: Alanine Aminotransferase 15 Units/L (7-52); Albumin 3.9 g/dL (3.5-5.7); Albumin/Globulin Ratio 1.3 (1.1-2.2); Alkaline Phosphatase 76 Units/L (34-104); Aspartate Amino Transferase 11 Units/L (13-39); BUN/Creatinine Ratio 9 (6-26); Bilirubin,Total 0.9 mg/dL (0.3-1.0); Blood Urea Nitrogen 13 mg/dL (8-23); Calcium 9.6 mg/dL (8.6-10.3); Carbon Dioxide 30 mEq/L (23-29); Chloride 94 mEq/L (98-107); Globulin 2.9 g/dL (2.4-3.5); Glucose 216 mg/dL (70-105); Osmolality,Calculated 279 (280-300); Potassium 4.3 mEq/L (3.5-5.1); Sodium 131 mEq/L (136-145); Total Protein 6.8 g/dL (6.4-8.9); eGFR For African Americans 58 (> 60); eGFR For Non-African Americans 47 (> 60)
[2019-04-29] MEDS ORDERED: Ipratropium/Albuterol Neb 3 ML IH ONE (00:57)
[2019-04-29 01:05] LABS: Bacteria,Urine Few per hpf (None-Few); Squamous Epithelial Cell,Urine Few per lpf (None-Few)
[2019-04-29] MEDS ORDERED: levoFLOXacin 500 MG/100 ML 500 MG/100 ML BAG IVPB ONE (01:26)
[2019-04-29] MEDS ORDERED: Sulfamethoxazole/Trimeth DS 1 EACH TABLET PO ONE (01:26)
[2019-04-29] MEDS ORDERED: D5% in Water 1,000 ML IVC PRN ×2 (01:40→02:36)
[2019-04-29] MEDS ORDERED: Dextrose Gel 15 GM/37.5 ML TUBE PO PRN ×6 (01:40→02:36)
[2019-04-29] MEDS ORDERED: *HR* Dextrose 50 % in Water (Syg) 50 ML SYRINGE IVP PRN ×2 (01:40→02:36)
[2019-04-29] MEDS ORDERED: Insulin LISPRO 300 UNITS/3 ML VIAL SQ SCH ×2 (01:45→07:30)
[2019-04-29] MEDS ORDERED: Naloxone 0.4 MG/ML INJ IVP PRN (02:36)
[2019-04-29] MEDS ORDERED: Ipratropium/Albuterol Neb 3 ML IH PRN (02:36)
[2019-04-29] MEDS ORDERED: Nitroglycerin 0.4 MG TAB.SUBL SL PRN (02:36)
[2019-04-29] MEDS ORDERED: Acetaminophen 325 MG TABLET PO PRN (02:54)
[2019-04-29] MEDS: 0.9 % Sodium Chloride 1,000 ML IVC SCH ×3 (03:34→22:17)
[2019-04-29] MEDS: Ipratropium/Albuterol Neb 3 ML IH PRN ×3 (03:56→21:28)
[2019-04-29 05:59] LABS: Hematocrit 31.5 % (37.5-50.1); Hemoglobin 9.8 g/dL (12.9-16.9); Mean Corpuscular HGB Conc 31.1 g/dL (31.6-35.5); Mean Corpuscular Hemoglobin 25.2 pg (28.0-33.3); Mean Platelet Volume 8.9 fL (9.4-12.4); Platelet Count 199 K/mcL (140-400); Red Blood Count 3.89 M/mcL (4.19-5.50); Red Cell Distribution Width 15.9 % (11.5-14.5); White Blood Count 9.9 K/mcL (4.3-11.1)
[2019-04-29] MEDS: *HR* Enoxaparin 40 MG/0.4 ML SYRINGE SQ SCH (06:02)
[2019-04-29] MEDS: MethylPREDNISolone 40 MG/ML VIAL IVP SCH ×3 (06:03→22:48)
[2019-04-29] MEDS: *HR* Metformin 500 MG TABLET PO SCH ×2 (08:34→19:59)
[2019-04-29] MEDS: *HR* Glimepiride 2 MG TABLET PO SCH (08:34)
[2019-04-29] MEDS: Gabapentin 400 MG CAPSULE PO SCH ×4 (08:34→19:59)
[2019-04-29] MEDS: Finasteride 5 MG TABLET PO SCH (08:34)
[2019-04-29] MEDS: Budesonide/Formoterol 80/4.5 1 PUFF INH IH SCH ×2 (08:35→20:03)
[2019-04-29] MEDS: Insulin LISPRO 300 UNITS/3 ML VIAL SQ SCH ×4 (08:38→20:03)
[2019-04-29] MEDS: Sulfamethoxazole/Trimeth DS 1 EACH TABLET PO SCH ×2 (08:43→20:00)
[2019-04-29] MEDS ORDERED: ALPRAZolam 1 MG TABLET PO SCH (09:00)
--- NOTE | 2019-04-29 09:59 | Internal Med History&Physical ---
Date of Encounter: 04/29/19 Time of Encounter: 09:57 Assessment and Plan (1) Acute exacerbation of chronic obstructive airways disease Current visit: Yes Status: Resolved He is on Solu-Medrol Levaquin duo nebs. He is on BiPAP at home he has been on his home BiPAP settings. (2) UTI (urinary tract infection) Current visit: Yes Status: Acute Urine cultures pending blood cultures are pending he is on Levaquin. His white count has come down from initial presentation. He did have a fever Qualifiers: Urinary tract infection type: catheter-associated UTI Indwelling urinary catheter type: indwelling urethral catheter Encounter type: initial encounter Qualified Code(s): T83.511A - Infection and inflammatory reaction due to indwelling urethral catheter, initial encounter; N39.0 - Urinary tract infection, site not specified (3) Diabetes Current visit: Yes Status: Chronic He is on sliding scale he is on his home dose of Lantus he is on Accu-Cheks and other home medication. 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 We will continue to monitor Qualifiers: Chronic kidney disease stage: stage 3 (moderate) Qualified Code(s): N18.3 - Chronic kidney disease, stage 3 (moderate) (8) Diastolic heart failure with preserved ejection fraction Current visit: Yes Status: Acute He does not appear to be in heart failure he is getting some IV fluids will continue to monitor this (9) Chronic pain Current visit: Yes Status: Chronic I do not plan on make any changes to his home medication Qualifiers: Chronic pain type: chronic pain syndrome Qualified Code(s): G89.4 - Chronic pain syndrome (10) MARILYNN (obstructive sleep apnea) Current visit: Yes Status: Chronic Will keep him on his home BiPAP or he is here (11) Full code status Current visit: Yes Status: Acute He is full code. Internal Medicine - H&P: HPI Chief complaint: Shortness of breath Admitted From: Home History of present illness: Mr. Bose is a 63 year old male With a past medical history of an indwelling Bobo with BPH hospice to have urologic surgery upcoming. He has a history of chronic COPD he is on BiPAP at home. He is frequently hospitalized for COPD exacerbations. He started feeling coughing wheezing shortness of breath he was has a cough he can get up any sputum he denies any hemoptysis. He started running a fever last night he was dizzy he fell backwards and hit the cabinets with his rear and back he had pain in his right ear after he fell but he denies any back pain or any rear chest pain now. He denies any chest pain palpitations. He is feeling better with his breathing. He is still short of breath but it is getting closer baseline he does have some wheezing but this can close her baseline. He was nitrite positive in the emergency room on his urine blood cultures are pending urine cultures are pending. He does not have any dysuria but he has about chronic ind welling Bobo he has not had any blood since he initially put in a catheter. This is the fourth time he has had a catheter. He is been eating okay he denies nausea vomiting Past Med Surg Social Fam HX - Past Medical History Medical history: arthritis, asthma, CHF, COPD, diabetes, hypertension Additional medical history: PT STATES HE STARTED SMOKING @17 YRS OF AGE. NOSE FX. CPID. ENLARGED LIVER. He has an indwelling Bobo and is undergoing a urologic workup for this., Guillain-Stafford, demyelinating neuropathy lumbar disc disease Psychiatric history: anxiety, depression - Past Surgical History Surgical History: hip replacement (Bilateral), other Additional surgical history: 03/31/18 MYELOGRAM @[place]. HERNIA REPAIR X2. Bilateral Carpal Tunnel Surgery. 2 hip replacements stimulator trial May 2014 - Social History Smoking Status: Former smoker Smokeless Tobacco Status: No Alcohol use: none Drug use: none - Family History Father Adopted: No Family Member Ethnicity: Non- Living Status: Hx Family Cardiac Disorders: Yes ([place]) Hx Family Respiratory Disorders: Yes (COPD) Hx Family Cancer: No Hx Family GI Disorders: No Hx Family Endocrine Disorder: No Hx Family Neuromuscular Disorders: No Hx Family Neurologic Disorders: No Hx Family HEENT Disorders: No Hx Family Autoimmune Disorders: No Mother Adopted: [place]: [place] Family Member Ethnicity: Non- Living Status: Age at : 58 Cause of : cancer Hx Family Cardiac Disorders: No Hx Family Respiratory Disorders: No Hx Family Cancer: Yes (Breast long brain) Hx Family GI Disorders: No Hx Family Genitourinary Disorders: No Hx Family Endocrine Disorder: No Hx Family Musculoskeletal Disorders: No Hx Family Neuromuscular Disorders: No Hx Family Neurologic Disorders: No Hx Family HEENT Disorders: No Hx Family Autoimmune Disorders: No Hx Family Reproductive Disorders: No Hx Family Psychosocial Disorders: No Hx Family Medical Disorders: No Internal Medicine - H&P: Meds Ipratropium/Albuterol Neb [Duoneb] 3 ml IH 5XD PRN 08/04/16 [History] Acetaminophen [Tylenol] 650 mg PO Q6HR PRN 01/07/19 [History] Albuterol Sulfate [Ventolin Hfa] 2 puff IH Q6H PRN 01/07/19 [History] Losartan Potassium [Cozaar] 50 mg PO DAILY 01/07/19 [History] ALPRAZolam [Xanax 1 MG Tablet] 1 mg PO TID 04/12/19 [History] Cyclobenzaprine [Flexeril] 10 mg PO TID 04/12/19 [History] Glimepiride [Amaryl] 2 mg PO DAILY 04/12/19 [History] Insulin ASPART [Novolog Flexpen] 2 - 6 unit SQ TIDWM 04/12/19 [History] Insulin DETEMIR [Levemir Flextouch] 28 unit SQ HS 04/12/19 [History] Finasteride [Proscar] 5 mg PO DAILY #30 tablet 04/16/19 [Rx] Gabapentin [Neurontin] 400 mg PO QID #21 04/16/19 [Rx] Gabapentin [Neurontin] 400 mg PO QID #21 capsule 04/16/19 [Rx] Allergy/AdvReac Type Severity Reaction Status Date / Time cephalexin AdvReac Rash Verified 04/12/19 16:38 clindamycin AdvReac Rash Verified 04/12/19 16:38 Influenza Virus Vaccines AdvReac See Verified 04/29/19 03:00 Comments All Systems PM: A 10-system review of systems was performed and is negative for pertinent findings except as documented above in the HPI. - Constitutional Constitutional: fatigue, fever(s), falls - EENT Eyes: no change in vision Nose, mouth and throat: nasal discharge, no sore throat - Cardiovascular Cardiovascular ROS IM: dyspnea, lightheadedness, no edema, no palpitations, no syncope - Respiratory Respiratory: cough, dyspnea, wheezing - Gastrointestinal Gastrointestinal: no constipation, no cramping, no hematochezia, no loose stools, no melena, no nausea, no vomiting - Genitourinary Genitourinary ROS male: as per HPI - Musculoskeletal Musculoskeletal ROS IM: back pain (Chronic) - Integumentary Integumentary IM: no pruritus, no rash, no jaundice - Constitutional Vitals: Temp Pulse Resp BP Pulse Ox 97.6 F 88 16 112/71 94 04/29/19 07:42 04/29/19 07:42 04/29/19 07:42 04/29/19 07:42 04/29/19 07:42 General appearance: Present: A&O X 3, no acute distress, obese, answers questions appropriately - Neck Neck exam general surgery: Present: supple, trachea midline. Absent: lymphadenopathy - Respiratory Respiratory exam: Present: decreased breath sounds, prolonged expiratory phase, wheezes - Cardiovascular Cardiovascular exam: Present: RRR, +S1, +S2. Absent: systolic murmur - GI/Abdominal GI/Abdominal exam: Present: hernia (Umbilical nontender), normal bowel sounds, soft, no peritoneal signs. Absent: guarding, tenderness - Extremities Exam Extremities exam: Present: normal capillary refill. Absent: pedal edema - Skin Skin exam: Present: dry, warm. Absent: rash Internal Med - H&P Results - Labs CBC & Chem 7: 04/29/19 05:40 04/29/19 05:40 Labs: Short CBC 04/28/19 04/29/19 Range/Units 23:50 05:40 WBC 14.6 H 9.9 (4.3-11.1) K/mcL Hgb 11.3 L 9.8 L D (12.9-16.9) g/dL Hct 35.9 L 31.5 L (37.5-50.1) % Plt Count 249 199 (140-400) K/mcL Neutrophils # 11.7 H (1.6-8.9) K/mcL BMP 04/28/19 04/29/19 23:50 05:40 Sodium 131 L 132 L Potassium 4.3 4.0 Chloride 94 L 96 L Carbon Dioxide 30 H 32 H BUN 13 15 Creatinine 1.49 H 1.54 H Glucose 216 H 261 H Calcium 9.6 9.0 Cardiac Enzymes 04/28/19 Range/Units 23:50 Troponin I < 0.03 (< 0.04) ng/mL Liver Function 04/28/19 Range/Units 23:50 Total Bilirubin 0.9 (0.3-1.0) mg/dL AST 11 L (13-39) Units/L ALT 15 (7-52) Units/L Alkaline Phosphatase 76 (34-104) Units/L Albumin 3.9 (3.5-5.7) g/dL Urine 04/29/19 Range/Units 00:53 Urine Color Yellow (Yellow) Urine Clarity Clear (Clear) Urine pH 7.5 (5.0-8.0) pH Units Ur Specific [place] 1.015 (1.010-1.025) Urine Protein 100 H (Neg-Trace) mg/dL Urine Glucose (UA) Normal (Normal) mg/dL - Impressions ITS Impressions Chest X-Ray 04/28/19 23:38 IMPRESSION: No active cardiopulmonary disease D/ / Austin Lee MD / Austin Lee MD Interpreting Provider: Austin Lee MD
[2019-04-29] MEDS: levoFLOXacin 750 MG/150 ML 750 MG/150 ML BAG IVPB SCH (17:08)
[2019-04-29] MEDS: ALPRAZolam 1 MG TABLET PO PRN (20:02)
[2019-04-29] MEDS: Insulin DETEMIR 100 UNIT/ML X5UNITS SQ SCH (20:04)
[2019-04-29] MEDS ORDERED: Insulin DETEMIR 100 UNIT/ML X5UNITS SQ SCH (21:00)
[2019-04-30] MEDS: *HR* Enoxaparin 40 MG/0.4 ML SYRINGE SQ SCH (05:34)
[2019-04-30] MEDS: Ipratropium/Albuterol Neb 3 ML IH PRN ×4 (05:40→22:40)
[2019-04-30 05:48] LABS: Basophils % 0.1 %; Hematocrit 31.4 % (37.5-50.1); Hemoglobin 9.7 g/dL (12.9-16.9); Immature Granulocytes % 1.1 % (0-4); Lymphocytes # 0.8 K/mcL (0.6-4.6); Lymphocytes % 7.5 %; Mean Corpuscular HGB Conc 30.9 g/dL (31.6-35.5); Mean Corpuscular Hemoglobin 25.5 pg (28.0-33.3); Mean Corpuscular Volume 82.6 fL (83.0-100.0); Mean Platelet Volume 9.4 fL (9.4-12.4); Monocytes # 0.2 K/mcL (0.0-1.3); Monocytes % 2.3 %; Platelet Count 208 K/mcL (140-400); Red Cell Distribution Width 15.2 % (11.5-14.5); White Blood Count 10.1 K/mcL (4.3-11.1)
[2019-04-30] MEDS: MethylPREDNISolone 40 MG/ML VIAL IVP SCH (06:13)
[2019-04-30 06:22] LABS: Calcium 9.6 mg/dL (8.6-10.3); Potassium 5.1 mEq/L (3.5-5.1)
[2019-04-30] MEDS: Budesonide/Formoterol 80/4.5 1 PUFF INH IH SCH ×2 (07:34→22:38)
[2019-04-30] MEDS: *HR* Glimepiride 2 MG TABLET PO SCH (07:56)
[2019-04-30] MEDS: Sulfamethoxazole/Trimeth DS 1 EACH TABLET PO SCH ×2 (07:56→21:21)
[2019-04-30] MEDS: Finasteride 5 MG TABLET PO SCH (07:56)
[2019-04-30] MEDS: Gabapentin 400 MG CAPSULE PO SCH ×4 (07:57→21:21)
[2019-04-30] MEDS: *HR* Metformin 500 MG TABLET PO SCH ×2 (07:57→21:21)
[2019-04-30] MEDS: Insulin LISPRO 300 UNITS/3 ML VIAL SQ SCH ×4 (08:00→21:20)
--- NOTE | 2019-04-30 08:43 | Internal Med Progress Note ---
Date of Encounter: 04/30/19 Time of Encounter: 13:06 - Assessment and plan (1) Acute exacerbation of chronic obstructive airways disease Current Visit: Yes Status: Resolved Assessment and plan: He is using BiPAP at his home settings at night. He is on oxygen during the day. We will continue Solu-Medrol duo nebs and Levaquin. will lower the solumedrol (2) UTI (urinary tract infection) Current Visit: Yes Status: Acute Assessment and plan: Cultures pending as well as blood cultures he is on Levaquin for catheter associated UTI. Qualifiers: Urinary tract infection type: catheter-associated UTI Indwelling urinary catheter type: indwelling urethral catheter Encounter type: initial encounter Qualified Code(s): T83.511A - Infection and inflammatory reaction due to indwelling urethral catheter, initial encounter; N39.0 - Urinary tract infection, site not specified (3) Diabetes Current Visit: Yes Status: Chronic Assessment and plan: Tenuous home medication he is getting sliding scale. 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 Qualifiers: Hypertension type: essential hypertension Qualified Code(s): I10 - Esse ntial (primary) hypertension (5) DVT prophylaxis Current Visit: Yes Status: Acute Assessment and plan: Lovenox (6) Chronic kidney disease Current Visit: Yes Status: Chronic Qualifiers: Chronic kidney disease stage: stage 3 (moderate) Qualified Code(s): N18.3 - Chronic kidney disease, stage 3 (moderate) (7) Diastolic heart failure with preserved ejection fraction Current Visit: Yes Status: Acute Assessment and plan: He is at baseline with this will watch his fluid intake continue home medication (8) Chronic pain Current Visit: Yes Status: Chronic Assessment and plan: He is on his home medication will continue that for now. Qualifiers: Chronic pain type: chronic pain syndrome Qualified Code(s): G89.4 - Chronic pain syndrome (9) MARILYNN (obstructive sleep apnea) Current Visit: Yes Status: Chronic Assessment and plan: he is on his home settings BiPAP at night (10) Full code status Current Visit: Yes Status: Acute - Subjective Interval history: he is feeling better today. breathing baseline. no fever, no n.v, no cp, no palp no dizzy. no hematuria. no stool but declines medicaiton. no abd pain. appetite good - Constitutional Vitals: Temp Pulse Resp BP Pulse Ox 97.3 F L 95 16 111/66 95 04/30/19 05:39 04/30/19 05:39 04/30/19 07:34 04/30/19 05:39 04/30/19 07:34 General appearance: Present: A&O X 3, no acute distress, obese, answers questions appropriately - Head Head exam: Present: atraumatic, normocephalic - Neck Neck exam general surgery: Present: supple, trachea midline. Absent: lymphadenopathy - Respiratory Respiratory exam: Present: CTAB - Cardiovascular Cardiovascular exam: Present: RRR, +S1, +S2. Absent: systolic murmur - GI/Abdominal GI/Abdominal exam: Present: normal bowel sounds, soft, no peritoneal signs. Absent: mass, tenderness - Extremities Exam Extremities exam: Present: normal capillary refill, warm. Absent: mottling, pedal edema - Skin Skin exam: Present: dry, warm. Absent: rash Internal Medicine: Result - Labs CBC & Chem 7: 04/30/19 05:20 04/30/19 05:20 Labs: Short CBC 04/30/19 Range/Units 05:20 WBC 10.1 (4.3-11.1) K/mcL Hgb 9.7 L (12.9-16.9) g/dL Hct 31.4 L (37.5-50.1) % Plt Count 208 (140-400) K/mcL Neutrophils # 9.0 H (1.6-8.9) K/mcL BMP 04/30/19 05:20 Sodium 136 Potassium 5.1 D Chloride 103 Carbon Dioxide 28 BUN 25 H Creatinine 1.52 H Glucose 319 H Calcium 9.6 Consult Discharge Plan - Plan Referrals: Toribio Watts MD [Primary Care Provider] -
--- NOTE | 2019-04-30 10:08 | Electrocardiograph Report ---
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
[2019-04-30] MEDS: 0.9 % Sodium Chloride 1,000 ML IVC SCH (13:28)
[2019-04-30] MEDS: methylPREDNISolone 125 MG/2 ML VIAL IVP SCH (17:16)
[2019-04-30] MEDS: levoFLOXacin 750 MG/150 ML 750 MG/150 ML BAG IVPB SCH (17:17)
[2019-04-30] MEDS: ALPRAZolam 1 MG TABLET PO PRN (21:21)
[2019-04-30] MEDS: Insulin DETEMIR 100 UNIT/ML X5UNITS SQ SCH (21:25)
[2019-05-01] MEDS: methylPREDNISolone 125 MG/2 ML VIAL IVP SCH ×2 (00:03→08:13)
[2019-05-01] MEDS: 0.9 % Sodium Chloride 1,000 ML IVC SCH (02:36)
[2019-05-01 05:43] LABS: Basophils % 0.1 %; Eosinophils % 0.1 %; Hematocrit 30.7 % (37.5-50.1); Hemoglobin 9.4 g/dL (12.9-16.9); Immature Granulocytes % 0.9 % (0-4); Lymphocytes # 0.5 K/mcL (0.6-4.6); Lymphocytes % 3.6 %; Mean Corpuscular HGB Conc 30.6 g/dL (31.6-35.5); Mean Corpuscular Hemoglobin 25.5 pg (28.0-33.3); Mean Corpuscular Volume 83.2 fL (83.0-100.0); Mean Platelet Volume 9.3 fL (9.4-12.4); Monocytes # 0.2 K/mcL (0.0-1.3); Monocytes % 1.5 %; Platelet Count 212 K/mcL (140-400); Red Blood Count 3.69 M/mcL (4.19-5.50); Red Cell Distribution Width 15.4 % (11.5-14.5); Segmented Neutrophils % 93.8 %; White Blood Count 13.3 K/mcL (4.3-11.1)
[2019-05-01 05:44] LABS: Neutrophils # 12.5 K/mcL (1.6-8.9)
[2019-05-01] MEDS: *HR* Enoxaparin 40 MG/0.4 ML SYRINGE SQ SCH (06:27)
[2019-05-01] MEDS: Insulin LISPRO 300 UNITS/3 ML VIAL SQ SCH ×2 (08:13→12:01)
[2019-05-01] MEDS: Finasteride 5 MG TABLET PO SCH (08:14)
[2019-05-01] MEDS: Gabapentin 400 MG CAPSULE PO SCH ×2 (08:14→11:59)
[2019-05-01] MEDS: *HR* Glimepiride 2 MG TABLET PO SCH (08:14)
[2019-05-01] MEDS: *HR* Metformin 500 MG TABLET PO SCH (08:14)
[2019-05-01] MEDS: Sulfamethoxazole/Trimeth DS 1 EACH TABLET PO SCH (08:14)
[2019-05-01 08:35] LABS: Calcium 9.7 mg/dL (8.6-10.3); Potassium 5.5 mEq/L (3.5-5.1)
[2019-05-01] MEDS: ALPRAZolam 1 MG TABLET PO PRN (08:43)
[2019-05-01] MEDS: Budesonide/Formoterol 80/4.5 1 PUFF INH IH SCH (08:44)
[2019-05-01] MEDS: Ipratropium/Albuterol Neb 3 ML IH PRN ×2 (08:45→14:49)
[2019-05-01 11:08] VITALS: BP 106/66
[2019-05-01 11:20] LABS: Basophils % 0.1 %; Hematocrit 31.4 % (37.5-50.1); Hemoglobin 9.8 g/dL (12.9-16.9); Lymphocytes # 0.4 K/mcL (0.6-4.6); Lymphocytes % 3.1 %; Mean Corpuscular HGB Conc 31.2 g/dL (31.6-35.5); Mean Corpuscular Hemoglobin 25.9 pg (28.0-33.3); Mean Corpuscular Volume 82.8 fL (83.0-100.0); Mean Platelet Volume 9.6 fL (9.4-12.4); Monocytes # 0.3 K/mcL (0.0-1.3); Neutrophils # 12.4 K/mcL (1.6-8.9); Platelet Count 216 K/mcL (140-400); Red Blood Count 3.79 M/mcL (4.19-5.50); Red Cell Distribution Width 15.6 % (11.5-14.5); Segmented Neutrophils % 93.8 %; White Blood Count 13.2 K/mcL (4.3-11.1)
[2019-05-01 11:34] LABS: Calcium 9.9 mg/dL (8.6-10.3); Potassium 5.1 mEq/L (3.5-5.1)
--- NOTE | 2019-05-01 14:48 | Discharge Summary ---
Orders not resulted at time of discharge: Pending orders 04/28/19 23:50 Culture,Blood [] Stat Date of Encounter: 05/01/19 Time of Encounter: 10:45 - Discharge Diagnosis (1) Acute exacerbation of chronic obstructive airways disease Priority: Primary Status: Resolved Comments: Was initially short of breath upon presentation was wheezing he was placed on Solu-Medrol given duo nebs he was placed on his home BiPAP settings. He also had his home oxygen. He did improve lungs are clear to auscultation on the day he was discharged she was able to ambulate he was back at his baseline from a respiratory standpoint I did finish up a couple of days of Levaquin and give her prednisone taper he is to follow-up with any changes (2) UTI (urinary tract infection) Priority: Secondary Status: Acute Comments: He has a chronic indwelling Bobo for urinary retention. His urine was nitrite positive urine culture was sent after antibiotics of the urine culture did not grow anything but he had an elevated white count he had a fever we will continue him on 5 more days of Bactrim as he has an indwelling Bobo. He also has a follow-up with urology will have him schedule that they are considering doing a TURP. Continue Flomax and Proscar Qualifiers: Urinary tract infection type: catheter-associated UTI Indwelling urinary catheter type: indwelling urethral catheter Encounter type: initial encounter Qualified Code(s): T83.511A - Infection and inflammatory reaction due to indwelling urethral catheter, initial encounter; N39.0 - Urinary tract infection, site not specified (3) Diabetes Priority: Primary Status: Chronic Comments: did not make any changes to home medication but he did get sliding scale Qualifiers: Diabetes mellitus type: type 2 Diabetes mellitus customer contact representative insulin use: with customer contact representative use Diabetes mellitus complication status: without complication Qualified Code(s): E11.9 - Type 2 diabetes mellitus without complications; Z79.4 - care home (current) use of insulin (4) Hypertension Priority: Secondary Status: Chronic Comments: no Changes were made to his home medication Qualifiers: Hypertension type: essential hypertension Qualified Code(s): I10 - Essential (primary) hypertension (5) DVT prophylaxis Priority: Secondary Status: Acute Comments: lovenox (6) Chronic kidney disease Priority: Secondary Status: Chronic Comments: He did remain at baseline he did get IV fluids Qualifiers: Chronic kidney disease stage: stage 3 (moderate) Qualified Code(s): N18.3 - Chronic kidney disease, stage 3 (moderate) (7) Diastolic heart failure with preserved ejection fraction Priority: Secondary Status: Acute Comments: His Lasix was held for the dehydration and renal insufficiency. He was not short of breath beyond his baseline when he went home (8) Chronic pain Priority: Secondary Status: Chronic Comments: No changes were made to his home medications Qualifiers: Chronic pain type: chronic pain syndrome Qualified Code(s): G89.4 - Chronic pain syndrome (9) MARILYNN (obstructive sleep apnea) Priority: Secondary Status: Chronic Comments: On BiPAP at home and was on BiPAP here (10) Full code status Priority: Secondary Status: Acute Hospital course: Mr. Bose is a 63 year old male E chronic urinary retention with indwelling Bobo due to BPH and elevated PSA presents to the emergency room short of breath coughing wheezing febrile tachycardic. His urine was positive for nitrites he did not have anything growing in his urine but his urine culture was sent after he was started on antibiotics he had IV Levaquin and by mouth Bactrim while he was here his fever went away. His blood cultures were negative for 48 hours. He did have an elevated white count that went down. He is scheduled to see urology for the urine retention and possible TURP. His COPD improved with Solu-Medrol Levaquin duo nebs his home BiPAP and oxygen during the day he was back at baseline from a respiratory standpoint when he was discharged. He has chronic pain no changes were made to that medication he did not have any blood pressure medication changes made this admission I did not change his diabetic medicines as well Discharge discussed with: patient - Time Spent with Patient Total time spent providing and/or coordinating discharge services: - Discharge Medications Prescriptions: New Sulfamethoxazole/Trimeth DS [Bactrim Ds] 1 each PO BID #8 tablet PredniSONE [Deltasone] 60 mg PO DAILY #21 tablet Tamsulosin [Flomax] 0.4 mg PO DAILY capsule metFORMIN [Glucophage] 1,000 mg PO BID tablet levoFLOXacin [Levaquin] 500 mg PO DAILY #5 tablet Insulin DETEMIR [Levemir] 28 unit SQ HS [id number] Nitroglycerin 0.4 mg SL Q5MPRN PRN tab.subl PRN Reason: Pain Budesonide/Formoterol 80/4.5 [Symbicort 80/4.5] 2 puff IH BIDR inh Continued Cyclobenzaprine [Flexeril] 10 mg PO TID Glimepiride [Amaryl] 2 mg PO DAILY Insulin ASPART [Novolog Flexpen] 2 - 6 unit SQ TIDWM Insulin DETEMIR [Levemir Flextouch] 28 unit SQ HS Finasteride [Proscar] 5 mg PO DAILY #30 tablet Gabapentin [Neurontin] 400 mg PO QID #21 Gabapentin [Neurontin] 400 mg PO QID #21 capsule Ipratropium/Albuterol Neb [Duoneb] 3 ml IH 5XD PRN PRN Reason: Shortness Of Breath Albuterol Sulfate [Ventolin Hfa] 2 puff IH Q6H PRN PRN Reason: Shortness Of Breath Losartan Potassium [Cozaar] 50 mg PO DAILY Acetaminophen [Tylenol] 650 mg PO Q6HR PRN PRN Reason: Pain ALPRAZolam [Xanax 1 MG Tablet] 1 mg PO TID Home Medications: Ipratropium/Albuterol Neb [Duoneb] 3 ml IH 5XD PRN 08/04/16 [History] Acetaminophen [Tylenol] 650 mg PO Q6HR PRN 01/07/19 [History] Albuterol Sulfate [Ventolin Hfa] 2 puff IH Q6H PRN 01/07/19 [History] Losartan Potassium [Cozaar] 50 mg PO DAILY 01/07/19 [History] ALPRAZolam [Xanax 1 MG Tablet] 1 mg PO TID 04/12/19 [History] Cyclobenzaprine [Flexeril] 10 mg PO TID 04/12/19 [History] Glimepiride [Amaryl] 2 mg PO DAILY 04/12/19 [History] Insulin ASPART [Novolog Flexpen] 2 - 6 unit SQ TIDWM 04/12/19 [History] Insulin DETEMIR [Levemir Flextouch] 28 unit SQ HS 04/12/19 [History] Finasteride [Proscar] 5 mg PO DAILY #30 tablet 04/16/19 [Rx] Gabapentin [Neurontin] 400 mg PO QID #21 04/16/19 [Rx] Gabapentin [Neurontin] 400 mg PO QID #21 capsule 04/16/19 [Rx] Budesonide/Formoterol 80/4.5 [Symbicort 80/4.5] 2 puff IH BIDR inh 05/01/19 [Rx] Insulin DETEMIR [Levemir] 28 unit SQ HS [id number] 05/01/19 [Rx] Nitroglycerin 0.4 mg SL Q5MPRN PRN tab.subl 05/01/19 [Rx] PredniSONE [Deltasone] 60 mg PO DAILY #21 tablet 05/01/19 [Rx] Sulfamethoxazole/Trimeth DS [Bactrim Ds] 1 each PO BID #8 tablet 05/01/19 [Rx] Tamsulosin [Flomax] 0.4 mg PO DAILY capsule 05/01/19 [Rx] levoFLOXacin [Levaquin] 500 mg PO DAILY #5 tablet 05/01/19 [Rx] metFORMIN [Glucophage] 1,000 mg PO BID tablet 05/01/19 [Rx] Allergies/Adverse Reactions: Allergy/AdvReac Type Severity Reaction Status Date / Time cephalexin AdvReac Rash Verified 04/12/19 16:38 clindamycin AdvReac Rash Verified 04/12/19 16:38 Influenza Virus Vaccines AdvReac See Verified 04/29/19 03:00 Comments Date of admission: 04/29/19 02:05 Primary care physician: Toribio Watts MD - Constitutional Vitals: Temp Pulse Resp BP Pulse Ox 97.3 F L 96 18 106/66 94 05/01/19 11:00 05/01/19 11:00 05/01/19 11:00 05/01/19 11:00 05/01/19 11:00 General appearance: Present: A&O X 3, no acute distress, obese, answers questions appropriately - Head Head exam: Present: atraumatic, normocephalic - Neck Neck exam general surgery: Present: supple, trachea midline. Absent: lymphadenopathy - Respiratory Respiratory exam: Present: CTAB - Cardiovascular Cardiovascular exam: Present: RRR, +S1, +S2. Absent: systolic murmur - GI/Abdominal GI/Abdominal exam: Present: distended, normal bowel sounds, no peritoneal signs. Absent: guarding, mass, soft, tenderness - Extremities Exam Extremities exam: Present: normal capillary refill. Absent: pedal edema - Skin Skin exam: Present: dry, warm. Absent: rash - Patient Status Disposition: Home Health Service Condition: Good Overall status at discharge: patient is progressing back to baseline - Discharge Instructions Instructions: Bobo Catheter Placement and Care (DC), Chronic Obstructive Pulmonary Disease (DC) Follow Up With: Lucila Malin CNP [Advanced Practice Nurse] - 05/04/19 10:30 am Forms: ED Satisfaction Letter Additional Instructions: Follow-up appointments: If there is not an appointment listed below, please call your physician and schedule a follow-up appointment. If you have congestive heart failure and your symptoms return, make an appointment with your physician. Medication List: Carry an up to date list of medications you are taking at all time. We have given you an updated medication list including any new medications that you have been prescribed. Please provide that list to your primary provider Symptoms: If your condition changes or you experience any of the following symptoms, notify your physician immediately: Unusual or worsening pain, fever, persistent nausea and vomiting, bleeding, increase in swelling (especially in your legs), sudden weight gain, extreme dizz iness, chest pain, increased drainage or redness from a wound or incision. Go to the emergency department if you experience a problem with breathing. Weights: If you have a history of swelling or shortness of breath, weigh yourself daily and notify your physician if you have a weight gain of two or more pounds in one day or 5 or more pounds in a week. If you experience any of the warning signs for stroke: Sudden numbness or weakness of the face, arm or leg; especially on one side of the body, sudden confusion, trouble speaking or understanding, sudden trouble seeing in one or both eyes, sudden trouble walking, dizziness, loss of balance or coordination, sudden sever headache with no cause; Call 911 or go to the emergency room. Stroke is a medical emergency. Some risk factors for stroke: Age, cigarette smoking, diabetes, excessive alcohol consumption, family history, high blood pressure, overweight, physical inactivity, prior stroke, heart attack, diagnosis of carotid artery stenosis or other artery disease. If you smoke, STOP: Smoking or tobacco use significantly increases your risk of heart and lung disease. Your chance of disease greatly increases if you continue to smoke. For more information, call the [place] tobacco quit line for smoking cessation 5-001-RASE-NOW ( ) - Diet and Activity Diet: diabetic diet, low fat, low cholesterol, low salt diet
--- NOTE | 2019-05-01 14:59 | Physician Discharge Referral ---
Home Health/Hosp Referral Info Transfer to: Home Health - Diagnosis (1) Acute exacerbation of chronic obstructive airways disease Priority: Secondary Status: Resolved (2) UTI (urinary tract infection) Priority: Primary Status: Acute (3) Diabetes Priority: Secondary Status: Chronic (4) Hypertension Priority: Secondary Status: Chronic (5) DVT prophylaxis Priority: Secondary Status: Acute (6) Chronic kidney disease Priority: Secondary Status: Chronic (7) Diastolic heart failure with preserved ejection fraction Priority: Secondary Status: Acute (8) Chronic pain Priority: Secondary Status: Chronic (9) MARILYNN (obstructive sleep apnea) Priority: Secondary Status: Chronic (10) Full code status Priority: Secondary Status: Acute (11) Indwelling catheter present on admission Status: Acute - Respiratory Orders Oxygen / L per min Smoking Cessation: Smoking cessation has been advised. For more information, call the [place] Tobacco Quit Line at 8-089-PKMG-NOW. - Diet/Nutrition Diet/Nutrition Orders: Cardiac, No Concentrated Sweets - Activity Activity Orders: Walker - Services Needed Following services are medically necessary services: Nursing, Home Health Aide, Physical Therapy, Occupational Therapy - Transfer Medications Prescriptions: Sulfamethoxazole/Trimeth DS [Bactrim Ds] 1 each PO BID #8 tablet Transmission Status: Pending to [facility] [address] PredniSONE [Deltasone] 60 mg PO DAILY #21 tablet Transmission Status: Pending to [facility] [address] levoFLOXacin [Levaquin] 500 mg PO DAILY #5 tablet Transmission Status: Pending to [facility] [address] Home Medications: Ipratropium/Albuterol Neb [Duoneb] 3 ml IH 5XD PRN 08/04/16 [History] Acetaminophen [Tylenol] 650 mg PO Q6HR PRN 01/07/19 [History] Albuterol Sulfate [Ventolin Hfa] 2 puff IH Q6H PRN 01/07/19 [History] Losartan Potassium [Cozaar] 50 mg PO DAILY 01/07/19 [History] ALPRAZolam [Xanax 1 MG Tablet] 1 mg PO TID 04/12/19 [History] Cyclobenzaprine [Flexeril] 10 mg PO TID 04/12/19 [History] Glimepiride [Amaryl] 2 mg PO DAILY 04/12/19 [History] Insulin ASPART [Novolog Flexpen] 2 - 6 unit SQ TIDWM 04/12/19 [History] Insulin DETEMIR [Levemir Flextouch] 28 unit SQ HS 04/12/19 [History] Finasteride [Proscar] 5 mg PO DAILY #30 tablet 04/16/19 [Rx] Gabapentin [Neurontin] 400 mg PO QID #21 04/16/19 [Rx] Gabapentin [Neurontin] 400 mg PO QID #21 capsule 04/16/19 [Rx] Budesonide/Formoterol 80/4.5 [Symbicort 80/4.5] 2 puff IH BIDR inh 05/01/19 [Rx] Insulin DETEMIR [Levemir] 28 unit SQ HS [id number] 05/01/19 [Rx] Nitroglycerin 0.4 mg SL Q5MPRN PRN tab.subl 05/01/19 [Rx] PredniSONE [Deltasone] 60 mg PO DAILY #21 tablet 05/01/19 [Rx] Sulfamethoxazole/Trimeth DS [Bactrim Ds] 1 each PO BID #8 tablet 05/01/19 [Rx] Tamsulosin [Flomax] 0.4 mg PO DAILY capsule 05/01/19 [Rx] levoFLOXacin [Levaquin] 500 mg PO DAILY #5 tablet 05/01/19 [Rx] metFORMIN [Glucophage] 1,000 mg PO BID tablet 05/01/19 [Rx] Allergies/Adverse Reactions: Allergy/AdvReac Type Severity Reaction Status Date / Time cephalexin AdvReac Rash Verified 04/12/19 16:38 clindamycin AdvReac Rash Verified 04/12/19 16:38 Influenza Virus Vaccines AdvReac See Verified 04/29/19 03:00 Comments Certification: Further, I certify that my clinical findings support that this patient is homebound (i.e. absences from home require considerable and taxing effort and are for medical reasons or church services or infrequently or short duration when for other reasons) because: Homebound Reason: Patient requires assistance of a person or device to safely leave home, Absences from home are contraindicated except to recieve medical care, Leaving home requires considerable and taxing effort due to condition (copd on oxygen indwelling ryan) Attestation: My signature below is to certify that this patient is under my care and that I, or nurse practitioner, or a physician's critical care physician assistant working with me, has a [id number] encounter with this patient.
== END 2019-05-01 15:55 | disposition home health service (06) ==
LOC: INPGRE 23:19 → EMEROOGRE 23:19 → INPGRE 04-29 02:13
PROVIDERS: ADMIT Family Medicine; ATTEND Family Medicine